=== PATIENT | female | born 1960 | race Caucasian/White ===

== ENCOUNTER 2025-06-03 15:24 | Inpatient (IN) | payer MEDICAID, SELFPAY ==
--- OUTSIDE RECORDS SUMMARY | 2025-05-26 12:45 | XMS_ITS | Encounter Summary ---
[facility] [address] [place] [address] Care Team Providers Care Maintainer Operator Name Role Phone Renato Hwang MD Primary Care Provider [phone] Reason for Visit * Reason Comments Hypertension Edema Encounter Details Date Type Department Care Team (Latest Contact Info) Description 05/26/2025 12:45 PM EDT Office Visit [facility] [address] [place] [address] Gerri Mchugh APRN [address] [place], [place] [id number] Preop cardiovascular exam (Primary Dx); Smoker; History [...] Rfl: fluticasone (FLONASE) 50 MCG/ACT nasal spray, [place] 1 spray every day by intranasal route., [...] or fail to improve. Patient or patient sales representative leather goods verbalized consent for the use of Ambient [...] shoulder documented in this encounter Care Teams Maintainer Operator Relationship Specialty Start Date End Date Renato Hwang MD [address] [place] [address] PCP - General Emergency Medicine 04/10/24 documented as of this encounter
--- OUTSIDE RECORDS SUMMARY | 2025-05-26 12:45 | XMS_ITS | Encounter Summary ---
[facility] [address] [place] [address] Care Team Providers Care Inspector Dials Name Role Phone Renato Hwang MD Primary Care Provider [phone] Reason for Visit * Reason Comments Hypertension Edema Encounter Details Date Type Department Care Team (Latest Contact Info) Description 05/26/2025 12:45 PM EDT Office Visit [facility] [address] [place] [address] Gerri Mchugh APRN [address] [place], [place] [id number] Preop cardiovascular exam (Primary Dx); Smoker; History [...] documented in this encounter Progress Notes * Gerir Mchugh APRN - 05/26/2025 12:45 PM EDT [...] Rfl: fluticasone (FLONASE) 50 MCG/ACT nasal spray, [place] 1 spray every day by intranasal route., [...] or fail to improve. Patient or patient bank representative verbalized consent for the use of [...] shoulder documented in this encounter Care Teams Inspector Dials Relationship Specialty Start Date End Date Renato Hwang MD [address] [place] [address] PCP - General Emergency Medicine 04/10/24 documented as of this encounter
[2025-06-03] VITALS (43 sets, daily range): BP systolic 90–114; BP diastolic 55–68; PULSE 84–121; RESP 14–26; TEMP 36.8–37.2; O2SAT 84–98; BMI 21.9
--- NOTE | 2025-06-03 15:30 | CT_ITS ---
PROCEDURE INFORMATION: Exam: CTA Chest With Contrast Exam date and time: 06/03/2025 4:57 PM Age: 65 years old Clinical indication: Cough and shortness of breath; Smoker's cough; Additional info: SOB, prev pe, cough smoker TECHNIQUE: Imaging protocol: Computed tomographic angiography of the chest with contrast. Exam focused on the arteries. 3D rendering (Not supervised by radiologist): MIP and/or 3D reconstructed images were created by the technologist. Radiation optimization: All CT scans at this facility use at least one of these dose optimization techniques: automated exposure control; mA and/or kV adjustment per patient size (includes targeted exams where dose is matched to clinical indication); or iterative reconstruction. Contrast material: ISO; Contrast volume: 80 ml; Contrast route: INTRAVENOUS (IV); COMPARISON: No relevant prior studies available. FINDINGS: Pulmonary arteries: Mild pulmonary artery enlargement. No PE. Aorta: Moderate atherosclerotic changes are seen within the thoracic aorta without evidence of aneurysm. Lungs: Septal line prominence at the lung apices. No acute airspace consolidation. Minor bibasilar atelectasis. Pleural spaces: Unremarkable. No pneumothorax. No pleural effusion. Heart: Unremarkable. No cardiomegaly. No pericardial effusion. Coronary arteries: Moderate coronary artery calcification. Lymph nodes: Unremarkable. No enlarged lymph nodes. Adrenal glands: 4.3 x 3.0 cm right adrenal adenoma. Bones/joints: Unremarkable. No acute fracture. Soft tissues: Unremarkable. IMPRESSION: 1. No PE. 2. Pulmonary artery hypertension. 3. Atherosclerotic changes. 4. Nonspecific biapical septal line prominence. 5. Right adrenal adenoma.
--- NOTE | 2025-06-03 15:38 | HMH.EDCP ---
Discharge Plan Referrals Follow up/Referrals: Renato Hwang MD [Primary Care Provider, Medical] - See instructions Clinical Impressions Clinical Impression: Hypoxic respiratory failure, Multiple sclerosis, Hypocalcemia, Hypokalemia, Elevated troponin Print Language Print Language: [place] Discharge ED Provider: Philip Joshi General Chief Complaint: Shortness of Breath/Dyspnea Stated Complaint: Low B/P and Low O2 Time Seen by Provider: 06/03/25 15:29 Mode of Arrival: Ambulatory Source of Information: Patient and EMS Description of Symptoms (Recalled from ER Triage Doc. by RN): parisa presents to ED via EMS for shortness of air. PAtient has no known respiratory diseases. Patient was satting in the 's. PAtient received steroids and a duoned en route to ER. History of Present Illness HPI narrative: Patient is 65-year-old female with past medical history of relapsing remitting MS not on Biologics currently pending outpatient continued evaluation, she has had this disease since 2000. Recent left femur fracture status postsurgical intervention in March, previous DVT on Eliquis for multiple years who presents emergency department for evaluation of shortness of breath. Patient smokes approximately 1.5 packs a day. Does not carry a diagnosis of COPD. She does not have chest pain. She was seen last week at PCPs office who prescribed her azithromycin and her symptoms with shortness of breath and cough have gotten worse over the weekend. Upon EMS arrival on scene patient was hypoxic and placed on high oxygen with resolution of saturations in the 90s. DuoNebs x 2, dexamethasone 10 mg. Patient takes Lasix for edema of her lower extremities but does not have heart failure. No other acute complaints at this time. Please note that above description of symptoms, in this electronic medical record under categorization of recalled from ER triage doctor by RN are reflective of an initial nursing assessment, however, is not reflective of my full history and physical exam that was personally taken and clarified. Consequentially, this preceding description of symptoms, which may include the patient's categorized chief complaint in the EMR, do not reflect my personal clinical impression, and the ultimate description of history of present illness and patient stated complaints should be deferred to this section of the note. Unless stated otherwise or congruent with this section of the note, additional signs, symptoms, or incongruence should be interpreted as inaccurate with my clinical impression. Related Data Allergies Allergy/AdvReac Type Severity Reaction Status Date / Time aspirin Allergy Hives Verified 06/03/25 15:48 cefaclor (From Ceclor) Allergy Rash Verified 06/03/25 15:48 floxacillin Allergy Rash Verified 06/03/25 15:48 PFSH [facility] Disclaimer: The information contained in this section may have been updated after the patient was seen, as this information can be updated by other users. Social History Smoking Status: Current every day smoker alcohol intake: never current occupational status: other Travel in the last 8 weeks?: None ROS Obtained: Yes Systems reviewed as appropriate & no additional complaints except as documented Physical Exam General General appearance: alert Head Head exam: atraumatic and normocephalic Eye Eye exam: Present PERRL and EOMI ENT ENT exam: Present mucous membranes moist Neck Neck exam: Present normal inspection Chest Chest inspection: Present normal inspection and symmetric chest wall rise Respiratory Respiratory exam: Present respiratory distress, wheezes and accessory muscle use Cardiovascular Cardiovascular exam: Present normal rhythm and tachycardia Abdominal Exam Abdominal exam: Present soft; Absent tenderness Extremities Exam Extremities exam: Present other (petechial rash mid webb down BLE); Absent normal inspection or edema Neurological Exam Neurological exam: Present alert Psychiatric Psychiatric exam: Present normal affect Skin Skin exam: Present warm and dry HEART Score HEART Score HEART Score assessment performed?: Yes History (anamnesis): Moderately suspicious ECG: Non-specific disturbance Age: 45-65 years Risk factors: 1-2 risk factors Troponin: 1-3x normal limit HEART Score: 5 Critical Care Critical Care Time Critical Care Time: Yes Attestation: On 06/03/25, the high probability of a clinically significant, sudden or life threatening deterioration of the following system(s) required my full and direct attention, intervention and personal management. The time I documented below is in addition to time spent performing reported procedures but includes the following listed in this critical care notation. Total Time Total Critical Care Time: 65 Medical Decision Making Satish Inquiry Pt receiving controlled substance: No Vital Signs Vital Signs: 06/03/25 15:27 06/03/25 15:30 06/03/25 15:31 Temperature 98.2 F Temperature Source Oral Pulse Rate 102 H 104 H Pulse Rate [Right Radial] 105 H Respiratory Rate 22 24 Blood Pressure 96/64 L Blood Pressure [Left Arm] 96/64 L Blood Pressure Mean Blood Pressure Mean [Left Arm] 74 Blood Pressure Source [Left Arm] Automatic Cuff Blood Pressure Position [Left Arm] Sitting 02 Sat by Pulse Oximetry 92 L 88 L 88 L Oxygen Delivery Method Nasal Cannula Oxygen Flow Rate (LPM) 4 Fraction of Inspired Oxygen 06/03/25 15:32 06/03/25 15:34 06/03/25 15:45 Temperature Temperature Source Pulse Rate 105 H 109 H 104 H Pulse Rate [Right Radial] Respiratory Rate 20 22 20 Blood Pressure 90/61 L 93/59 L Blood Pressure [Left Arm] Blood Pressure Mean Blood Pressure Mean [Left Arm] Blood Pressure Source [Left Arm] Blood Pressure Position [Left Arm] 02 Sat by Pulse Oximetry 85 L 97 85 L Oxygen Delivery Method Nasal Cannula Oxygen Flow Rate (LPM) 5 Fraction of Inspired Oxygen 06/03/25 16:00 06/03/25 16:00 06/03/25 16:00 Temperature Temperature Source Pulse Rate 100 H 102 H Pulse Rate [Right Radial] Respiratory Rate 21 Blood Pressure 93/62 L Blood Pressure [Left Arm] Blood Pressure Mean 71 Blood Pressure Mean [Left Arm] Blood Pressure Source [Left Arm] Blood Pressure Position [Left Arm] 02 Sat by Pulse Oximetry 86 L Oxygen Delivery Method Oxygen Flow Rate (LPM) Fraction of Inspired Oxygen 06/03/25 16:15 06/03/25 16:30 06/03/25 16:30 Temperature Temperature Source Pulse Rate 103 H 106 H Pulse Rate [Right Radial] Respiratory Rate 22 19 Blood Pressure 93/59 L Blood Pressure [Left Arm] Blood Pressure Mean 69 Blood Pressure Mean [Left Arm] Blood Pressure Source [Left Arm] Blood Pressure Position [Left Arm] 02 Sat by Pulse Oximetry 98 97 Oxygen Delivery Method Oxygen Flow Rate (LPM) Fraction of Inspired Oxygen 06/03/25 16:45 06/03/25 17:05 06/03/25 17:15 Temperature Temperature Source Pulse Rate 114 H 112 H 114 H Pulse Rate [Right Radial] Respiratory Rate 24 24 20 Blood Pressure Blood Pressure [Left Arm] Blood Pressure Mean Blood Pressure Mean [Left Arm] Blood Pressure Source [Left Arm] Blood Pressure Position [Left Arm] 02 Sat by Pulse Oximetry 97 87 L 93 L Oxygen Delivery Method Oxygen Flow Rate (LPM) Fraction of Inspired Oxygen 06/03/25 17:30 06/03/25 17:45 06/03/25 18:00 Temperature Temperature Source Pulse Rate 118 H 119 H 121 H Pulse Rate [Right Radial] Respiratory Rate 22 19 16 Blood Pressure Blood Pressure [Left Arm] Blood Pressure Mean Blood Pressure Mean [Left Arm] Blood Pressure Source [Left Arm] Blood Pressure Position [Left Arm] 02 Sat by Pulse Oximetry 94 L 91 L 89 L Oxygen Delivery Method Oxygen Flow Rate (LPM) Fraction of Inspired Oxygen 06/03/25 18:15 06/03/25 18:21 06/03/25 18:25 Temperature Temperature Source Pulse Rate 115 H Pulse Rate [Right Radial] Respiratory Rate Blood Pressure Blood Pressure [Left Arm] Blood Pressure Mean Blood Pressure Mean [Left Arm] Blood Pressure Source [Left Arm] Blood Pressure Position [Left Arm] 02 Sat by Pulse Oximetry 92 L 92 L Oxygen Delivery Method Nasal Cannula Vapotherm Oxygen Flow Rate (LPM) 5 25 Fraction of Inspired Oxygen 75 06/03/25 18:30 06/03/25 18:45 06/03/25 19:00 Temperature Temperature Source Pulse Rate 112 H 108 H Pulse Rate [Right Radial] Respiratory Rate 23 19 Blood Pressure 103/61 L 101/55 L Blood Pressure [Left Arm] Blood Pressure Mean 73 Blood Pressure Mean [Left Arm] Blood Pressure Source [Left Arm] Blood Pressure Position [Left Arm] 02 Sat by Pulse Oximetry 97 96 Oxygen Delivery Method Oxygen Flow Rate (LPM) Fraction of Inspired Oxygen 06/03/25 19:13 06/03/25 19:13 06/03/25 19:15 Temperature Temperature Source Pulse Rate 105 H 105 H Pulse Rate [Right Radial] Respiratory Rate 17 21 Blood Pressure 101/55 L Blood Pressure [Left Arm] Blood Pressure Mean Blood Pressure Mean [Left Arm] Blood Pressure Source [Left Arm] Blood Pressure Position [Left Arm] 02 Sat by Pulse Oximetry 93 L 86 L 84 L Oxygen Delivery Method Vapotherm Vapotherm Oxygen Flow Rate (LPM) 40 Fraction of Inspired Oxygen 35 06/03/25 19:30 06/03/25 19:45 06/03/25 19:51 Temperature Temperature Source Pulse Rate 107 H 102 H Pulse Rate [Right Radial] Respiratory Rate 22 20 Blood Pressure 113/65 Blood Pressure [Left Arm] Blood Pressure Mean Blood Pressure Mean [Left Arm] Blood Pressure Source [Left Arm] Blood Pressure Position [Left Arm] 02 Sat by Pulse Oximetry 93 L 92 L 91 L Oxygen Delivery Method Vapotherm Oxygen Flow Rate (LPM) 40 Fraction of Inspired Oxygen 45 06/03/25 20:00 06/03/25 20:15 06/03/25 20:30 Temperature Temperature Source Pulse Rate 97 H 104 H Pulse Rate [Right Radial] Respiratory Rate 17 19 Blood Pressure 105/57 L 108/67 L Blood Pressure [Left Arm] Blood Pressure Mean 70 Blood Pressure Mean [Left Arm] Blood Pressure Source [Left Arm] Blood Pressure Position [Left Arm] 02 Sat by Pulse Oximetry 94 L 93 L Oxygen Delivery Method Oxygen Flow Rate (LPM) Fraction of Inspired Oxygen 06/03/25 20:45 06/03/25 21:00 06/03/25 21:01 Temperature Temperature Source Pulse Rate 97 H 107 H 102 H Pulse Rate [Right Radial] Respiratory Rate 17 14 18 Blood Pressure 113/60 Blood Pressure [Left Arm] Blood Pressure Mean Blood Pressure Mean [Left Arm] Blood Pressure Source [Left Arm] Blood Pressure Position [Left Arm] 02 Sat by Pulse Oximetry 94 L 96 92 L Oxygen Delivery Method Oxygen Flow Rate (LPM) Fraction of Inspired Oxygen 06/03/25 21:25 Temperature Temperature Source Pulse Rate 102 H Pulse Rate [Right Radial] Respiratory Rate 25 H Blood Pressure 113/60 Blood Pressure [Left Arm] Blood Pressure Mean Blood Pressure Mean [Left Arm] Blood Pressure Source [Left Arm] Blood Pressure Position [Left Arm] 02 Sat by Pulse Oximetry 93 L Oxygen Delivery Method Vapotherm Oxygen Flow Rate (LPM) 40 Fraction of Inspired Oxygen Lab Data Labs: Lab Results 06/03/25 15:37: WBC 11.2 H, RBC 5.17, Hgb 14.3, Hct 44.3, MCV 85.7, MCH 27.7, MCHC 32.3, RDW 17.0, Plt Count 291, MPV 9.5, Neut % (Auto) 77.8, Lymph % (Auto) 12.8, Barnes % (Auto) 7.5, Eos % (Auto) 0.1, Baso % (Auto) 1.3, Neut # (Auto) 8.7 H, Lymph # (Auto) 1.4, Barnes # (Auto) 0.8, Eos # (Auto) 0.0, Baso # (Auto) 0.1, VBG pH 7.37, VBG pCO2 49.1, VBG pO2 41.8 H, VBG HCO3 27.9, VBG Total CO2 29.4 H, VBG O2 Saturation 76.6 H, VBG Base Excess 2.7 H, VBG Lactic Acid 1.9, Sodium 138, Potassium 3.2 L, Chloride 99, Carbon Dioxide 34 H, Anion Gap 8.2, BUN 29 H, Creatinine 1.10 H, Estimated Creat Clear 52, Estimated GFR 50 L, Est GFR ( Amer) 61, Glucose 163 H, Calcium 7.9 L, Magnesium 1.7, Total Bilirubin 0.4, AST 53 H, ALT 25, Alkaline Phosphatase 98, Troponin I 0.03, NT-Pro-B Natriuret Pep 7330 H, Total Protein 7.2, Albumin 3.9, Globulin 3.3 H, Albumin/Globulin Ratio 1.2, TSH < 0.02 L, Free T4 2.44 H 06/03/25 18:50: VBG pH 7.34, VBG pCO2 58.0 H, VBG pO2 56.9 H, VBG HCO3 30.7 H, VBG Total CO2 32.4 H, VBG O2 Saturation 88.1 H, VBG Base Excess 4.9 H, VBG Lactic Acid 3.5 H 06/03/25 18:57: Chlamy pneumoniae PCR Not detected, Adenovirus (PCR) Not detected, B. pertussis DNA (PCR) Not detected, Coronavirus OC43 (PCR) Not detected, Coronavirus HKU1 (PCR) Not detected, Coronavirus 229E (PCR) Not detected, SARS-CoV-2 (PCR) Not detected, Coronavirus NL63 (PCR) Not detected, Human Metapneumovir PCR Not detected, Influenza A (H1) PCR Not detected, Influ A (H1N1/09) PCR Not detected, Influenza A (H3) PCR Not detected, Influenza Type A (PCR) Not detected, Influenza Type B (PCR) Not detected, M. pneumoniae (PCR) Not detected, Parainfluenza 1 (PCR) Not detected, Parainfluenza 2 (PCR) Not detected, Parainfluenza 3 (PCR) Not detected, Parainfluenza 4 (PCR) Not detected, RSV (PCR) Not detected, Entero/Rhino (PCR) Detected A 06/03/25 19:10: Troponin I 0.04 H 06/03/25 21:31: VBG pH 7.39, VBG pCO2 50.2, VBG pO2 75.8 H, VBG HCO3 29.4, VBG Total CO2 30.9 H, VBG O2 Saturation 94.7 H, VBG Base Excess 4.3 H, VBG Lactic Acid 3.5 H, Troponin I 0.05 H 06/03/25 15:37 06/03/25 15:37 Response Orders (Tests/Meds): ED MEDICATIONS Generic Name Dose Route Start Last Admin Trade Name Freq PRN Reason Stop Dose Admin Nicotine 21 mg 06/03/25 20:56 06/03/25 21:05 Nicotine 21mg/24hr Patch TD 07/03/25 20:55 21 mg DAILYP PRN Administration Nicotine Cravings Discontinued Medications Generic Name Dose Route Start Last Admin Trade Name Freq PRN Reason Stop Dose Admin Albuterol Sulfate 20 mg 06/03/25 15:34 06/03/25 16:00 Albuterol 0.083% 2.5 Mg/3 Ml Neb IH 06/03/25 15:35 20 mg ONCE ONE Administration Ceftriaxone Sodium 1 gm/ 50 mls @ 100 mls/hr 06/03/25 15:34 06/03/25 17:50 Sodium Chloride IV 06/03/25 16:03 Infused ONCE ONE Infusion Doxycycline Hyclate 100 mg/ 250 mls @ 166.667 mls/hr 06/03/25 15:35 06/03/25 17:52 Sodium Chloride IV 06/03/25 15:36 Infused ONCE ONE Infusion Lactated Ringer's 500 mls @ 250 mls/hr 06/03/25 15:35 06/03/25 20:45 Lactated Ringer's 500ml IV 06/03/25 17:34 Infused .Q2H ONE Infusion Calcium Gluconate/Sodium Chloride 2 gm in 100 mls @ 50 mls/hr 06/03/25 17:46 06/03/25 20:44 Calcium Gluconate 2,000mg/100ml Nacl Premix IV 06/03/25 19:45 Infused ONCE ONE Infusion Methylprednisolone Sodium 250 mls @ 500 mls/hr 06/03/25 18:30 06/03/25 19:47 Succinate 1,000 mg/ Sodium IV 06/03/25 18:59 Infused Chloride ONCE ONE Infusion Iopamidol 80 ml 06/03/25 16:57 06/03/25 16:58 Iopamidol-370 (76%);100ml Bottle IV 06/03/25 16:58 80 ml ONCE ONE Administration Methylprednisolone Sodium Succinate 1,000 mg 06/03/25 18:27 06/03/25 19:05 Methylprednisolone Sod Succ 125mg Vial IV 06/03/25 18:28 Not Given ONCE ONE Potassium Chloride 40 meq 06/03/25 17:46 06/03/25 18:45 Potassium Chloride 20meq Tab PO 06/03/25 17:47 40 meq ONCE ONE Administration Sodium Chloride 50 ml 06/03/25 16:57 06/03/25 16:58 0.9 % Sodium Chloride 50 Ml Vial IV 06/03/25 16:58 50 ml ONCE ONE Administration Sodium Chloride 10 ml 06/03/25 16:57 06/03/25 16:58 Sodium Chloride 0.9% 10ml Syr (Rad Only) IV 06/03/25 16:58 10 ml ONCE ONE Administration ORDERS Category Date Time Status CT angio chest PE protocol Stat Cat Scan 06/03/25 15:30 Completed POCUS Point of Care (ER Only) Stat Exams 06/03/25 16:41 Completed BNP [NT Pro Brain Natriuretic Pep.] Stat Lab 06/03/25 15:37 Completed CBC w/Auto Diff [Complete Blood Count Auto Diff] Stat Lab 06/03/25 15:37 Completed CMP [Comprehensive Metabolic Panel] Stat Lab 06/03/25 15:37 Completed Free T4 (Free Thyroxine) Stat Lab 06/03/25 15:37 Completed Full Resp Panel w/COVID ([facility]) Routine Lab 06/03/25 18:57 Completed Magnesium Stat Lab 06/03/25 15:37 Completed TSH [Thyroid Stimulating Hormone] Stat Lab 06/03/25 15:37 Completed Trop I [Troponin I] Stat Lab 06/03/25 15:37 Completed Troponin I Q3H Lab 06/03/25 19:10 Completed Troponin I Q3H Lab 06/03/25 21:31 Completed VBG [Venous Blood Gas] Stat RT 06/03/25 15:37 Completed VBG [Venous Blood Gas] Stat RT 06/03/25 18:50 Completed VBG [Venous Blood Gas] Stat RT 06/03/25 21:31 Completed ECG Data Tracing #1: ECG Narrative: Independently interpreted by me rate is 104, rhythm is regular, axis is normal, no ST elevation in anatomical contiguous leads, T wave inversions in V2 through V4 without reciprocal changes of unknown significance given that patient is not currently having chest pain. MDM Narrative Medical Decision Narrative: In summary patient is 65-year-old female past medical history described above presents emergency department for evaluation of shortness of breath in setting of MS and chronic smoking. Patient is hemodynamically stable nontoxic-appearing upon arrival, afebrile. Given the acuity of this with productive cough I suspect it is more likely that patient has a COPD exacerbation with pneumonia then primary MS associated problem. Patient has received 2 DuoNebs prior to arrival, dexamethasone. Patient is in continued respiratory distress. She will be titrated to oxygen saturations between 88 and 92%. Her petechial rash in her bilateral lower extremities she is states is chronic and is not new. She does not appear critically ill so I doubt DIC at this time. Full sepsis bolus fluids were considered but limited judicious fluid administration will be conducted given her history that she is on Lasix with 250 cc an hour of lactated Ringer's for 2 hours. Antibiotics will be administered with ceftriaxone and doxycycline. She has had a rash to Ceclor but she has been given steroids and we will monitor this given it is a higher generation cephalosporin. She failed azithromycin so we will broaden with doxycycline. Workup in total be conducted with hematologic labs VBG CT pulmonary embolism protocol, EKG, troponin. Patient is negative and /22. She is protecting her airway will defer intubation at this time although she is slightly tachypneic respiratory rate 30 times per minute will keep a close eye on her. She has a weak cough. Initial workup reviewed by me, hematologic labs are largely nonactionable with exception of hypokalemia and hypocalcemia which will be repleted. Formal read shows evidence of pulmonary artery hypertension, nonspecific biapical septal line prominence, right sided incidental adrenal adenoma 4.3 x 3 cm. Upon repeat evaluation patient appears well-perfused and euvolemic therefore we will stop crystalloid resuscitation given [id number] ultrasound shows decreased ejection fraction and sepsis bolus fluids was considered will be deferred. Procedure: Procedure form was [id number] ultrasound. Procedure performed by Philip Joshi. Using the phased array probe parasternal long and apical four-chamber views were obtained, slightly decreased ejection fraction no large pericardial effusion. Images were saved to permanent archive and were technically adequate. Patient tolerated the procedure well. I discussed the case with Jani Brown with [facility] at approximately 5:40 PM. Unfortunately they are on high-level divert and are unable to accept this patient at this time and recommend that I call [facility]. Stated that if I am unable to transfer patient to call back in the morning and see if they can override divert but will not place the patient on the wait list at this time. I spoke with critical care non destructive evaluation specialist for [facility] on-call at 6:05 PM, they are of the opinion that patient is stable enough for the floor. Given that their VBG looks okay I do agree with this patient will likely need BiPAP but at [facility] they are able to conduct this on the floor therefore the hospitalist will call me back. Upon repeat evaluation patient is requiring 6 L nasal cannula will transition to high flow Vapotherm at this time. At this time we will give 1000 mg of methylprednisolone IV given patient will be here for a possible significant amount of time. VBG will be repeated. CO2 is uptrending and is now 58 but still has compensated acid-base status had significant improvement of tachypnea after putting on Vapotherm 40 L 60% is now breathing approximately 20 times a minute. Lactic acid went from 1-3.5 however given the amount of DuoNebs and the fact the original 1 is normal and patient is well-perfused I suspect this is type B. I discussed case once again with critical care non destructive evaluation specialist [facility] on-call at approximately 8:50 PM. Unfortunately they have no beds at this time and are able to take this patient. I will now contact [facility]. Patient is currently on high flow nasal cannula 40 L 45%. Swabs positive for rhino enterovirus. [facility] was contacted who called back at approximately 9:15 PM, they are at maximum capacity except for trauma and palmer. Will contact [facility] at this time. Repeat VBG at this time shows stable respiratory status. On repeat evaluation patient has respiratory rate in the low 20s which is improved from the low 30s originally. I discussed case with [facility] Dr. Conteh who graciously accepted patient for transfer for continued evaluation at this time.
[2025-06-03 15:45] LABS: Hematocrit 44.3 % (37.0-47.0); Hemoglobin 14.3 g/dL (12.2-16.2); Immature Granulocytes % 0.5 %; Mean Corpuscular HGB Conc 32.3 g/dL (31.8-35.4); Mean Corpuscular Hemoglobin 27.7 pg (27.0-31.2); Mean Corpuscular Volume 85.7 fl (81-99); Nucleated Red Blood Cells % 0 %; Platelet Count 291 K/mm3 (142-424); Red Blood Count 5.17 M/mm3 (4.20-5.40); Red Cell Distribution Width-SD 52.4 fL; White Blood Count 11.2 K/mm3 (4.8-10.8)
[2025-06-03 15:50] LABS: Lactate Venous 1.9 mmol/L (0.4-2.0); VBG HCO3 27.9 mmol/L (23-30); VBG PCO2 49.1 mmol/L (35-51); VBG PH 7.37 mmol/L (7.31-7.41); VBG PO2 41.8 mmol/L (28-40)
[2025-06-03] MEDS: CEFTRIAXONE 1 GM 1 GM in 0.9 % SODIUM CHLORIDE 50 ML IV (15:55)
[2025-06-03] MEDS: DOXYCYCLINE HYCLATE 100 MG in 0.9 % SODIUM CHLORIDE 250 ML 166.67 MG IV (15:58)
[2025-06-03] MEDS: RINGERS SOLUTION,LACTATED 500 ML 250 ML IV (15:59)
[2025-06-03] MEDS: ALBUTEROL 0.083% 2.5 MG/3 ML NEB 20 MG IH (16:00)
--- OUTSIDE RECORDS SUMMARY | 2025-06-03 16:00 | XMS_ITS | Encounter Summary ---
[facility] Organization [facility] Address [address] [place] [address] Care Team Providers Care Acetylene Torch Operator Name Role Phone Renato Hwang MD Primary Care Provider [phone] Encounter Details Date Type Department Care Team (Late st Contact Info) Description 05/26/2025 Patient rounding ([facility] only) [facility] [address] [place] [address] Gerri Mchugh APRN [address] [place], [place] [id number] Social History Tobacco Use Types Packs/Day Years [...] PM EDT documented as of this encounter Progress Notes * Carole Sosa RegSched Rep - 05/26/2025 2:16 PM EDT ..My name is Tawny Marie and I am the Thermal Surfacing Machine Operator for [facility]. I would like to thank you for being a loyal patient. If you do not mind I would like to ask you a few questions about your recent visit with us. Please feel free to reply if you wish to provide us with feedback on your first visit with our practice. First, could you tell me what went well with your recent visit? Secondly, we are always looking for ways to make our patients' experiences even better. Do you haveany recommendations on ways we may improve? Finally, overall were you satisfied with your first visit to us as a [facility]? In the next few days, you will be receiving a Patient Experience Survey. Thank you for taking the time to answer a few questions today. I hope you have a good day. documented in this encounter Plan of Treatment Not on file documented as of this encounter Visit Diagnoses Not on filedocumented in this encounter Care Teams Acetylene Torch Operator Relationship Specialty Start Date End Date Renato Hwang MD [address] [place] [address] PCP - General Emergency Medicine 04/10/24 documented as of this encounter
--- OUTSIDE RECORDS SUMMARY | 2025-06-03 16:00 | XMS_ITS | Encounter Summary ---
[facility] [address] [place] [address] Care Team Providers Care Etl Manager Name Role Phone Renato Hwang MD Primary Care Provider [phone] Encounter Details Date Type Department Care Team (Late st Contact Info) Description 05/13/2025 Telephone [facility] [address] [place] [address] Gerri Mchugh APRN [address] [place], [place] [id number] Social History Tobacco Use Types Packs/Day Years [...] PM EDT documented as of this encounter Miscellaneous Notes * Telephone Encounter - iHmanshu Calvillo RegSched Rep - 05/13/2025 10:03 AM EDT CC FAXED TO [facility] 05/13 @ 10:02 documented in this encounter Plan of Treatment Not on file documented as of this encounter Visit Diagnoses Not on filedocumented in this encounter Care Teams Etl Manager Relationship Specialty Start Date End Date Renato Hwang MD [address] [place] [address] PCP - General Emergency Medicine 04/10/24 documented as of this encounter
--- OUTSIDE RECORDS SUMMARY | 2025-06-03 16:00 | XMS_ITS | Encounter Summary ---
[facility] Address [address] [place] [address] Care Team Providers Care Rn Field Name Role Phone Renato Hwang MD Primary Care Provider [phone] Reason for Visit * Reason Onset Date Comments DR. LAW - CARDIAC CLEARANCE 05/11/2025 Encounter Details Date Type Department Care Team (Late st Contact Info) Description 05/11/2025 Telephone [facility] [address] [place] [address] Britni Law MD [address] [place] [address] DR. LAW - CARDIAC CLEARANCE Social History Tobacco Use Types Packs/Day Years [...] encounter Miscellaneous Notes * Telephone Encounter - Marcela Glasgow MA - 05/11/2025 4:14 PM EDT .Any new symptoms since last OV such as chest pain SOA? No Any worsening of edema or worsening palpitations? No Any major medical issues since last OV we need to know? Fracture femur Is the patient on Eliquis, xarelto, pradaxa? Yes, Eliquis 2.5 mg bid Is the patient on aspirin? No Is the patient on brilinta (ticagrelor), plavix (clopidogrel), prasugrel (effient)? No Is the patient on medications like mounjaro or ozempic? No Last EKG? 01-12-25 Last stress test? No Last echo? No Last heart cath or CCTA? No Last OV? 01-27-25 with Stephanie Do you have a history of MARY? No * Telephone Encounter - Elena Cho RegSched Rep - 05/11/2025 3:55 PM EDT REQUEST FOR CARDIAC CLEARANCE Caller name: Vivi Mueller Phone Number: Telephone Information: Surgeon's name: DR. TAFOYA Type of planned surgery: RIGHT SHOULDER REPLACEMENT Date of planned surgery: WAITING FOR CLEARANCE Type of anesthesia: UNKNOWN Have you been experiencing chest pain or shortness of breath? NO Is your doctor requesting for you to stop any of your medications prior to your surgery? ELIQUIS Where should we fax the clearance to? UNKNOWN - PATIENT HAS RECEIVED CLEARANCE FOR THIS SURGERY BEFORE BUT WAS UNABLE TO COMPLETE SURGERY DUE TO UNRELATED INJURY. PLEASE ADVISE. documented in this encounter Plan of Treatment Not on file documented as of this encounter Visit Diagnoses Not on filedocumented in this encounter Care Teams Rn Field Relationship Specialty Start Date End Date Renato Hwang MD [address] [place] [address] PCP - General Emergency Medicine 04/10/24 documented as of this encounter
--- OUTSIDE RECORDS SUMMARY | 2025-06-03 16:00 | XMS_ITS | Clinical Summary ---
Author Organization [facility] Address [address] [place] [address] Care Team Providers Care Solution Spec Name Role Phone Renato Hwang MD Primary Care Provider [phone] Allergies Active Allergy Reactions Criticality Noted Date Comments Aspirin Anaphylaxis,Hives,Un known (See Comments) High 09/04/2014 Cefaclor Hives,Unknown (See Comments) Medium 014 Ofloxacin Hives,Itching,Unknown (See Comments) Medium 09/04/2014 Medications triamterene-hydroc hlorothiazide (MAXZIDE-25) 37.5-25 MG per tablet Take 0.5 tablets by mouth Daily. Active Cholecalciferol (vitamin D3) 125 MCG (5000 UT) tablet tablet Take 1 tablet by mouth Daily. Active Synthroid 150 MCG tablet Take 1 tablet every day by oral route in the morning for 30 days. Active Ferrous Sulfate ER (Slow Fe) 45 MG tablet controlled-release A ctive Biotin 5000 MCG capsule Active sertraline (ZOLOFT) 100 MG tablet Take 1 tablet by mouth Daily. Active Eliquis 5 MG tablet tablet Take 1 tablet twice a day by oral route as directed. Active gabapentin (NEURONTIN) 300 MG capsule Take 1 capsule by mouth 4 (Four) Times a Day. Active clonazePAM (KlonoPIN) 1 MG tablet Take 1 tablet by mouth 2 (Two) Times a Day. Active simvastatin (ZOCOR) 20 MG tablet Take 1 tablet by mouth Daily. Active promethazine (PHENERGAN) 25 MG tablet take 1 tablet by mouth 4 times a day as needed Active baclofen (LIORESAL) 10 MG tablet Take 1 tablet 4 times a day by oral route. Active amLODIPine (NORVASC) 2.5 MG tablet Take 1 tablet by mouth Daily. Active ondansetron ODT (ZOFRAN-ODT) 8 MG disintegrating tablet DISSOLVE 1 tablet ON THE TONGUE twice a day as needed. Active fluticasone (FLONASE) 50 MCG/ACT nasal spray [place] 1 spray every day by intranasal route. Active docusate sodium (COLACE) 250 MG capsule Active oxyCODONE-acetamin ophen (PERCOCET) 10-325 MG per tablet Take 1 tablet by mouth Every 12 (Twelve) Hours. Active Pyridoxine HCl (Vitamin B6) 100 MG tablet Take 1 tablet by mouth Daily. Active SUMAtriptan (IMITREX) 50 MG tablet Take 1 tablet by mouth Every 12 (Twelve) Hours. Active Active Problems Problem Noted Date Diagnosed Date Acute pain of right shoulder 01/31/2025 Assessment & Plan (01/31/2025 10:46 PM EDT): She plans to have a right shoulder arthroscopy with Dr. Ayala. She reports she understands but that she is in so much pain with her right shoulder/arm that she would crawl across gravel to have the surgery. Her multiple sclerosis makes her very weak and unsteady and now she cannot do her ADL's due to the right shoulder. So she is mostly wheelchair bound until she has her shoulder repaired. Smoker 01/31/2025 Overview (01/31/2025): 1-1.5 PPD since 1994 Assessment & Plan (01/31/2025 10:36 PM EDT): 1-1.5 PPD since 1994 Preop cardiovascular exam 01/12/2025 Assessment & Plan (02/03/2025 3:59 PM EDT): Discussed with patient that we cannot give her a true risk assessment regarding cardiac risk of anesthesia since her insurance denied her echocardiogram and stress test. She plans to have a right shoulder arthroscopy with Dr. Ayala. She reports she understands but that she is in so much pain with her right shoulder/arm that she would crawl across gravel to have the surgery. Her multiple sclerosis makes her very weak and unsteady and now she cannot do her ADL's due to the right shoulder. So she is mostly wheelchair bound until she has her shoulder repaired. She denies any chest pain, SOA, edema, palpitations, dizziness (but does have unstable gait and weakness), or syncope. She does have hypertension and smokes 1-1.5 PPD for the past 45 years. Denies ever having had any issues with anesthesia in the past. And she says she has never been diagnosed with a sleep disorder such as sleep apnea. -Abnormal EKG, Smoker, HX DVT, mobility issues. Messaged Dr. Law regarding Eliquis she takes for history of DVT, if we will be addressing it being held, and if Lovenox bridging will be needed. Will send cardiac clearance after I hear back from Dr. Law. Addendum 02/03/[address] Law we do not manage the Eliquis (and patient is new to us) so it will need to addressed by PCP or prescribing provider. However, if they do decide to bridge with lovenox we can give our recommendations on that. Assessment & Plan (01/12/2025 4:59 PM EDT): Will need echo and nuclear stress test first. Abnormal EKG 01/12/2025 Assessment & Plan (01/31/2025 10:46 PM EDT): insurance did not approve an echo or nuclear stress test for pre-operative cardiac assessment. Patient is asymptomatic. Assessment & Plan (01/12/2025 4:58 PM EDT): Check echo and nuclear stress test History of DVT (deep vein thrombosis) 01/12/2025 Overview (01/12/2025): On Eliquis. DVT in 2013 MS (multiple sclerosis) 07/10/2024 Assessment & Plan (07/10/2024 3:26 PM EDT): MRI B/C Labs Blistering 07/10/2024 Assessment & Plan (07/10/2024 3:26 PM EDT): Possible buerger's disease Refer to Dermatology Migraine Essential hypertension Assessment & Plan (01/12/2025 4:58 PM EDT): Risk factor for CAD Hyperlipidemia HL (hearing loss) Difficulty walking Assessment & Plan (01/12/2025 4:59 PM EDT): MS- will need nuclear Cluster headache Encounters Date Type Department Care Team Description 05/26/2025 12:45 PM EDT Office Visit [facility] [address] [phone] Gerri Mchugh, NURSING UNIT COORDINATOR Preop cardiovascular exam (Primary Dx); Smoker; History of DVT (deep vein thrombosis); Acute pain of right shoulder 05/26/2025 Patient rounding ([facility] only) [facility] [address] [phone] Gerri Mchugh, [place] 05/26/2025 Travel 05/13/2025 Telephone [facility] [address] [phone] Gerri Mchugh, [place] 05/11/2025 Telephone [facility] [address] [phone] WAESPE - CARDIAC CLEARANCE from Last 3 Months Family History Medical History Relation Name Comments Migraines Mother Brittany Mancia Stroke Mother Brittany Mancia Relation Name Status Comments Mother Brittany Mancia Social History Tobacco Use Types Packs/Day Years Used Date Smoking Tobacco: Every Day Cigarettes 1.5 46.3 Started: 02/28/1979 Smokeless Tobacco: Never Tobacco Cessation:Ready to Q uit: No; Counseling Given: No Alcohol Use Standard Drinks/Week Comments Never 0 (1 standard drink = 0.6 oz pur e alcohol) Comments Unknown Sex and Gender Information Value Date Recorded Sex Assigned at Female 05/13/2025 1:37 PM EDT Legal Sex Female 10:19 AM EDT Gender Identity Not on file Sexual Orientation Straight 05/13/2025 1: 37 PM EDT Last Filed Vital Signs Vital Sign Reading Time Taken Comments Blood Pressure 118/68 05/26/2025 1:08 PM EDT Pulse 84 05/26/2025 1:08 PM EDT Temperature - - Respiratory Rate 19 05/26/2025 1:08 PM EDT Oxygen Saturation 96% 05/26/2025 1:08 PM EDT Inhaled Oxygen Concentration - - Weight 62.6 kg (138 lb) 01/12/2025 2:57 PM EDT Height 170.2 cm (5' 7.01 ) 05/26/2025 1:08 PM ED T Body Mass Index 21.61 01/12/2025 2:57 PM EDT Plan of Treatment Health Maintenance Due Date Last Done Comments Annual Gynecologic Pelvic an d Breast Exam 1962 LIPID PANEL 1962 TDAP/TD VACCINES (1 - Tdap) 1981 PAP SMEAR 1983 MAMMOGRAM 2002 COLON CANCER SCREENING 5 YEA R SIGMOID[address]COPY [address] COLONOGRAPHY 2007 FECAL OCCULT BLOOD TEST 2007 FIT Testing (1 year) 2007 LUNG CANCER SCREENING 2012 ZOSTER VACCINE (1 of 2) 2012 ANNUAL PHYSICAL 07/10/2024 COVID-19 Vaccine (5 - 2024-2 6 season) 2025 08/15/2022, 08/22/2021, 02/01/2021, Additional history exists INFLUENZA VACCINE 06/30/2025 07/06/2024, , 08/15/2022, Additional history exists COLOGUARD 04/12/2027 04/12/2024 COLONOSCOPY 05/25/2034 05/25/2024, 03/16/2014 COLORECTAL CANCER SCREENING 05/25/2034 Pneumococcal Vaccine 50+ Completed 07/06/2024, 02/2009 HEPATITIS C SCREENING Completed 07/10/2024 Procedures Procedure Name Priority Date/Time Associated Diagnosis Comments HEPATITIS PANEL, ACUTE Routine 07/10/2024 3:32 PM EDT MS (multiple sclerosis) from Last 3 Months or Most Recently Relevant to Health Maintenance Results * Hepatitis Panel, Acute (07/10/2024 3:32 PM EDT) Hepatitis B Surface Ag Non-Reacti ve Non-Reacti ve 07/11/2024 12:09 AM EDT [facility] Hep A IgM Non-Reacti ve Non-Reacti ve 07/11/2024 12:09 AM EDT [facility] Hep B C IgM Non-Reacti ve Non-Reacti ve 07/11/2024 12:09 AM EDT [facility] Hepatitis C Ab Non-Reacti ve Non-Reacti ve 07/11/2024 12:09 AM EDT [facility] Blood Venipuncture / Unknown 07/10/2024 3:32 PM EDT 07/10/2024 3:32 PM EDT Narrative [facility] - 07/11/2024 12:09 AM EDT Results may be falsely decreased if patient taking Biotin. us Rohan Mcelroy MD LAB BLOOD ORDERABLES Final Re sult [facility]
[address] [place] [address], from Last 3 Months or Most Recently Relevant to Health Maintenance Insurance Care Teams Solution Spec Relationship Specialty Start Date End Date Renato Hwang MD [address] [place], [place] [phone] (Work) PCP - General Emergency Medicine 04/10/24
--- OUTSIDE RECORDS SUMMARY | 2025-06-03 16:00 | XMS_ITS | Encounter Summary ---
[facility] Address [address] [place] [address] Care Team Providers Care Assistant Food Service Manager Name Role Phone Renato Hwang MD Primary Care Provider [phone] Encounter Details Date Type Department Care Team (Latest Contact Info) Description 05/26/2025 Travel Social History Tobacco Use Types Packs/Day Years [...] PM EDT documented as of this encounter Plan of Treatment Not on file documented as of this encounter Visit Diagnoses Not on filedocumented in this encounter Care Teams Assistant Food Service Manager Relationship Specialty Start Date End Date Renato Hwang MD [address] [place] [id number] PCP - General Emergency Medicine 04/10/24 documented as of this encounter
--- OUTSIDE RECORDS SUMMARY | 2025-06-03 16:00 | XMS_ITS | Clinical Summary ---
Author Organization [facility] Address [address] [place] [address] Care Team Providers Care Trackman Name Role Phone Cindy Chow MD Primary Care Provider [phone] Allergies Active Allergy Reactions Criticality Noted Date Comments Aspirin Anaphylaxis,Hives,Un known - Patient states they do not know rxn details High 09/04/2014 Cefaclor Hives,Unknown - Delphine ent states they do not know rxn details Medium 09/04/2014 Ofloxacin Itching,Hives,Unknow n - Patient states they do not know rxn details Medium 09/04/2014 Medications triamterene-hydr ochlorothiazide (Maxzide-25) 37.5-25 MG tablet 02/28/2023 Active simvastatin (Zocor) 20 MG tablet 03/04/2023 Active sertraline (Zoloft) 100 MG tablet 03/04/2023 Active Pyridoxine HCl (Vitamin B6) 100 MG tablet 02/20/2023 Active promethazine (Phenergan) 25 MG tablet 01/02/2023 Active Synthroid 150 MCG tablet 02/28/2023 Active HYDROcodone-acet aminophen (Rimforest) 7.5-325 MG tablet 02/23/2023 Active gabapentin (Neurontin) 300 MG capsule 02/23/2023 Active clonazePAM (KlonoPIN) 1 MG tablet 02/06/2023 Active Natural Vitamin D-3 125 MCG (5000 UT) tablet 02/28/2023 Ac tive baclofen (Lioresal) 10 MG tablet 02/28/2023 Active Eliquis 5 MG tablet 03/04/2023 Active amLODIPine (Norvasc) 2.5 MG tablet 03/04/2023 Active biotin 1000 MCG tablet Take 1,000 mcg by mouth 1 (one) time each day. Active Active Problems No known active problems Encounters Date Type Department Care Team Description 04/02/2025 Telephone [facility] [address] [place] [address] Delfina Sutherland MD 04/01/2025 4:43 PM EDT - 04/01/2025 8:09 PM EDT Emergency [facility] [address] [place] [address] Maryjane Tejada MD MS (multiple sclerosis) ([facility]) (Primary Dx); Numbness of right hand; Hx of multiple sclerosis ([facility]) Discharge Disposition: Home or Self Care 04/01/2025 Travel 03/28/2025 Orders Only External Location [address] [place] [address] Provider, External 03/28/2025 Orders Only External Location [address] [place] [address] Provider, External from Last 3 Months Immunizations Immunization Administration Dates Next Due Influenza, seasonal, injectable, preservative fr ee 09/06/2014 Family History Medical History Relation Name Comments Cardiac disorder Father Cardiac disorder Maternal Grandfather Cardiac disorder Maternal Grandmother Cardiac disorder Mother Cardiac disorder Paternal Grandfather Cardiac disorder Paternal Grandmother Relation Name Status Comments Father Maternal Grandfather Maternal Grandmother Mother Paternal Grandfather Paternal Grandmother Social History Tobacco Use Types Packs/Day Years Used Date Smoking Tobacco: Every Day Smokeless Tobacco: Never Tobacco Cessation:Ready to Q uit: Not Asked; Counseling Given: Not Answered Alcohol Use Standard Drinks/Week Comments No 0 (1 standard drink = 0.6 oz pur e alcohol) Comments Unknown Sex and Gender Information Value Date Recorded Sex Assigned at Not on file Legal Sex Female 7:51 PM EDT Gender Identity Not on file Sexual Orientation Not on file Last Filed Vital Signs Vital Sign Reading Time Taken Comments Blood Pressure 142/57 04/01/2025 7:58 PM EDT Pulse 81 04/01/2025 7:58 PM EDT Temperature 36.6 C (97.9 F) 04/01/2025 7:58 PM EDT Respiratory Rate 22 04/01/2025 7:58 PM EDT Oxygen Saturation 92% 04/01/2025 7:58 PM EDT Inhaled Oxygen Concentration - - Weight 61.7 kg (136 lb) 04/01/2025 4:23 PM EDT Height 170.2 cm (5' 7 ) 04/01/2025 4:23 PM EDT Body Mass Index 21.3 04/01/2025 4:23 PM EDT Plan of Treatment Health Maintenance Due Date Last Done Comments [facility]-Depression Screening 1962 [facility]-Hepatitis C Screening 1962 [facility]-/Child/Adol SDOH Screenings 1962 [facility]- SDOH Screenings 1980 [facility]-Adult SDOH Screenings 1980 [facility]-DTaP,Tdap,and Td Vaccines (1 - Tdap) 1981 [facility]-Pap Smear 1983 [facility]-Cervical Cancer Screening 1992 [facility]-HPV/Cotest 1992 CT Colonography 2007 Colonoscopy 2007 FIT 2007 FOBT 2007 Sigmoidoscopy 2007 [facility]-Breast Cancer Screening 2012 [facility]-Zoster Vaccines (1 of 2) 2012 [facility]-RSV Vaccine: 60+ Years or (1 - Risk 60-74 years 1-dose series) 2022 [id number]-00 Vaccine ( - season) 2025 08/15/2022, 08/22/2021, 02/01/2021, Additional history exists [facility]-Influenza Vaccine (#1) 05/31/202507/06, 08/15/2022, 09/06/2014, Additional history exists FIT-DNA 04/12/2027 04/12/2024 [facility]-Colorectal Cancer Screening 04/12/2027 [facility]-Pneumococcal Vaccine: 50+ Years Completed 07/06/2024, 08/05/2009 [facility]-HIV Screening Completed 04/01/2025 HPV Vaccines Aged Out No longer eligi ble based on patient's age to complete this topic [facility]-HIB Vaccines Aged Out No longer e ligible based on patient's age to complete this topic [facility]-Hepatitis A Vaccines Aged Out No longer eligible based on patient's age to complete this topic [facility]-IPV Vaccines Aged Out No longer e ligible based on patient's age to complete this topic [facility]-Rotavirus Vaccines Aged Out No lo nger eligible based on patient's age to complete this topic Procedures Procedure Name Priority Date/Time Associated Diagnosis Comments TROPONIN T, HIGH SENSITIVITY, 2 HOUR, PLASMA Timed 04/01/2025 7:03 PM EDT XR CHEST 1 VIEW STAT 04/01/2025 5:56 PM EDT ECG ADULT STAT 04/01/2025 5:33 PM EDT ED HIV 1/2 ANTIBODY/ANTIGEN SCREEN WITH REFLEX TO HIV I/II DIFFERENTIATION STAT 04/01/2025 5:00 PM EDT ED PROTOCOL HIV 1/2 ANTIBODY/ANTIGEN SCREEN W/REFLEX TO HIV 1/2 ANTIBODY DIFFERENTIATION STAT 04/01/2025 5:00 PM EDT TROPONIN T, HIGH SENSITIVITY, 0 HOUR, PLASMA, REFLEX TO 2 HOUR STAT 04/01/2025 5:00 PM EDT TEST QUALITATIVE PLASMA STAT 04/01/2025 5:00 PM EDT COMPREHENSIVE METABOLIC PANEL, PLASMA STAT 04/01/2025 5:00 PM EDT APTT STAT 04/01/2025 5:00 PM EDT ANTI XA LEVEL UNFRACTIONATED HEPARIN STAT 04/01/2025 5:00 PM EDT PROTHROMBIN TIME(PT) / INR STAT 04/01/2025 5:00 PM EDT CBC WITH AUTO DIFFERENTIAL STAT 04/01/2025 5:00 PM EDT POCT GLUCOSE METER UNSOLICITED RESULTS Routine 04/01/2025 4:58 PM EDT EXTRA TUBE LIGHT BLUE TOP Routine 04/01/2025 4:58 PM EDT EXTRA TUBES Routine 04/01/2025 4:[address] ANGIO NECK STAT 04/01/2025 4:[address] ANGIO HEAD STAT 04/01/2025 4:[address] HEAD WO IV CONTRAST STAT 4:51 PM EDT OXYGEN THERAPY STAT 04/01/2025 4:47 PM EDT OXYGEN THERAPY STAT 04/01/2025 4:[address] OUTSIDE IMAGES 03/28/2025 1:[address] OUTSIDE IMAGES 03/28/2025 1:2 9 PM EDT from Last 3 Months Results * (ABNORMAL) Troponin T, High Sensitivity, 2 Hour, Plasma (04/01/2025 7:03 PM EDT) [facility] Troponin T, High Sensitivity, 2 Hour 18(H) <14 ng/L 04/01/2025 7:24 PM EDT [facility] Troponin Delta 0 <10 ng/L 04/01/2025 7:24 PM EDT [facility] Troponin Delta Interpretation Not Significant 04/01/2025 7:24 PM EDT [facility] Comment:Not Significant. No acute change in troponin observed between the baseline and 2 hour samples. Blood Venous blood specimen / Unknown Venipuncture / Unknown 04/01/2025 7:03 PM EDT 04/01/2025 7:05 PM EDT [place] [facility] BLOOD ORDERABLES Final Resul t [facility] [address] [place] [address] * XR Chest 1 View (04/01/2025 5:56 PM EDT) Anatomical Region Laterality Modality Chest Digital Radiogra phy Impressions 04/01/2025 6:33 PM EDT Bibasilar opacities are likely atelectasis. No appreciable consolidation. CRITICAL RESULT: No. COMMUNICATION: Per this written report. Preliminary report signed by Lynda Bellamy MD on 04/01/2025 6:09 PM By electronically signing this report, I, the attending physician, attest that I have personally reviewed the images/data for the above examination(s) and agree with the final edited report. Drafted by Lynda Bellamy MD on 04/01/2025 6:08 PM Final report signed by Álvaro Townsend MD on 04/01/2025 6:33 PM Narrative 04/01/2025 6:33 PM EDT CLINICAL INDICATION: SOA, hypoxia TECHNIQUE: XR CHEST 1 VIEW COMPARISON: Chest radiograph 04/14/2015 FINDINGS: Stable cardiac silhouette and mediastinal contours. Bibasilar opacities are likely atelectasis. No pleural effusion or pneumothorax. No acute osseous findings. Procedure Note Álvaro Townsend MD - 04/01/2025 CLINICAL INDICATION: SOA, hypoxia TECHNIQUE: XR CHEST 1 VIEW COMPARISON: Chest radiograph 04/14/2015 FINDINGS: Stable cardiac silhouette and mediastinal contours. Bibasilar opacitiesare likely atelectasis. No pleural effusion or pneumothorax. No acuteosseous findings. IMPRESSION: Bibasilar opacities are likely atelectasis. No appreciableconsolidation. CRITICAL RESULT: No. COMMUNICATION: Per this written report. Preliminary report signed by Lynda Bellamy MD on 04/01/2025 6:09 PM By electronically signing this report, I, the attending physician, attestthat I have personally reviewed the images/data for the aboveexamination(s) and agree with the final edited report. Drafted by Lynda Bellamy MD on 04/01/2025 6:08 PM Final report signed by Álvaro Townsend MD on 04/01/2025 6:33 PM Maryjane Tejada MD IMG XR PROCEDURES Final Result * ECG Adult (04/01/2025 5:33 PM EDT) EKG DIAGNOSIS CLASS Abnormal MUSE ECG Ventricular Rate 68 BPM MUSE ECG Atrial Rate 68 BPM MUSE ECG NM Interval 160 ms MUSE ECG QRSD Interval 68 ms MUSE ECG QT Interval 410 ms MUSE ECG QTC Interval 435 ms MUSE ECG P Kelliher 28 degrees MUSE ECG R Kelliher 74 degrees MUSE ECG T Wave Kelliher 47 degrees MUSE ECG Diagnosis Poor data quality, interpretation may be adversely affected MUSE ECG Diagnosis Normal sinus rhythm MUSE ECG Diagnosis Nonspecific ST and T wave abnormality MUSE ECG Diagnosis Abnormal ECG MUSE ECG Diagnosis MUSE ECG Diagnosis Confirmed by Carlitos Temple ([id number]) on 04/02/2025 12:18:08 PM MUSE ECG 04/01/2025 5:33 PM EDT 04/02/2025 12:18 PM EDT [place] [facility] ORDERABLES Final Result MUSE ECG * ED HIV 1/2 Antibody/Antigen Screen w/Reflex to HIV 1/2 Differentiation (04/01/2025 5:00 PM EDT) Pathologist [facility] HIV 1 & 2 Antibody/Antigen Screen Non Reactive Non Reactive 04/01/2025 5:55 PM EDT [facility] Comment:Screening for HIV 1 & 2 antibodies, and P24 antigen is NONREACTIVE. No confirmatory testing is required. Blood Venous blood specimen / Unknown Venipuncture / Unknown 04/01/2025 5:00 PM EDT 04/01/2025 5:15 PM EDT [place] [facility] BLOOD ORDERABLES Final Resul t [facility] [address] [place] [address] * (ABNORMAL) Troponin now and 120 min (04/01/2025 5:00 PM EDT) Pathologist [facility] Troponin T, High Sensitivity, 0 Hour 18(H) <14 ng/L 04/01/2025 5:29 PM EDT [facility] Blood Venous blood specimen / Unknown Venipuncture / Unknown 04/01/2025 5:00 PM EDT 04/01/2025 5:03 PM EDT [place] [facility] BLOOD ORDERABLES Final Resul t Performing Organization Address [facility] Co de Phone Number [facility] [address] [place] [address] * APTT (PTT) (04/01/2025 5:00 PM EDT) aPTT 27 25 - 35 sec 04/01/2025 5:20 PM EDT [facility] Blood Venous blood specimen / Unknown Venipuncture / Unknown 04/01/2025 5:00 PM EDT 04/01/2025 5:03 PM EDT [place] [facility] BLOOD ORDERABLES Final Resul t Performing Organization Address [facility] Phone Number [facility] [address] [place] [address] * Prothrombin Time (04/01/2025 5:00 PM EDT) Prothrombin Time 13.6 12.0 - 14.3 sec 04/01/2025 5:19 PM EDT [facility] INR 1.1 0.9 - 1.1 04/01/2025 5:19 PM EDT [facility] Blood Venous blood specimen / Unknown Venipuncture / Unknown 04/01/2025 5:00 PM EDT 04/01/2025 5:03 PM EDT Narrative [facility] - 04/01/2025 5:19 PM EDT OPTIMAL INR RANGES FOR PATIENT ON ORAL ANTICOAGULANT THERAPY Prevention of venous thromboembolism INR 2.0 to 3.0 In patients with heart disease: Atrial fibrillation INR 2.0 to 3.0 Valvular heart disease INR 2.0 to 3.0 Tissue heart valves INR 2.0 to 3.0 Mechanical prosthetic valves INR 2.5 to 3.5 Prevention of recurrent NC INR 2.5 to 3.5 [place] [facility] BLOOD ORDERABLES Final Resul t Performing Organization Address [facility] Co de Phone Number [facility] [address] [place] [address] * (ABNORMAL) Anti Xa Level Unfractionated Heparin (04/01/2025 5:00 PM EDT) Anti Xa Level Unfractionated Heparin 1.08(HH) <1.00 IU/mL 04/01/2025 5:35 PM EDT [facility] Blood Venous blood specimen / Unknown Venipuncture / Unknown 04/01/2025 5:00 PM EDT 04/01/2025 5:03 PM EDT Narrative [facility] - 04/01/2025 5:35 PM EDT Therapeutic Range: UFH Full Dose and ACS/NC protocols*: 0.30 - 0.70 IU/mL UFH Low Dose protocol*: 0.25 - 0.50 IU/mL UFH prophylaxis: Not established [place] [facility] BLOOD ORDERABLES Final Resul t Performing Organization Address [facility] Co de Phone Number [facility] [address] [place] [address] * (ABNORMAL) CBC with Diff (04/01/2025 5:00 PM EDT) WBC Count 8.42 3.70 - 10.30 10*3/uL LAB HEMATOLOGY METHOD 04/01/2025 5:07 PM EDT [facility] RBC Count 4.19 3.90 - 5.20 10*6/uL LAB HEMATOLOGY METHOD 04/01/2025 5:07 PM EDT [facility] HGB 12.2 11.2 - 15.7 g/dL LAB HEMATOLOGY METHOD 04/01/2025 5:07 PM EDT [facility] HCT 37.9 34.0 - 45.0 % LAB HEMATOLOGY METHOD 04/01/2025 5:07 PM EDT [facility] Platelet Count 334 155 - 369 10*3/uL LAB HEMATOLOGY METHOD 04/01/2025 5:07 PM EDT [facility] MCV 91 79 - 98 fL LAB HEMATOLOGY METHOD 04/01/2025 5:07 PM EDT [facility] MCH 29.1 26.0 - 32.0 pg LAB HEMATOLOGY METHOD 04/01/2025 5:07 PM EDT [facility] MCHC 32.2 30.7 - 35.5 g/dL LAB HEMATOLOGY METHOD 04/01/2025 5:07 PM EDT [facility] RDW 15.6(H) 11.5 - 14.5 % LAB HEMATOLOGY METHOD 04/01/2025 5:07 PM EDT [facility] MPV 9.0 8.8 - 12.5 fL LAB HEMATOLOGY METHOD 04/01/2025 5:07 PM EDT [facility] nRBC 0.0 <=0.0 per 100 WBCs LAB HEMATOLOGY METHOD 04/01/2025 5:07 PM EDT [facility] Differential Type Automated LAB HEMATOLOGY METHOD 04/01/2025 5:07 PM EDT [facility] Neutrophils % 67 % LAB HEMATOLOGY METHOD 04/01/2025 5:07 PM EDT [facility] Lymphocytes % 22 % LAB HEMATOLOGY METHOD 04/01/2025 5:07 PM EDT [facility] Monocytes % 8 % LAB HEMATOLOGY METHOD 04/01/2025 5:07 PM EDT [facility] Eosinophils % 2 % LAB HEMATOLOGY METHOD 04/01/2025 5:07 PM EDT [facility] Basophils % 1 % LAB HEMATOLOGY METHOD 04/01/2025 5:07 PM EDT [facility] Immature Granulocytes % 0 % LAB HEMATOLOGY METHOD 04/01/2025 5:07 PM EDT [facility] Neutrophils Absolute 5.60 1.60 - 6.10 10*3/uL LAB HEMATOLOGY METHOD 04/01/2025 5:07 PM EDT [facility] Lymphocytes Absolute 1.83 1.20 - 3.90 10*3/uL LAB HEMATOLOGY METHOD 04/01/2025 5:07 PM EDT [facility] Monocytes Absolute 0.64 0.30 - 0.90 10*3/uL LAB HEMATOLOGY METHOD 04/01/2025 5:07 PM EDT [facility] Eosinophils Absolute 0.20 0.00 - 0.50 10*3/uL LAB HEMATOLOGY METHOD 04/01/2025 5:07 PM EDT [facility] Basophils Absolute 0.12(H) 0.00 - 0.10 10*3/uL LAB HEMATOLOGY METHOD 04/01/2025 5:07 PM EDT [facility] Immature Granulocytes Absolute 0.03 0.00 - 0.06 10*3/uL LAB HEMATOLOGY METHOD 04/01/2025 5:07 PM EDT [facility] Blood Venous blood specimen / Unknown Venipuncture / Unknown 04/01/2025 5:00 PM EDT 04/01/2025 5:03 PM EDT Narrative [facility] - 04/01/2025 5:07 PM EDT Therapeutic decision making should be based on absolute values, rather than percentages. [place] [facility] BLOOD ORDERABLES Final Resul t Performing Organization Address [facility]/ZIP Co de Phone Number [facility] [address] [place] [address] * Test Qualitative Plasma (04/01/2025 5:00 PM EDT) Test Negative Negative 04/01/2025 5:29 PM EDT [facility] Blood Venous blood specimen / Unknown Venipuncture / Unknown 04/01/2025 5:00 PM EDT 04/01/2025 5:03 PM EDT Narrative [facility] - 04/01/2025 5:29 PM EDT Reference Range: Males and non- females: Negative. [place] [facility] BLOOD ORDERABLES Final Resul t Performing Organization Address [facility]/ZIP Co de Phone Number [facility] [address] [place] [address] * (ABNORMAL) Comprehensive Metabolic Panel (04/01/2025 5:00 PM EDT) Glucose, Plasma 89 74 - 99 mg/dL 04/01/2025 5:29 PM EDT [facility] BUN, Plasma 20 8 - 23 mg/dL 04/01/2025 5:29 PM EDT [facility] Creatinine, Plasma 0.79 0.60 - 1.10 mg/dL 04/01/2025 5:29 PM EDT [facility] BUN/Creatinine Ratio 25 04/01/2025 5:29 PM EDT [facility] Sodium, Plasma 141 136 - 145 mmol/L 04/01/2025 5:29 PM EDT [facility] Potassium, Plasma 3.6 3.6 - 4.9 mmol/L 04/01/2025 5:29 PM EDT [facility] Chloride, Plasma 103 97 - 107 mmol/L 04/01/2025 5:29 PM EDT [facility] CO2, Plasma 27 22 - 29 mmol/L 04/01/2025 5:29 PM EDT [facility] Anion Gap 11 6 - 16 mmol/L 04/01/2025 5:29 PM EDT [facility] Total Calcium, Plasma 8.5(L) 8.9 - 10.2 mg/dL 04/01/2025 5:29 PM EDT [facility] Total Protein 6.1(L) 6.3 - 7.9 g/dL 04/01/2025 5:29 PM EDT [facility] Albumin, Plasma 3.4(L) 3.5 - 5.2 g/dL 04/01/2025 5:29 PM EDT [facility] AST, Plasma 18 10 - 35 U/L 04/01/2025 5:29 PM EDT [facility] ALT, Plasma 12 10 - 35 U/L 04/01/2025 5:29 PM EDT [facility] Alkaline Phosphatase, Plasma 156(H) 46 - 142 U/L 04/01/2025 5:29 PM EDT [facility] Total Bilirubin, Plasma 0.4 0.2 - 1.1 mg/dL 04/01/2025 5:29 PM EDT [facility] eGFRcr 84.2 mL/min/1.7 3m*2 04/01/2025 5:29 PM EDT [facility] Comment:Reported eGFRcr in m L/min/1.73m2 is based the CKD-EPI 2020 equation that does not use a race coefficient. Blood Venous blood specimen / Unknown Venipuncture / Unknown 04/01/2025 5:00 PM EDT 04/01/2025 5:03 PM EDT [facility] [place] [facility] BLOOD ORDERABLES Final Resul t Performing Organization Address City/[facility]/ZIP Co de Phone Number [facility] [address] [place] [address] * Light Blue Top (04/01/2025 4:58 PM EDT) Pathologist [facility] Extra Hold for add-ons 04/01/2025 8:01 PM EDT [facility] Comment:Auto resulted. Blood Venous blood specimen / Unknown 04/01/2025 4:58 PM EDT 04/01/2025 5:08 PM EDT [facility] [place] [facility] BLOOD ORDERABLES Final Resul t Performing Organization Address [facility] Co de Phone Number [facility] [address] [place] [address] * POCT glucose meter (04/01/2025 4:58 PM EDT) [facility] POCT Glucose 92 74 - 99 mg/dL 04/01/2025 5:36 PM EDT [facility] Comment:Accuracy of a glucos e result obtained from a capillary whole blood specimen relies upon adequate, non-compromised capillary blood flow. If the capillary glucose result is not consistent with the patient's clinical signs and symptoms, glucose testing should be repeated with either an arterial or venous sample on the glucometer or sent to the main labortory for testing. Comment 04/01/2025 5:36 PM EDT [facility] Locker Room Manager ID Dolores Khan 04/01/2025 5:36 PM EDT [facility] Device ID [id number] 04/01/2025 5:36 PM EDT [facility] Specimen Type POC Venous 04/01/2025 5:36 PM EDT [facility] Blood Venous blood specimen / Unknown 04/01/2025 4:58 PM EDT 04/01/2025 5:36 PM EDT us Maryjane Tejada MD LAB POINT OF CARE TE ST DOCKED DEVICE UNSOLICITED RESULTS Final Result Performing Organization Address City/[facility]/ZIP Co de Phone Number [facility] [address] [place] [address] * CT Angio Neck (04/01/2025 4:54 PM EDT) Anatomical Region Laterality Modality Carotid Artery Computed Tomogra phy Impressions 04/01/2025 5:06 PM EDT Neck CTA: No hemodynamically significant stenosis is present within the cervical carotid and vertebral systems. Head CTA: No hemodynamically significant intracranial arterial stenosis or aneurysm is present. CRITICAL RESULT: None. COMMUNICATION: Per this written report. Drafted by Ana Roach MD on 04/01/2025 5:00 PM Final report signed by Ana Roach MD on 04/01/2025 5:06 PM Narrative 04/01/2025 5:06 PM EDT CLINICAL INDICATION: Neuro deficit, acute, stroke suspected TECHNIQUE: Head CTA: Axial images were obtained through the head during contrast bolus injection and multiplanar MIP images were created. Multiphase CTA was performed. This study was analyzed with deep machine learning artificial intelligence for large vessel occlusion detection. Neck CTA: Axial images were obtained through the neck during bolus contrast injection and multiplanar reformatted and MIP images were created. 60 mL of Omnipaque 350 were administered intravenously. Total DLP (Dose-Length Product): 1939.85 mGy.cm Please note: The reported value represents the total of one or more individual components during the CT acquisition on this date and at this time, and as such, the same value may appear in more than one CT report depending on the interpreting/reporting physicians. COMPARISON: Head CT performed at the same time FINDINGS: Neck CTA: Diagnostic Quality: Adequate Aorta and Great Vessel Origins: Conventional branching pattern. Calcification in the aortic arch and origin of the great vessels without significant stenosis. Right Cervical Carotid System: There is mild calcific plaque with 0% stenosis at the bifurcation by NASCET criteria. There is no evidence of dissection or pseudoaneurysm in the right common and internal carotid arteries. Left Cervical Carotid System: There is mild calcific plaque with 0% stenosis at the bifurcation by NASCET criteria. There is no evidence of dissection or pseudoaneurysm in the right common and internal carotid arteries. Vertebral arteries: There is no significant stenosis of the vertebral arteries. No evidence of dissection or pseudoaneurysm. Other Findings: The visualized soft tissue of the neck are within normal limits. Visualized upper lungs are clear. Head CTA: Diagnostic Quality: Adequate Vertebrobasilar System: The intradural vertebral arteries are patent without significant stenosis. The basilar artery and its major branches are within normal limits. There is no aneurysm. Carotid Arteries: There is mild calcific atherosclerosis. No significant stenosis or occlusion. No aneurysm. [place] and Major Peripheral Branches: There is no significant stenosis or occlusion. There is no aneurysm. Procedure Note Ana Roach MD - 04/01/2025 CLINICAL INDICATION: Neuro deficit, acute, stroke suspected TECHNIQUE: Head CTA: Axial images were obtained through the head during contrastbolus injection and multiplanar MIP images were created. Multiphase CTAwas performed. This study was analyzed with deep machine learningartificial intelligence for large vessel occlusion detection. Neck CTA: Axial images were obtained through the neck during boluscontrast injection and multiplanar reformatted and MIP images werecreated. 60 mL of Omnipaque 350 were administered intravenously. Total DLP (Dose-Length Product): 1939.85 mGy.cm Please note: The reportedvalue represents the total of one or more individual components during theCT acquisition on this date and at this time, and as such, the same valuemay appear in more than one CT report depending on theinterpreting/reporting physicians. COMPARISON: Head CT performed at the same time FINDINGS: Neck CTA: Diagnostic Quality: Adequate Aorta and Great Vessel Origins: Conventional branching pattern.Calcification in the aortic arch and origin of the great vessels withoutsignificant stenosis. Right Cervical Carotid System: There is mild calcific plaque with 0%stenosis at the bifurcation by NASCET criteria. There is no evidence ofdissection or pseudoaneurysm in the right common and internal carotidarteries. Left Cervical Carotid System: There is mild calcific plaque with 0%stenosis at the bifurcation by NASCET criteria. There is no evidence ofdissection or pseudoaneurysm in the right common and internal carotidarteries. Vertebral arteries: There is no significant stenosis of the vertebralarteries. No evidence of dissection or pseudoaneurysm. Other Findings: The visualized soft tissue of the neck are within normallimits. Visualized upper lungs are clear. Head CTA: Diagnostic Quality: Adequate Vertebrobasilar System: The intradural vertebral arteries are patentwithout significant stenosis. The basilar artery and its major branchesare within normal limits. There is no aneurysm. Carotid Arteries: There is mild calcific atherosclerosis. No significantstenosis or occlusion. No aneurysm. [place] and Major Peripheral Branches: There is no significantstenosis or occlusion. There is no aneurysm. IMPRESSION: Neck CTA: No hemodynamically significant stenosis is present within the cervicalcarotid and vertebral systems. Head CTA: No hemodynamically significant intracranial arterial stenosis or aneurysmis present. CRITICAL RESULT: None. COMMUNICATION: Per this written report. Drafted by Ana Roach MD on 04/01/2025 5:00 PM Final report signed by Ana Roach MD on 04/01/2025 5:06 PM [facility] [place] PROCEDURES Final Result * CT Angio Head (04/01/2025 4:54 PM EDT) Anatomical Region Laterality Modality [place] Computed Tomogr aphy Impressions 04/01/2025 5:06 PM EDT Neck CTA: No hemodynamically significant stenosis is present within the cervical carotid and vertebral systems. Head CTA: No hemodynamically significant intracranial arterial stenosis or aneurysm is present. CRITICAL RESULT: None. COMMUNICATION: Per this written report. Drafted by Ana Roach MD on 04/01/2025 5:00 PM Final report signed by Ana Roach MD on 04/01/2025 5:06 PM Narrative 04/01/2025 5:06 PM EDT CLINICAL INDICATION: Neuro deficit, acute, stroke suspected TECHNIQUE: Head CTA: Axial images were obtained through the head during contrast bolus injection and multiplanar MIP images were created. Multiphase CTA was performed. This study was analyzed with deep machine learning artificial intelligence for large vessel occlusion detection. Neck CTA: Axial images were obtained through the neck during bolus contrast injection and multiplanar reformatted and MIP images were created. 60 mL of Omnipaque 350 were administered intravenously. Total DLP (Dose-Length Product): 1939.85 mGy.cm Please note: The reported value represents the total of one or more individual components during the CT acquisition on this date and at this time, and as such, the same value may appear in more than one CT report depending on the interpreting/reporting physicians. COMPARISON: Head CT performed at the same time FINDINGS: Neck CTA: Diagnostic Quality: Adequate Aorta and Great Vessel Origins: Conventional branching pattern. Calcification in the aortic arch and origin of the great vessels without significant stenosis. Right Cervical Carotid System: There is mild calcific plaque with 0% stenosis at the bifurcation by NASCET criteria. There is no evidence of dissection or pseudoaneurysm in the right common and internal carotid arteries. Left Cervical Carotid System: There is mild calcific plaque with 0% stenosis at the bifurcation by NASCET criteria. There is no evidence of dissection or pseudoaneurysm in the right common and internal carotid arteries. Vertebral arteries: There is no significant stenosis of the vertebral arteries. No evidence of dissection or pseudoaneurysm. Other Findings: The visualized soft tissue of the neck are within normal limits. Visualized upper lungs are clear. Head CTA: Diagnostic Quality: Adequate Vertebrobasilar System: The intradural vertebral arteries are patent without significant stenosis. The basilar artery and its major branches are within normal limits. There is no aneurysm. Carotid Arteries: There is mild calcific atherosclerosis. No significant stenosis or occlusion. No aneurysm. [place] and Major Peripheral Branches: There is no significant stenosis or occlusion. There is no aneurysm. Procedure Note Ana Roach MD - 04/01/2025 CLINICAL INDICATION: Neuro deficit, acute, stroke suspected TECHNIQUE: Head CTA: Axial images were obtained through the head during contrastbolus injection and multiplanar MIP images were created. Multiphase CTAwas performed. This study was analyzed with deep machine learningartificial intelligence for large vessel occlusion detection. Neck CTA: Axial images were obtained through the neck during boluscontrast injection and multiplanar reformatted and MIP images werecreated. 60 mL of Omnipaque 350 were administered intravenously. Total DLP (Dose-Length Product): 1939.85 mGy.cm Please note: The reportedvalue represents the total of one or more individual components during theCT acquisition on this date and at this time, and as such, the same valuemay appear in more than one CT report depending on theinterpreting/reporting physicians. COMPARISON: Head CT performed at the same time FINDINGS: Neck CTA: Diagnostic Quality: Adequate Aorta and Great Vessel Origins: Conventional branching pattern.Calcification in the aortic arch and origin of the great vessels withoutsignificant stenosis. Right Cervical Carotid System: There is mild calcific plaque with 0%stenosis at the bifurcation by NASCET criteria. There is no evidence ofdissection or pseudoaneurysm in the right common and internal carotidarteries. Left Cervical Carotid System: There is mild calcific plaque with 0%stenosis at the bifurcation by NASCET criteria. There is no evidence ofdissection or pseudoaneurysm in the right common and internal carotidarteries. Vertebral arteries: There is no significant stenosis of the vertebralarteries. No evidence of dissection or pseudoaneurysm. Other Findings: The visualized soft tissue of the neck are within normallimits. Visualized upper lungs are clear. Head CTA: Diagnostic Quality: Adequate Vertebrobasilar System: The intradural vertebral arteries are patentwithout significant stenosis. The basilar artery and its major branchesare within normal limits. There is no aneurysm. Carotid Arteries: There is mild calcific atherosclerosis. No significantstenosis or occlusion. No aneurysm. [place] and Major Peripheral Branches: There is no significantstenosis or occlusion. There is no aneurysm. IMPRESSION: Neck CTA: No hemodynamically significant stenosis is present within the cervicalcarotid and vertebral systems. Head CTA: No hemodynamically significant intracranial arterial stenosis or aneurysmis present. CRITICAL RESULT: None. COMMUNICATION: Per this written report. Drafted by Ana Roach MD on 04/01/2025 5:00 PM Final report signed by Ana Roach MD on 04/01/2025 5:06 PM [facility] PROCEDURES Final Result * CT Head wo IV contrast (04/01/2025 4:51 PM EDT) Anatomical Region Laterality Modality Head Computed Tomogra phy Impressions 04/01/2025 5:00 PM EDT No acute intracranial abnormality. Moderate chronic small vessel disease. CRITICAL RESULT: No. COMMUNICATION: Per this written report. Drafted by Ana Roach MD on 04/01/2025 4:58 PM Final report signed by Ana Roach MD on 04/01/2025 5:00 PM Narrative 04/01/2025 5:00 PM EDT CLINICAL INDICATION: Neuro deficit, acute, stroke suspected TECHNIQUE: Spiral axial CT images of the head were obtained without contrast administration. Total DLP (Dose-Length Product): 1939.85 mGy.cm. Please note: The reported value represents the total of one or more individual components during the CT acquisition on this date and at this time, and as such, the same value may appear in more than one CT report depending on the interpreting/reporting physicians. COMPARISON: Outside Head CT 03/28/2025 from [facility] Outside brain MRI 04/09/2023 from [facility] FINDINGS: Diagnostic Quality: Adequate. The ventricles and sulci are normal in size. Moderate chronic small vessel ischemic disease in the cerebral white matter. Calcification of the choroid plexus near the right temporal horn is incidental and unchanged. There is no acute large cortical infarct, intracranial hemorrhage or large mass on this noncontrast study. Soft Tissues: No significant soft tissue swelling is present. Skull: There are no calvarial destructive lesions or fractures. Sinuses and Mastoids: The visualized portions of the paranasal sinuses are clear. The mastoid air cells are clear. Procedure Note Ana Roach MD - 04/01/2025 CLINICAL INDICATION: Neuro deficit, acute, stroke suspected TECHNIQUE: Spiral axial CT images of the head were obtained without contrastadministration. Total DLP (Dose-Length Product): 1939.85 mGy.cm. Please note: The reportedvalue represents the total of one or more individual components during theCT acquisition on this date and at this time, and as such, the same valuemay appear in more than one CT report depending on theinterpreting/reporting physicians. COMPARISON: Outside Head CT 03/28/2025 from [facility] Outside brain MRI 04/09/2023 from [facility] FINDINGS: Diagnostic Quality: Adequate. The ventricles and sulci are normal in size. Moderate chronic small vesselischemic disease in the cerebral white matter. Calcification of thechoroid plexus near the right temporal horn is incidental and unchanged.There is no acute large cortical infarct, intracranial hemorrhage or largemass on this noncontrast study. Soft Tissues: No significant soft tissue swelling is present. Skull: There are no calvarial destructive lesions or fractures. Sinuses and Mastoids: The visualized portions of the paranasal sinuses areclear. The mastoid air cells are clear. IMPRESSION: No acute intracranial abnormality. Moderate chronic small vessel disease. CRITICAL RESULT: No. COMMUNICATION: Per this written report. Drafted by Ana Roach MD on 04/01/2025 4:58 PM Final report signed by Ana Roach MD on 04/01/2025 5:00 PM [place] [facility] [facility] PROCEDURES Final Result * CT OUTSIDE IMAGES (03/28/2025 1:31 PM EDT) Only the most recent of2 resultswithin the time period is included. Anatomical Region Laterality Modality Computed Tomogra phy 03/28/2025 1:31 PM EDT us External Provider IMG CT PROCEDURES Final Result from Last 3 Months Insurance [employer] Care Teams Trackman Relationship Specialty Start Date End Date Cindy Chow MD [address] [place] [address] [address] [place] [address] PCP - General 02/10/21
--- OUTSIDE RECORDS SUMMARY | 2025-06-03 16:00 | XMS_ITS | Encounter Summary ---
Author Organization [facility] Address [address] [place] [address] Care Team Providers Care Performance Test Engineer Name Role Phone Cindy Chow MD Primary Care Provider [phone] Encounter Details Date Type Department Care Team ([facility] st Contact Info) Description 04/02/2025 Telephone [facility] Emergency Department [address] [place] [address] Delfina Sutherland MD [address] [place] [address] Social History Tobacco Use Types Packs/Day Years Used Date Smoking Tobacco: Every Day Smokeless Tobacco: Never Alcohol Use Standard Drinks/Week Comments No 0 (1 standard drink = 0.6 oz pur e alcohol) Comments Unknown Sex and Gender Information Value Date Recorded Sex Assigned at Not on file Legal Sex Female 7:51 PM EDT Gender Identity Not on file Sexual Orientation Not on file documented as of this encounter Plan of Treatment Not on file documented as of this encounter Visit Diagnoses Not on filedocumented in this encounter Additional Health Concerns Assessment Noted Time A fall risk assessment has been complete d for the patient 03/11/2023 11:28 AM EDT A Body Mass Index follow-up plan has been documented for the patient 05/27/2023 4:58 PM EDT documented as of this encounter Care Teams Performance Test Engineer Relationship Specialty Start Date End Date Cindy Chow MD [address] [place] [address] [address] [place] [address] PCP - General 02/10/21 documented as of this encounter
--- OUTSIDE RECORDS SUMMARY | 2025-06-03 16:00 | XMS_ITS | Encounter Summary ---
Author Organization [facility] Address [address] [place] [address] Care Team Providers Care Towboat Captain Name Role Phone Cindy Chow MD Primary Care Provider [phone] Encounter Details Date Type Department Care Team ([facility] st Contact Info) Description 04/09/2023 Orders Only External Location [address] [place] [address] Provider, External Social History Tobacco Use Types Packs/Day Years [...] on file documented as of this encounter Procedures Procedure Name Priority Date/Time Associated Diagnosis Comments MR HEAD W AND WO IV CONTRAST 04/09/2023 3:03 PM EDT documented in this encounter Results * MR Head w and wo IV Contrast (04/09/2023 3:03 PM EDT) Anatomical Region Laterality Modality Head Magnetic Resonan ce 04/09/2023 3:03 PM EDT us External Provider IMG MRI PROCEDURES Final Resul t documented in this encounter Visit Diagnoses Not on filedocumented in this encounter Additional Health Concerns Assessment Noted Time A fall risk assessment has been complete d for the patient 03/11/2023 11:28 AM EDT A Body Mass Index follow-up plan has been documented for the patient 03/11/2023 12:11 PM EDT documented as of this encounter Care Teams Towboat Captain Relationship Specialty Start Date End Date Cindy Chow MD [address] [place] [address] [address] [place] [address] PCP - General 02/10/21 documented as of this encounter
[2025-06-03 16:22] LABS: Albumin Level 3.9 g/dl (3.5-5.0); Chloride 99 mmol/L (98-107); Potassium 3.2 mmoL/L (3.5-5.1); Sodium 138 mmol/L (136-145)
[2025-06-03 16:25] LABS: Alanine Aminotransferase 25 U/L (12-78); Albumin/Globulin Ratio 1.2 (1.1-1.8); Alkaline Phosphatase 98 U/L (38-126); Anion Gap 8.2 mEq/L (5-15); Aspartate Amino Transferase 53 U/L (14-36); Bilirubin,Total 0.4 mg/dl (0.2-1.3); Blood Urea Nitrogen 29 mg/dl (7-17); Carbon Dioxide 34 mmol/L (22.0-30.0); Creatinine Clearance Estimated 52 mL/min (50-200); Creatinine,Serum 1.10 mg/dl (0.52-1.04); Estimated Glomerular Filt Rate 50 ml/min (>60); GFR (African American) 61 ML/MIN (>60); Globulin 3.3 g/dL (1.3-3.2); Total Protein,Serum 7.2 g/dl (6.3-8.2)
[2025-06-03 16:26] LABS: Calcium 7.9 mg/dl (8.4-10.2); Glucose 163 mg/dl (74-100)
--- NOTE | 2025-06-03 16:38 | PC.NURSE ---
RESPIRATORY CARE NOTE NIF was perfromed on patient. NIF was -22.
[2025-06-03 16:39] LABS: Troponin I 0.03 ng/ml (0.00-0.034)
[2025-06-03] MEDS: SODIUM CHLORIDE 0.9% 10ML SYR (RAD ONLY) 10 ML IV (16:58)
[2025-06-03] MEDS: 0.9 % SODIUM CHLORIDE 50 ML VIAL IV (16:58)
[2025-06-03] MEDS: IOPAMIDOL-370 (76%);100ML BOTTLE 80 ML IV (16:58)
--- NOTE | 2025-06-03 17:33 | PC.NURSE ---
Called [facility] for possible transfer. Images have been power shared.
--- NOTE | 2025-06-03 17:35 | PC.NURSE ---
Dr. Joshi on the phone with now.
--- NOTE | 2025-06-03 17:53 | PC.NURSE ---
[facility] called for possible patient transfer. Images have been power shared.
[2025-06-03 17:58] LABS: Magnesium 1.7 mg/dl (1.6-2.3)
--- NOTE | 2025-06-03 18:07 | PC.NURSE ---
spoke with respiratory regarding vapotherm
[2025-06-03 18:41] LABS: NT Pro Brain Natriuretic Pep. 7330 pg/mL (0-125)
[2025-06-03] MEDS: CALCIUM GLUC IN NACL, ISO-OSM 2 GM/100 ML BAG IV (18:45)
[2025-06-03] MEDS: POTASSIUM CHLORIDE 20MEQ TAB 40 MEQ PO (18:45)
[2025-06-03 18:58] LABS: VBG HCO3 30.7 mmol/L (23-30); VBG PH 7.34 mmol/L (7.31-7.41); VBG PO2 56.9 mmol/L (28-40)
[2025-06-03 18:58] LABS: Adenovirus,PCR Not Detected (NotDetected); Chlamydophila Pneumoniae, PCR Not Detected (NotDetected); Coronavirus 19, PCR Not Detected (NotDetected); Coronovirus HKU1,PCR Not Detected (NotDetected); Influenza A, PCR Not Detected (NotDetected); Influenza AH1, 2009 Not Detected (NotDetected); Influenza AH1, PCR Not Detected (NotDetected); Influenza AH3,PCR Not Detected (NotDetected); Influenza B, PCR Not Detected (NotDetected); Mycoplasma Pneumoniae, PCR Not Detected (NotDetected); Parainfluenza 1, PCR Not Detected (NotDetected); Parainfluenza 2, PCR Not Detected (NotDetected); Parainfluenza 3, PCR Not Detected (NotDetected); Parainfluenza 4, PCR Not Detected (NotDetected)
[2025-06-03 19:01] LABS: Lactate Venous 3.5 mmol/L (0.4-2.0); VBG PCO2 58.0 mmol/L (35-51)
[2025-06-03] MEDS: METHYLPREDN SOD SUCC 1,000 MG in 0.9 % SODIUM CHLORIDE 250 ML 500 MG IV (19:01)
--- NOTE | 2025-06-03 19:02 | PC.NURSE ---
Mixed 1g of Solu-Medrol in a 250mL bag of Normal Saline and placed on a pump at a rate of 500mL/hr and started at 1902 hours.
[2025-06-03 19:22] LABS: Free T4 (Free Thyroxine) 2.44 ng/dl (0.78-2.19)
--- NOTE | 2025-06-03 19:23 | PC.NURSE ---
Resp at bedside
[2025-06-03 20:34] LABS: Thyroid Stimulating Hormone < 0.02 uIU/mL (0.465-4.68)
[2025-06-03 20:38] LABS: Troponin I 0.04 ng/ml (0.00-0.034)
[2025-06-03] MEDS: NICOTINE 21MG/24HR PATCH 21 MG TD (21:05)
--- NOTE | 2025-06-03 21:37 | PC.NURSE ---
Called [facility] for possible pt transfer
[2025-06-03 21:38] LABS: VBG HCO3 29.4 mmol/L (23-30); VBG PH 7.39 mmol/L (7.31-7.41); VBG PO2 75.8 mmol/L (28-40)
[2025-06-03 21:40] LABS: Lactate Venous 3.5 mmol/L (0.4-2.0); VBG PCO2 50.2 mmol/L (35-51)
[2025-06-03 21:58] LABS: Troponin I 0.05 ng/ml (0.00-0.034)
[2025-06-03 22:48] LABS: Reflex Lactic Add Lactic Reflex
--- NOTE | 2025-06-03 22:52 | PC.NURSE ---
Pt given socks upon request, NAD noted at this time. Updated on POC at this time, wishing to speak with ED provider, made aware that I would relay the message
[2025-06-03 23:11] LABS: Lactic Acid Follow Up (RFLX 1) 3.5 mmol/L (0.7-2.1)
--- NOTE | 2025-06-03 23:22 | PC.NURSE ---
Report called to CARLOS Wong in ICU
--- NOTE | 2025-06-03 23:56 | PC.NURSE ---
pt arrived to floor from ed via stretcher at 2340.
[2025-06-04] VITALS (24 sets, daily range): BP systolic 103–142; BP diastolic 57–88; PULSE 54–93; RESP 14–29; TEMP 36.4–37.5; O2SAT 88–97; BMI 21.4
--- NOTE | 2025-06-04 00:23 | P.HP_ITS ---
<Statement entered by Aren Candelaria MD - 06/05/25 17:17> Personally evaluated the patient and agree with plan of care as outlined by the TELLER MANAGER. History of Present Illness *Admission Date: 06/03/25 *Reason for visit:: Shortness of breath *History of present illness: Ms. Mueller is a 65-year-old female who presents to the ER with complaint of shortness of breath. Patient has a past medical history of multiple sclerosis, DVT, and recent femur fracture. Patient states she started to feel more short of breath yesterday. She states she has taken 2 rounds of azithromycin. She reports productive cough as well as nausea. She states the nausea that is probably from her current medications. She reports she is a 1.5 pack a day smoker. She denies alcohol recreational drug use. No home O2 use. Patient denies fever/chills, congestion, runny nose, chest pain, abdominal pain, vomiting, diarrhea, constipation, headache, lightheadedness, dizziness, or syncope. Hospitalist service contacted for admission due to patient being waitlisted at [facility] and for further monitoring of elevated troponin and respiratory failure. [facility] Disclaimer: The information contained in this section may have been updated after the patient was seen, as this information can be updated by other users. Social History (Updated 06/03/25 @ 22:26 by Philip Joshi MD) Smoking Status: Current every day smoker alcohol intake: never current occupational status: other Travel in the last 8 weeks?: None Have you lived/traveled outside US in past 30 days?: No Contact w/someone who lives/traveled outside US past 30 days?: No Exposure to someone with infectious disease in past 14 days?: No Do you have a fever (greater than 100.4 F or 38 C)?: No Have you tested positive for COVID-19?: No Exposed to someone with COVID-19 in past 14 days?: No Do you have a sore throat?: No Do you have a cough?: Yes Do you have any weakness?: Yes Do you have any diarrhea?: No Are you experiencing any unusual bleeding?: No Do you have any muscle aches/pain?: No Do you have any abdominal pain?: No Are you experiencing loss of taste or smell?: No Other Medical History Have you received the Flu Vaccine for this season: Yes Have you received the Pneumonia Vaccine: Yes Review of Systems Constitutional Constitutional: Denies chills, Denies fever(s) and Denies headache(s) ENT Ears, Nose, Mouth, and Throat: Denies headache(s) and Denies vertigo *Cardiovascular Cardiovascular: Denies chest pain, Reports dyspnea, Denies lightheadedness and Denies syncope *Respiratory Respiratory: Reports cough and Reports dyspnea *Gastrointestinal Gastrointestinal: Denies abdominal pain, Denies constipation, Denies diarrhea, Reports nausea and Denies vomiting *Genitourinary Genitourinary: Reports system reviewed and no additional complaints, except as documented *Musculoskeletal Musculoskeletal: Reports system reviewed and no additional complaints, except as documented *Neurologic Neurologic: Denies headache(s), Denies syncope and Denies vertigo Meds Home Medications and Allergies New Prescriptions to Start Prescriptions: Allergies Allergy/AdvReac Type Severity Reaction Status Date / Time aspirin Allergy Hives Verified 06/03/25 15:48 cefaclor (From Ceclor) Allergy Rash Verified 06/03/25 15:48 floxacillin Allergy Rash Verified 06/03/25 15:48 Exam Data for Last 24 hours Vital signs and Labs for Last 24 Hours: Temp Pulse Resp BP Pulse Ox O2 Del Method O2 Flow Rate 99.5 F 89 29 H 106/66 L 91 L Vapotherm 40 06/04/25 00:00 06/04/25 00:01 06/04/25 00:01 06/04/25 00:01 06/04/25 00:01 06/03/25 23:23 06/03/25 23:23 FiO2 45 06/03/25 19:51 Laboratory Results - last 24 hr 06/03/25 15:37: WBC 11.2 H, RBC 5.17, Hgb 14.3, Hct 44.3, MCV 85.7, MCH 27.7, MCHC 32.3, RDW 17.0, Plt Count 291, MPV 9.5, Neut % (Auto) 77.8, Lymph % (Auto) 12.8, [place]vier % (Auto) 7.5, Eos % (Auto) 0.1, Baso % (Auto) 1.3, Neut # (Auto) 8.7 H, Lymph # (Auto) 1.4, [place]vier # (Auto) 0.8, Eos # (Auto) 0.0, Baso # (Auto) 0.1, VBG pH 7.37, VBG pCO2 49.1, VBG pO2 41.8 H, VBG HCO3 27.9, VBG Total CO2 29.4 H, VBG O2 Saturation 76.6 H, VBG Base Excess 2.7 H, VBG Lactic Acid 1.9, Sodium 138, Potassium 3.2 L, Chloride 99, Carbon Dioxide 34 H, Anion Gap 8.2, BUN 29 H, Creatinine 1.10 H, Estimated Creat Clear 52, Estimated GFR 50 L, Est GFR ( Amer) 61, Glucose 163 H, Calcium 7.9 L, Magnesium 1.7, Total Bilirubin 0.4, AST 53 H, ALT 25, Alkaline Phosphatase 98, Troponin I 0.03, NT-Pro-B Natriuret Pep 7330 H, Total Protein 7.2, Albumin 3.9, Globulin 3.3 H, Albumin/Globulin Ratio 1.2, TSH < 0.02 L, Free T4 2.44 H 06/03/25 18:50: VBG pH 7.34, VBG pCO2 58.0 H, VBG pO2 56.9 H, VBG HCO3 30.7 H, VBG Total CO2 32.4 H, VBG O2 Saturation 88.1 H, VBG Base Excess 4.9 H, VBG Lactic Acid 3.5 H 06/03/25 18:57: Chlamy pneumoniae PCR Not detected, Adenovirus (PCR) Not detected, B. pertussis DNA (PCR) Not detected, Coronavirus OC43 (PCR) Not detected, Coronavirus HKU1 (PCR) Not detected, Coronavirus 229E (PCR) Not detected, SARS-CoV-2 (PCR) Not detected, Coronavirus NL63 (PCR) Not detected, Human Metapneumovir PCR Not detected, Influenza A (H1) PCR Not detected, Influ A (H1N1/09) PCR Not detected, Influenza A (H3) PCR Not detected, Influenza Type A (PCR) Not detected, Influenza Type B (PCR) Not detected, M. pneumoniae (PCR) Not detected, Parainfluenza 1 (PCR) Not detected, Parainfluenza 2 (PCR) Not detected, Parainfluenza 3 (PCR) Not detected, Parainfluenza 4 (PCR) Not detected, RSV (PCR) Not detected, Entero/Rhino (PCR) Detected A 06/03/25 19:10: Troponin I 0.04 H 06/03/25 21:31: VBG pH 7.39, VBG pCO2 50.2, VBG pO2 75.8 H, VBG HCO3 29.4, VBG Total CO2 30.9 H, VBG O2 Saturation 94.7 H, VBG Base Excess 4.3 H, VBG Lactic Acid 3.5 H, Troponin I 0.05 H 06/03/25 22:56: Lactate 3.5 H I & O for Last 24 hours: Intake & Output 06/01/25 06/02/25 06/03/25 06/04/25 23:59 23:59 23:59 23:59 Intake Total 1150.000 / 1150.000 Balance 1150.000 / 1150.000 Weight 63.503 kg *Routine HEENT Exam Head: Present normocephalic and atraumatic Eye: Present EOMI and PERRL ENT: Present mucous membranes dry *Routine Neck Exam Neck: Present supple and full ROM *Routine Respiratory Exam Respiratory: Present rhonchi (bilateral bases) and symmetric chest movement; Absent accessory muscle use *Routine Cardiovascular Exam Cardiovascular: Present RRR, Normal S1 and Normal S2 *Routine Abdominal Exam Abdominal: Present soft and normoactive bowel sounds; Absent tenderness *Routine Rectal Exam Rectal:: deferred *Routine Genitalia Exam Genitalia:: deferred *Routine Extremities Exam Extremities: Present full ROM (Upper extremities, decreased range of motion noted to lower extremities), pulses intact and normal capillary refill; Absent edema *Routine Skin Exam Skin: Present intact, dry and warm *Routine Neurological Exam Neurological: Present alert, oriented X3 and CN II-XII intact Assessment and Plan *Assessment and plan (1) Hypoxic respiratory failure: Status: Acute Category: Medical Code(s): J96.91 - Respiratory failure, unspecified with hypoxia Plan: Vapotherm 40 L at 45% Procalcitonin pending Hold off on antibiotics at this time (2) Multiple sclerosis: Status: Acute Category: Medical Code(s): G35 - Multiple sclerosis Plan: Patient received 1000 mg of methylprednisolone in the ER Continue 1000 mg methylprednisolone daily for acute exacerbation of MS Transfer to [facility] when they have a bed available (3) Elevated troponin: Status: Acute Category: Medical Code(s): R79.89 - Other specified abnormal findings of blood chemistry Plan: Troponin on admission 0.05 Trend troponins Patient denies chest pain Cardiac monitoring Elevated troponin could be due to demand ischemia (4) Hypokalemia: Status: Acute Category: Medical Code(s): E87.6 - Hypokalemia Plan: Potassium on admission 3.2 Patient received 40 mEq of potassium chloride in the ER Monitor BMP daily (5) Hypocalcemia: Status: Acute Category: Medical Code(s): E83.51 - Hypocalcemia Plan: Calcium on admission 7.9 Patient received 2 g calcium gluconate in the ER Monitor BMP daily (6) Nicotine dependence: Status: Acute Category: Medical Code(s): F17.200 - Nicotine dependence, unspecified, uncomplicated Plan: Nicotine patch daily Encourage smoking cessation Plan Spoke to Giovany, ER provider, decision to admit based on patient's need for acute respiratory support and treatment of acute exacerbation of MS. Patient will be transferred to [facility] when bed is available.
[2025-06-04 00:57] LABS: Reflex Lactic (2 hrs) Add Lactic Reflex
[2025-06-04] MEDS: NICOTINE 21MG/24HR PATCH 21 MG TD ×2 (00:58→23:38)
[2025-06-04] MEDS: GABAPENTIN 300MG CAPSULE 300 MG PO ×4 (01:51→20:57)
[2025-06-04] MEDS: BACLOFEN 10MG TABLET 10 MG PO ×5 (01:57→20:57)
[2025-06-04 02:14] LABS: Lactic Acid Follow up (RFLX 2) 1.4 mmol/L (0.7-2.1)
[2025-06-04 02:26] LABS: Troponin I 0.09 ng/ml (0.00-0.034)
[2025-06-04 02:59] LABS: Procalcitonin 0.208 ng/mL (0.0-2.0)
--- NOTE | 2025-06-04 03:05 | PC.NURSE ---
Husam in the ED called at approximately 0220 stating [facility] contacted them and wanted pt to be transported to their ED. [facility] ED was contacted and report was given at 0245. I went in to let pt know she was being transferred to [facility] and pt said she did not want to be transferred to [facility] because she was feeling better. Skye chandler came over and discussed with pt the reason for transport to [facility] and pt still refused. office machine repair shop supervisor was notified and per assistant warehouse manager we cannot force pt to be transferred.
--- NOTE | 2025-06-04 03:11 | PC.NURSE ---
Report was called to ubaldo in the ED at [facility] around 024 and then I just spoke with [facility] ed at [phone] to let them know pt refused transport at this time
[2025-06-04 06:23] LABS: Anion Gap 12.6 mEq/L (5-15); Blood Urea Nitrogen 25 mg/dl (7-17); Calcium 9.1 mg/dl (8.4-10.2); Carbon Dioxide 29 mmol/L (22.0-30.0); Chloride 101 mmol/L (98-107); Creatinine Clearance Estimated 57 mL/min (50-200); Creatinine,Serum 1.00 mg/dl (0.52-1.04); Estimated Glomerular Filt Rate 56 ml/min (>60); GFR (African American) 68 ML/MIN (>60); Glucose 158 mg/dl (74-100); Potassium 3.6 mmoL/L (3.5-5.1); Sodium 139 mmol/L (136-145)
[2025-06-04] MEDS: LEVOTHYROXINE 150MCG (0.15MG)TAB 150 MCG PO (06:24)
[2025-06-04 06:30] LABS: Troponin I 0.11 ng/ml (0.00-0.034)
[2025-06-04 06:35] LABS: Hematocrit 41.3 % (37.0-47.0); Hemoglobin 13.5 g/dL (12.2-16.2); Immature Granulocytes % 0.7 %; Mean Corpuscular HGB Conc 32.7 g/dL (31.8-35.4); Mean Corpuscular Hemoglobin 27.6 pg (27.0-31.2); Mean Corpuscular Volume 84.3 fl (81-99); Nucleated Red Blood Cells % 0 %; Platelet Count 268 K/mm3 (142-424); Red Blood Count 4.90 M/mm3 (4.20-5.40); Red Cell Distribution Width-SD 51.9 fL; White Blood Count 14.4 K/mm3 (4.8-10.8)
--- NOTE | 2025-06-04 08:31 | CA_ITS ---
APPROVED REPORT EXAM: Comprehensive 2D, Doppler, and color-flow Echocardiogram Component Inspector: Mayte Tapia, RT(R) Ht: 5 ft 7 in Wt: 137lbs BSA: 1.72 BP: 106/66 mmHg Indications: resp failure, currently on vapotherm, smoker, recent femur fracture, pulmonary hypertension, multiple sclerosis. Patient was supine on back due to shoulder injury. 2D Dimensions Left Atrium 2.83 cm F: 2.7 - 3.8 EF AP4 64.20 % LVOT 2.01 cm (M/F) 1.5-2.5 GL Strain -13.2 % M-Mode Dimensions RVDd 2.71 cm (0.9-2.6) LVDd 4.38 cm (3.5-5.7) Ao Diam 2.39 cm (2.0-3.7) LVDs 3.45 cm (3.5-5.7) IVSd 0.84 cm (0.6-1.1) PWd 0.77 cm (0.6-1.1) EF (Teich) 43.40% FS 21.20% EDV (Teich) 86.80 mL ESV (Teich) 49.10 mL LV Diastology E Decel Time 150 (160-240 msec) E/A Ratio 1.1 MED E' 6.8 (>= 7 cm/sec) E'/MED E' Ratio 11.07 (<= 14) LAT E' 7.1 (>= 10 cm/sec) E/LAT E' Ratio 10.61 (<= 14) Aortic Valve LVOT Max 91.0 (70-110 cm/s) ROXANNA Index 0.85 cm2/m2 LVOT VTI 19.57 cm AoV Peak Jerry. 215.0 (50-130 cm/s) AI PHT 413.00 ms AO Mean GR. 9.20 (<5 mmHg) AO VTI 42.4 (18-25 cm) ROXANNA (VTI) 1.46 (2.5-4.5 cm2) Mitral Valve MV E Max Jerry. 75.0 (40-130 cm/s) MV A Velocity 69.0 (40-130 cm/s) E/A Ratio 1.09 MV Decel. Time 150 (160-240 ms) Tricuspid Valve TR P. Velocity 362.00 cm/s RAP Estimate 10.00 mmHg RVSP 62.60 mmHg Left Ventricle The left ventricle is normal size. Left ventricular systolic function is normal. The left ventricular ejection fraction is within the normal range. There is increased left ventricular wall thickness. Septal flattening is present, suggestive of right-sided pressure/volume overload. Grade 2 diastolic dysfunction is present. LVEF is 55% Right Ventricle The right ventricle is moderately dilated. The right ventricular systolic function is moderately reduced. Atria The left atrium is mildly dilated. The right atrium size is moderately dilated. There is no color Doppler evidence of interatrial shunt. Aortic Valve The aortic valve is mildly thickened. Mild aortic stenosis is present. ROXANNA by continuity equation is 1.7 cm2. Peak velocity 2.8 m/s. Mean AV gradient 10 mmHg. Max AV gradient 18 mmHg. Mild to moderate aortic regurgitation is present. Mitral Valve The mitral valve is normal in structure. No evidence of mitral valve stenosis. Mild mitral regurgitation is present. Tricuspid Valve The tricuspid valve leaflets are thin and pliable. Mild to moderate tricuspid regurgitation. RVSP is 45-50 mmHg. Pulmonic Valve The pulmonary valve is grossly normal in structure. Trace pulmonic valve regurgitation is present. Great Vessels The aortic root is normal in size. IVC is normal in size and collapses >50% with inspiration. Pericardium There is no pericardial effusion. Other Information Study Quality: Technically Difficult Conclusion Technically difficult study. Normal LV systolic function. Septal flattening is present, suggestive of right-sided pressure/volume overload. Moderate RV dilation with moderate reduction in RV function. Biatrial dilation. Mild (ROXANNA by continuity equation is 1.7 cm2. Peak velocity 2.8 m/s. Mean AV gradient 10 mmHg. Max AV gradient 18 mmHg). Mild to moderate AI, mild MR. Mild to moderate TR. Elevated RVSP 45-50 mmHg. Electronically signed by : Donna Dixon MD 06/04/2025 17:39:38
[2025-06-04 08:49] LABS: C-Reactive Protein 41.9 mg/L (0-4)
--- NOTE | 2025-06-04 08:50 | HMH.PHAINT1 ---
Pharmacy Intervention Comments: Home medication list verified using list from outpatient pharmacy
[2025-06-04] MEDS: CHOLECALCIFEROL 1,000 UNITS (25MCG) TABLET 125 MCG PO (09:43)
[2025-06-04] MEDS: FLUTICASONE PROP 50MCG NASAL SPRAY 16GM 1 SPRAY NS (09:44)
[2025-06-04] MEDS: PROPRANOLOL 20MG TAB 10 MG PO ×2 (09:45→13:51)
[2025-06-04] MEDS: SERTRALINE 100MG TABLET 100 MG PO (09:45)
[2025-06-04] MEDS: FUROSEMIDE 20MG TABLET 20 MG PO (09:45)
--- NOTE | 2025-06-04 09:47 | EXP.CARD.CON ---
History of Present Illness History of Present Illness Consult date: 06/04/25 Chief complaint: Shortness of breath History of present illness: 65-year-old white female without known cardiovascular disease admitted to the emergency room for acute hypoxic respiratory failure secondary to viral pneumonia in the setting of a mass. We are consulted for elevated troponin. Ms. Mueller has a history of MS for 20 to 30 years with which is relapsing remitting variant. She has had several hospitalizations in the past but never for respiratory failure. Typically resolves with outpatient steroids. She has a lifelong smoker, 1.5 packs/day. Recently presented to cardiology in [place] for preoperative evaluation for right shoulder surgery. She states she did not have any new testing this year but had stress test in the past which was unremarkable. Denies prior heart cath. States she was cleared for the surgery but in the interim tripped and fell over a charging cable at home and had complicated fracture of her left femur requiring surgical repair so her shoulder surgery has been put on hold. She does also have a history of DVT right lower extremity in 2013 and remains on low-dose Eliquis for this. Patient states for the past several weeks she has had productive cough and shortness of breath. Has been on 2 different rounds of antibiotics but states her symptoms are not improving. Yesterday and today before felt very weak with little energy to care for herself. A neighbor came over and checked her oxygen level which was reportedly 61%. She has never been on inhalers or oxygen previously. She presented to the emergency room and was soon to found to have rhinovirus and hypoxic respiratory failure requiring Vapotherm. Original plan was to transfer to higher level of care given the comorbidity of MS but due to divert situation and logistics she remains here at this time. We are consulted because she had a serial rise in her troponin 0.04, 0.05, 0.09, 0.11. proBNP was 7330, CRP 41, lactate 3.5. CTA was negative for PE but she did have an incidental right adrenal adenoma 4.3 x 3.0. EKG shows sinus rhythm [address] and T wave changes, no ST elevation. Home meds include Eliquis, pravastatin, propranolol. Patient denies any anginal symptoms at this time. [facility] Disclaimer: The information contained in this section may have been updated after the patient was seen, as this information can be updated by other users. Medical History Hypercholesteremia Hypercholesteremia Hypothyroidism Multiple sclerosis Surgical History H/O tubal ligation Hx of tonsillectomy Social History Smoking Status: Current every day smoker alcohol intake: never current occupational status: other Travel in the last 8 weeks?: None Have you lived/traveled outside US in past 30 days?: No Contact w/someone who lives/traveled outside US past 30 days?: No Exposure to someone with infectious disease in past 14 days?: No Do you have a fever (greater than 100.4 F or 38 C)?: No Have you tested positive for COVID-19?: No Exposed to someone with COVID-19 in past 14 days?: No Do you have a sore throat?: No Do you have a cough?: Yes Do you have any weakness?: Yes Do you have any diarrhea?: No Are you experiencing any unusual bleeding?: No Do you have any muscle aches/pain?: No Do you have any abdominal pain?: No Are you experiencing loss of taste or smell?: No Review of Systems Constitutional Constitutional: Reports fatigue, Denies fever(s), Denies headache(s) and Reports lethargy Eyes Eyes: Denies loss of vision ENT Ears, Nose, Mouth, and Throat: Denies headache(s) and Denies vertigo *Cardiovascular Cardiovascular: Reports dyspnea and Denies syncope *Respiratory Respiratory: Reports cough and Reports dyspnea *Gastrointestinal Gastrointestinal: Denies change in stool character, Denies nausea and Denies vomiting *Musculoskeletal Musculoskeletal: Denies muscle weakness Integumentary/Breasts Skin/Breast: Denies changing lesions *Neurologic Neurologic: Denies headache(s), Denies loss of vision, Denies syncope and Denies vertigo Endocrine Endocrine: Reports fatigue Exam Data for Last 24 hours Vital signs and Labs for Last 24 Hours: Temp Pulse Resp BP Pulse Ox O2 Del Method O2 Flow Rate 97.6 F 64 18 119/68 91 L Vapotherm 40 06/04/25 08:00 06/04/25 09:00 06/04/25 09:00 06/04/25 09:00 06/04/25 09:00 06/04/25 09:00 06/04/25 09:00 FiO2 45 06/04/25 09:00 Laboratory Results - last 24 hr 06/03/25 15:37: WBC 11.2 H, RBC 5.17, Hgb 14.3, Hct 44.3, MCV 85.7, MCH 27.7, MCHC 32.3, RDW 17.0, Plt Count 291, MPV 9.5, Neut % (Auto) 77.8, Lymph % (Auto) 12.8, Sheridan % (Auto) 7.5, Eos % (Auto) 0.1, Baso % (Auto) 1.3, Neut # (Auto) 8.7 H, Lymph # (Auto) 1.4, Sheridan # (Auto) 0.8, Eos # (Auto) 0.0, Baso # (Auto) 0.1, VBG pH 7.37, VBG pCO2 49.1, VBG pO2 41.8 H, VBG HCO3 27.9, VBG Total CO2 29.4 H, VBG O2 Saturation 76.6 H, VBG Base Excess 2.7 H, VBG Lactic Acid 1.9, Sodium 138, Potassium 3.2 L, Chloride 99, Carbon Dioxide 34 H, Anion Gap 8.2, BUN 29 H, Creatinine 1.10 H, Estimated Creat Clear 52, Estimated GFR 50 L, Est GFR ( Amer) 61, Glucose 163 H, Calcium 7.9 L, Magnesium 1.7, Total Bilirubin 0.4, AST 53 H, ALT 25, Alkaline Phosphatase 98, Troponin I 0.03, NT-Pro-B Natriuret Pep 7330 H, Total Protein 7.2, Albumin 3.9, Globulin 3.3 H, Albumin/Globulin Ratio 1.2, TSH < 0.02 L, Free T4 2.44 H 06/03/25 18:50: VBG pH 7.34, VBG pCO2 58.0 H, VBG pO2 56.9 H, VBG HCO3 30.7 H, VBG Total CO2 32.4 H, VBG O2 Saturation 88.1 H, VBG Base Excess 4.9 H, VBG Lactic Acid 3.5 H 06/03/25 18:57: Chlamy pneumoniae PCR Not detected, Adenovirus (PCR) Not detected, B. pertussis DNA (PCR) Not detected, Coronavirus OC43 (PCR) Not detected, Coronavirus HKU1 (PCR) Not detected, Coronavirus 229E (PCR) Not detected, SARS-CoV-2 (PCR) Not detected, Coronavirus NL63 (PCR) Not detected, Human Metapneumovir PCR Not detected, Influenza A (H1) PCR Not detected, Influ A (H1N1/09) PCR Not detected, Influenza A (H3) PCR Not detected, Influenza Type A (PCR) Not detected, Influenza Type B (PCR) Not detected, M. pneumoniae (PCR) Not detected, Parainfluenza 1 (PCR) Not detected, Parainfluenza 2 (PCR) Not detected, Parainfluenza 3 (PCR) Not detected, Parainfluenza 4 (PCR) Not detected, RSV (PCR) Not detected, Entero/Rhino (PCR) Detected A 06/03/25 19:10: Troponin I 0.04 H 06/03/25 21:31: VBG pH 7.39, VBG pCO2 50.2, VBG pO2 75.8 H, VBG HCO3 29.4, VBG Total CO2 30.9 H, VBG O2 Saturation 94.7 H, VBG Base Excess 4.3 H, VBG Lactic Acid 3.5 H, Troponin I 0.05 H 06/03/25 22:56: Lactate 3.5 H 06/04/25 00:35: Procalcitonin 0.208 06/04/25 01:42: Lactate 1.4, Troponin I 0.09 H 06/04/25 05:04: C-Reactive Protein 41.9 H 06/04/25 05:06: WBC 14.4 H D, RBC 4.90, Hgb 13.5, Hct 41.3, MCV 84.3, MCH 27.6, MCHC 32.7, RDW 16.7, Plt Count 268, MPV 10.1, Neut % (Auto) 92.3 H, Lymph % (Auto) 5.6 L, Sheridan % (Auto) 1.2 L, Eos % (Auto) 0.0 L, Baso % (Auto) 0.2, Neut # (Auto) 13.3 H, Lymph # (Auto) 0.8, Sheridan # (Auto) 0.2, Eos # (Auto) 0.0, Baso # (Auto) 0.0, Sodium 139, Potassium 3.6, Chloride 101, Carbon Dioxide 29, Anion Gap 12.6, BUN 25 H, Creatinine 1.00, Estimated Creat Clear 57, Estimated GFR 56 L, Est GFR ( Amer) 68, Glucose 158 H, Calcium 9.1, Troponin I 0.11 H I & O for Last 24 hours: Intake & Output 06/01/25 06/02/25 06/03/25 06/04/25 23:59 23:59 23:59 23:59 Intake Total 1150.000 / 1372.000 564 / 564 Balance 1150.000 / 1372.000 564 / 564 Weight 140 lb 137 lb 2.04 oz Constitutional Constitutional: no acute distress and cooperative *Routine HEENT Exam Eye: Present PERRL *Routine Respiratory Exam Respiratory: Present CTA bilaterally; Absent accessory muscle use, wheezes or crackles Comments: On Vapotherm *Routine Cardiovascular Exam Cardiovascular: Present RRR, Normal S1 and Normal S2; Absent murmur, gallop or rubs *Routine Abdominal Exam Abdominal: Present soft; Absent tenderness *Routine Extremities Exam Extremities: Present pulses intact; Absent cyanosis or edema *Routine Skin Exam Skin: Present intact; Absent erythema or wounds *Routine Neurological Exam Neurological: Present alert and oriented X3 Routine Psychiatric Exam Psychiatric: Present cooperative Meds Home Medications and Allergies Home Medications ?Medication ?Instructions ?Recorded ?Confirmed ?Type amlodipine 2.5 mg tablet 2.5 mg PO DAILY 06/04/25 06/04/25 History apixaban 2.5 mg tablet (Eliquis) 2.5 mg PO BID 06/04/25 06/04/25 History azithromycin 250 mg tablet 250 mg PO DAILY x 5 days 06/04/25 06/04/25 History baclofen 10 mg tablet 10 mg PO QID 06/04/25 06/04/25 History cholecalciferol (vitamin D3) 125 125 mcg PO DAILY 06/04/25 06/04/25 History mcg (5,000 unit) tablet clonazepam 1 mg tablet 1 mg PO BID 06/04/25 06/04/25 History fluticasone propionate 50 1 spray intranasal DAILY 06/04/25 06/04/25 History mcg/actuation nasal spray,suspension furosemide 20 mg tablet 20 mg PO DAILY 06/04/25 06/04/25 History gabapentin 300 mg capsule 300 mg PO QID 06/04/25 06/04/25 History levothyroxine 150 mcg tablet 150 mcg PO DAILY 06/04/25 06/04/25 History (Synthroid) naproxen 500 mg tablet 500 mg PO BID 06/04/25 06/04/25 History ondansetron 8 mg disintegrating 8 mg PO BID PRN Nausea 06/04/25 06/04/25 History tablet oxycodone-acetaminophen 10 mg-325 10 - 325 tab PO BID 06/04/25 06/04/25 History mg tablet pyridoxine (vitamin B6) 100 mg 100 mg PO DAILY 06/04/25 06/04/25 History tablet sertraline 100 mg tablet 100 mg PO DAILY 06/04/25 06/04/25 History simvastatin 20 mg tablet 20 mg PO DAILY 06/04/25 06/04/25 History sumatriptan succinate 50 mg tablet 50 mg PO BIDP PRN migraine 06/04/25 06/04/25 History headaches triamterene 37.5 0.5 tab PO DAILY 06/04/25 06/04/25 History mg-hydrochlorothiazide 25 mg tablet New Prescriptions to Start Prescriptions: Allergies Allergy/AdvReac Type Severity Reaction Status Date / Time aspirin Allergy Hives Verified 06/03/25 15:48 cefaclor (From Ceclor) Allergy Rash Verified 06/03/25 15:48 floxacillin Allergy Rash Verified 06/03/25 15:48 Assessment and Plan *Assessment and plan (1) NSTEMI (non-ST elevated myocardial infarction): Status: Acute Category: Medical Code(s): I21.4 - Non-ST elevation (NSTEMI) myocardial infarction (2) Acute hypoxic respiratory failure: Status: Acute Category: Medical Code(s): J96.01 - Acute respiratory failure with hypoxia (3) Multiple sclerosis: Status: Acute Category: Medical Code(s): G35 - Multiple sclerosis (4) Nicotine dependence: Status: Acute Category: Medical Code(s): F17.200 - Nicotine dependence, unspecified, uncomplicated Plan NSTEMI - No known CVD - Rising serial troponin and ischemic changes on EKG in the setting of acute hypoxic respiratory failure - She does have CV risk factors including age, [id number] tobacco use, high cholesterol, high blood pressure - Reports recent normal workup with cardiology in [place]-Will obtain records - Check 2D echo for LV function and wall motion abnormality - Working diagnosis is likely underlying CVD with acute ischemic demand in the setting of hypoxic respiratory failure. Likely conservative medical management, consider predischarge heart cath. 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 Anticipate pre-discharge LHC early next week.
[2025-06-04] MEDS: OXYCODONE 10MG W/APAP 325MG TABLET 1 EACH PO (09:49)
[2025-06-04] MEDS: IPRATROPIUM/ALBUTEROL 3 ML NEB IH ×3 (11:05→23:19)
--- NOTE | 2025-06-04 12:20 | EXP.PULM.CON ---
History of Present Illness History of present illness: Ms. Mueller is a 65-year-old female greater than 76-egmw-amwt smoking history carries a diagnosis of asthma multiple sclerosis presenting to the ER with worsening respiratory distress and pulmonary was called for further evaluation and management. [facility] Disclaimer: The information contained in this section may have been updated after the patient was seen, as this information can be updated by other users. Medical History (Updated 06/04/25 @ 17:10 by Taz Gauthier MD) Viral pneumonia Hypercholesteremia Hypercholesteremia Hypothyroidism Multiple sclerosis Surgical History H/O tubal ligation Hx of tonsillectomy Social History Smoking Status: Current every day smoker alcohol intake: never current occupational status: other Travel in the last 8 weeks?: None Have you lived/traveled outside US in past 30 days?: No Contact w/someone who lives/traveled outside US past 30 days?: No Exposure to someone with infectious disease in past 14 days?: No Do you have a fever (greater than 100.4 F or 38 C)?: No Have you tested positive for COVID-19?: No Exposed to someone with COVID-19 in past 14 days?: No Do you have a sore throat?: No Do you have a cough?: Yes Do you have any weakness?: Yes Do you have any diarrhea?: No Are you experiencing any unusual bleeding?: No Do you have any muscle aches/pain?: No Do you have any abdominal pain?: No Are you experiencing loss of taste or smell?: No Review of Systems Constitutional Constitutional: Reports body ache(s), Reports fatigue, Denies headache(s) and Reports lethargy Eyes Eyes: Denies itchy eyes and Denies loss of vision ENT Ears, Nose, Mouth, and Throat: Denies headache(s), Denies lip swelling, Denies throat swelling and Denies vertigo *Cardiovascular Cardiovascular: Reports dyspnea, Reports dyspnea on exertion and Denies syncope *Respiratory Respiratory: Denies change in phlegm color, Denies chest congestion, Reports cough, Reports dyspnea, Reports dyspnea on exertion, Denies excessive phlegm production, Denies hemoptysis, Denies pain on inspiration, Denies pain with cough and Denies wheezing *Gastrointestinal Gastrointestinal: Denies abdominal pain, Denies belching and Denies cramping *Musculoskeletal Musculoskeletal: Reports back pain, Reports muscle weakness, Reports myalgias and Reports other (No small joint swelling or Pain) *Neurologic Neurologic: Denies headache(s), Denies loss of vision, Denies syncope and Denies vertigo Psychiatric Psychiatric: Denies homicidal ideation and Denies suicidal ideation Endocrine Endocrine: Reports fatigue and Denies heat intolerance Hematologic/Lymphatic Hematologic/Lymphatic: Denies easy bleeding and Denies lymphadenopathy Allergic/Immunologic Allergic/Immunologic: Denies itchy eyes, Denies lip swelling, Denies throat swelling and Denies wheezing Pulmonology Exam Inpatient Vital signs and Labs for Last 24 Hours: Temp Pulse Resp BP Pulse Ox O2 Del Method O2 Flow Rate 97.6 F 68 16 127/65 89 L Vapotherm 40 06/04/25 08:00 06/04/25 12:00 06/04/25 11:01 06/04/25 11:01 06/04/25 11:15 06/04/25 11:15 06/04/25 11:15 FiO2 45 06/04/25 11:15 Laboratory Results - last 24 hr 06/03/25 15:37: WBC 11.2 H, RBC 5.17, Hgb 14.3, Hct 44.3, MCV 85.7, MCH 27.7, MCHC 32.3, RDW 17.0, Plt Count 291, MPV 9.5, Neut % (Auto) 77.8, Lymph % (Auto) 12.8, [place] % (Auto) 7.5, Eos % (Auto) 0.1, Baso % (Auto) 1.3, Neut # (Auto) 8.7 H, Lymph # (Auto) 1.4, [place] # (Auto) 0.8, Eos # (Auto) 0.0, Baso # (Auto) 0.1, VBG pH 7.37, VBG pCO2 49.1, VBG pO2 41.8 H, VBG HCO3 27.9, VBG Total CO2 29.4 H, VBG O2 Saturation 76.6 H, VBG Base Excess 2.7 H, VBG Lactic Acid 1.9, Sodium 138, Potassium 3.2 L, Chloride 99, Carbon Dioxide 34 H, Anion Gap 8.2, BUN 29 H, Creatinine 1.10 H, Estimated Creat Clear 52, Estimated GFR 50 L, Est GFR ( Amer) 61, Glucose 163 H, Calcium 7.9 L, Magnesium 1.7, Total Bilirubin 0.4, AST 53 H, ALT 25, Alkaline Phosphatase 98, Troponin I 0.03, NT-Pro-B Natriuret Pep 7330 H, Total Protein 7.2, Albumin 3.9, Globulin 3.3 H, Albumin/Globulin Ratio 1.2, TSH < 0.02 L, Free T4 2.44 H 06/03/25 18:50: VBG pH 7.34, VBG pCO2 58.0 H, VBG pO2 56.9 H, VBG HCO3 30.7 H, VBG Total CO2 32.4 H, VBG O2 Saturation 88.1 H, VBG Base Excess 4.9 H, VBG Lactic Acid 3.5 H 06/03/25 18:57: Chlamy pneumoniae PCR Not detected, Adenovirus (PCR) Not detected, B. pertussis DNA (PCR) Not detected, Coronavirus OC43 (PCR) Not detected, Coronavirus HKU1 (PCR) Not detected, Coronavirus 229E (PCR) Not detected, SARS-CoV-2 (PCR) Not detected, Coronavirus NL63 (PCR) Not detected, Human Metapneumovir PCR Not detected, Influenza A (H1) PCR Not detected, Influ A (H1N1/09) PCR Not detected, Influenza A (H3) PCR Not detected, Influenza Type A (PCR) Not detected, Influenza Type B (PCR) Not detected, M. pneumoniae (PCR) Not detected, Parainfluenza 1 (PCR) Not detected, Parainfluenza 2 (PCR) Not detected, Parainfluenza 3 (PCR) Not detected, Parainfluenza 4 (PCR) Not detected, RSV (PCR) Not detected, Entero/Rhino (PCR) Detected A 06/03/25 19:10: Troponin I 0.04 H 06/03/25 21:31: VBG pH 7.39, VBG pCO2 50.2, VBG pO2 75.8 H, VBG HCO3 29.4, VBG Total CO2 30.9 H, VBG O2 Saturation 94.7 H, VBG Base Excess 4.3 H, VBG Lactic Acid 3.5 H, Troponin I 0.05 H 06/03/25 22:56: Lactate 3.5 H 06/04/25 00:35: Procalcitonin 0.208 06/04/25 01:42: Lactate 1.4, Troponin I 0.09 H 06/04/25 05:04: C-Reactive Protein 41.9 H 06/04/25 05:06: WBC 14.4 H D, RBC 4.90, Hgb 13.5, Hct 41.3, MCV 84.3, MCH 27.6, MCHC 32.7, RDW 16.7, Plt Count 268, MPV 10.1, Neut % (Auto) 92.3 H, Lymph % (Auto) 5.6 L, [place] % (Auto) 1.2 L, Eos % (Auto) 0.0 L, Baso % (Auto) 0.2, Neut # (Auto) 13.3 H, Lymph # (Auto) 0.8, [place] # (Auto) 0.2, Eos # (Auto) 0.0, Baso # (Auto) 0.0, Sodium 139, Potassium 3.6, Chloride 101, Carbon Dioxide 29, Anion Gap 12.6, BUN 25 H, Creatinine 1.00, Estimated Creat Clear 57, Estimated GFR 56 L, Est GFR ( Amer) 68, Glucose 158 H, Calcium 9.1, Troponin I 0.11 H I & O for Labs for Last 24 Hours: Intake & Output 06/01/25 06/02/25 06/03/25 06/04/25 23:59 23:59 23:59 23:59 Intake Total 1150.000 / 1372.000 564 / 564 Balance 1150.000 / 1372.000 564 / 564 Weight 140 lb 137 lb 2.04 oz Constitutional: Present mild distress Head: Present normocephalic and atraumatic ENT: Present normal exam, normal oropharynx and mucous membranes moist Neck: Present normal inspection and full ROM Respiratory: Present rhonchi and able to speak in complete sentences; Absent prolonged expiratory phase or diminished air movement Cardiac: Present S1/S2, Tachycardia and radial pulses present GI: Present soft and distention; Absent tenderness or guarding Rectal (female): Present deferred (female): Present deferred Skin: Present intact; Absent cyanosis or jaundice Neuro: Present alert, awake and oriented x 3 Extremities: Present normal inspection; Absent clubbing or cyanosis Psychiatric: Present normal affect and cooperative Meds Home Medications and Allergies Home Medications ?Medication ?Instructions ?Recorded ?Confirmed ?Type amlodipine 2.5 mg tablet 2.5 mg PO DAILY 06/04/25 06/04/25 History apixaban 2.5 mg tablet (Eliquis) 2.5 mg PO BID 06/04/25 06/04/25 History azithromycin 250 mg tablet 250 mg PO DAILY x 5 days 06/04/25 06/04/25 History baclofen 10 mg tablet 10 mg PO QID 06/04/25 06/04/25 History cholecalciferol (vitamin D3) 125 125 mcg PO DAILY 06/04/25 06/04/25 History mcg (5,000 unit) tablet clonazepam 1 mg tablet 1 mg PO BID 06/04/25 06/04/25 History fluticasone propionate 50 1 spray intranasal DAILY 06/04/25 06/04/25 History mcg/actuation nasal spray,suspension furosemide 20 mg tablet 20 mg PO DAILY 06/04/25 06/04/25 History gabapentin 300 mg capsule 300 mg PO QID 06/04/25 06/04/25 History levothyroxine 150 mcg tablet 150 mcg PO DAILY 06/04/25 06/04/25 History (Synthroid) naproxen 500 mg tablet 500 mg PO BID 06/04/25 06/04/25 History ondansetron 8 mg disintegrating 8 mg PO BID PRN Nausea 06/04/25 06/04/25 History tablet oxycodone-acetaminophen 10 mg-325 10 - 325 tab PO BID 06/04/25 06/04/25 History mg tablet pyridoxine (vitamin B6) 100 mg 100 mg PO DAILY 06/04/25 06/04/25 History tablet sertraline 100 mg tablet 100 mg PO DAILY 06/04/25 06/04/25 History simvastatin 20 mg tablet 20 mg PO DAILY 06/04/25 06/04/25 History sumatriptan succinate 50 mg tablet 50 mg PO BIDP PRN migraine 06/04/25 06/04/25 History headaches triamterene 37.5 0.5 tab PO DAILY 06/04/25 06/04/25 History mg-hydrochlorothiazide 25 mg tablet New Prescriptions to Start Prescriptions: Allergies Allergy/AdvReac Type Severity Reaction Status Date / Time aspirin Allergy Hives Verified 06/03/25 15:48 cefaclor (From [facility]) Allergy Rash Verified 06/03/25 15:48 floxacillin Allergy Rash Verified 06/03/25 15:48 Results Laboratory Findings 06/04/25 05:06 06/04/25 05:06 Abnormal lab findings: Abnormal Labs 06/03/25 06/03/25 06/03/25 15:37 18:50 18:57 WBC 11.2 H Neut % (Auto) Lymph % (Auto) [place] % (Auto) Eos % (Auto) Neut # (Auto) 8.7 H VBG pCO2 58.0 H VBG pO2 41.8 H 56.9 H VBG HCO3 30.7 H VBG Total CO2 29.4 H 32.4 H VBG O2 Saturation 76.6 H 88.1 H VBG Base Excess 2.7 H 4.9 H VBG Lactic Acid 3.5 H Potassium 3.2 L Carbon Dioxide 34 H BUN 29 H Creatinine 1.10 H Estimated GFR 50 L Glucose 163 H Lactate Calcium 7.9 L AST 53 H Troponin I C-Reactive Protein NT-Pro-B Natriuret Pep 7330 H Globulin 3.3 H TSH < 0.02 L Free T4 2.44 H Entero/Rhino (PCR) Detected A 06/03/25 06/03/25 06/03/25 19:10 21:31 22:56 WBC Neut % (Auto) Lymph % (Auto) [place] % (Auto) Eos % (Auto) Neut # (Auto) VBG pCO2 VBG pO2 75.8 H VBG HCO3 VBG Total CO2 30.9 H VBG O2 Saturation 94.7 H VBG Base Excess 4.3 H VBG Lactic Acid 3.5 H Potassium Carbon Dioxide BUN Creatinine Estimated GFR Glucose Lactate 3.5 H Calcium AST Troponin I 0.04 H 0.05 H C-Reactive Protein NT-Pro-B Natriuret Pep Globulin TSH Free T4 Entero/Rhino (PCR) 06/04/25 06/04/25 06/04/25 01:42 05:04 05:06 WBC 14.4 H D Neut % (Auto) 92.3 H Lymph % (Auto) 5.6 L [place] % (Auto) 1.2 L Eos % (Auto) 0.0 L Neut # (Auto) 13.3 H VBG pCO2 VBG pO2 VBG HCO3 VBG Total CO2 VBG O2 Saturation VBG Base Excess VBG Lactic Acid Potassium Carbon Dioxide BUN 25 H Creatinine Estimated GFR 56 L Glucose 158 H Lactate Calcium AST Troponin I 0.09 H 0.11 H C-Reactive Protein 41.9 H NT-Pro-B Natriuret Pep Globulin TSH Free T4 Entero/Rhino (PCR) Assessment and Plan *Assessment and plan (1) Acute hypoxic respiratory failure: Status: Acute Category: Medical Code(s): J96.01 - Acute respiratory failure with hypoxia (2) Viral pneumonia: Status: Acute Category: Medical Code(s): J12.9 - Viral pneumonia, unspecified Plan Ms. Mueller is a 65-year-old female with reported history of greater than 77-hvvs-dlew smoking history, multiple sclerosis, DVT presented to the ER with worsening respiratory distress and pulmonary was called for further evaluation and management. Afebrile. Hemodynamically stable. Mild neutrophilic predominant leukocytosis. Blood gas upon admission no evidence of hypercarbic respiratory failure. Comprehensive comprehensive respiratory viral PCR panel positive for enterorhinovirus. CTA PE protocol upon admission no obvious evidence of pulmonary embolism. No dense consolidative/airspace changes noted. Bilateral upper lobe septal thickening noted concerning for volume overload. Subpleural interstitial changes likely from dependent atelectasis. No other consolidative/airspace changes. Dilated pulmonary artery noted. Emphysematous changes noted. Patient predominant complaint include generalized weakness with no focal neurological deficit. Overall patient presentation from the respiratory standpoint is not consistent with multiple sclerosis exacerbation. Significant improvement in the noted respiratory distress, weaned to 4 L nasal cannula. However patient received 1 g of steroids in the emergency department. Plan: Continue DuoNebs every 6 hours and Pulmicort Q12 scheduled Continue oxygen supplementation to maintain O2 saturation goal of 90% or above, wean as tolerated Continue doxycycline to complete a total of 5-day course 40 mg Lasix IV once. Otherwise continue home diuretic dose. Follow with cardiology recommendations. No need for steroids from pulmonary standpoint for the concerning MS exacerbation. Incentive spirometry and flutter valve Closely monitor patient respiratory status # For the other noted concerning findings including dilated PE and possible pulmonary hypertension, will follow as an outpatient basis. # Thank you for involving pulmonary in this patient care. Will continue to follow.
--- OUTSIDE RECORDS SUMMARY | 2025-06-04 14:59 | XMS_ITS | Encounter Summary ---
[facility] Organization [facility] Address [address] [place] [address] Care Team Providers Care Steam Power Plant Operator Name Role Phone Renato Hwang MD Primary Care Provider [phone] Encounter Details Date Type Department Care Team [...] on filedocumented in this encounter Care Teams Steam Power Plant Operator Relationship Specialty Start Date End Date Renato Hwang MD [address] [place] [address] PCP - General Emergency Medicine 04/10/24 documented as of this encounter
--- OUTSIDE RECORDS SUMMARY | 2025-06-04 14:59 | XMS_ITS | Encounter Summary ---
Author Organization [facility] Address [address] [place] [address] Care Team Providers Care Family And Divorce Legal Assistant Name Role Phone Cindy Chow MD Primary Care Provider [phone] Encounter Details Date Type Department Care Team ([facility] st Contact Info) Description 04/02/2025 Telephone [facility] Emergency Department [address] [place] [address] Delfina Sutherland MD [address] [place] [address] Social History Tobacco Use Types Packs/Day Years [...] documented as of this encounter Care Teams Family And Divorce Legal Assistant Relationship Specialty Start Date End Date Cindy Chow MD [address] [place] [address] [address] [place] [address] PCP - General 02/10/21 documented as of this encounter
--- OUTSIDE RECORDS SUMMARY | 2025-06-04 14:59 | XMS_ITS | Encounter Summary ---
Author Organization [facility] Address [address] [place] [address] Care Team Providers Care Playground Attendant Name Role Phone Renato Hwang MD Primary Care Provider [phone] Reason for Visit * Reason Onset Date Comments Isidra MCHUGH - CORBY 06/04/2025 Encounter Details Date Type Department Care Team (Late st Contact Info) Description 06/04/2025 Telephone [facility] CARDIOLOGY [address] [place] [address] Gerri Mchugh APRN [address] [place] [address] Isidra MCHUGH - RECORDS Social History Tobacco Use Types Packs/Day Years [...] Telephone Encounter - Marcela Glasgow MA - 06/04/2025 10:00 AM EDT Last OV Note and EKG sent. * Telephone Encounter - Calvin Baker RegSched Rep - 06/04/2025 9:46 AM EDT Hub staff attempted to follow warm transfer process and was unsuccessful Caller: SHABBIR FROM [facility] Relationship to patient: [facility] Best call back number: [phone] Patient is needing: SHABBIR CALLED REQUESTING LAST OFFICE NOTE AND EKG FOR PT. THESE CAN BE FAXED [phone]. documented in this encounter Plan of Treatment Not on file documented as of this encounter Visit Diagnoses Not on filedocumented in this encounter Care Teams Playground Attendant Relationship Specialty Start Date End Date Renato Hwang MD [address] [place] [address] PCP - General Emergency Medicine 04/10/24 documented as of this encounter
--- OUTSIDE RECORDS SUMMARY | 2025-06-04 14:59 | XMS_ITS | Encounter Summary ---
[facility] [address] [place] [address] Care Team Providers Care Interpretative Dancer Name Role Phone Renato Hwang MD Primary Care Provider [phone] Reason for Visit * Reason Onset Date Comments DR. LAW - CARDIAC CLEARANCE 05/11/2025 Encounter Details Date Type Department Care Team (Late st Contact Info) Description 05/11/2025 Telephone [facility] CARDIOLOGY [address] [place] [address] Britni Law MD [address] [place] [address] DR. LAW - CARDIAC CLEARANCE [...] on filedocumented in this encounter Care Teams Interpretative Dancer Relationship Specialty Start Date End Date Renato Hwang MD [address] [place] [address] PCP - General Emergency Medicine 04/10/24 documented as of this encounter
--- OUTSIDE RECORDS SUMMARY | 2025-06-04 14:59 | XMS_ITS | Encounter Summary ---
[facility] [address] [place] [address] Care Team Providers Care Budget Specialist Name Role Phone Renato Hwang MD Primary Care Provider [phone] Encounter Details Date Type Department Care Team (Late st Contact Info) Description 05/26/2025 Patient rounding ([facility] [place] [facility] [address] [place] [address] Gerri Mchugh APRN [address] [place], [place] [id number] Social History Tobacco Use Types Packs/Day Years [...] is Tawny Marie and I am the Claims Analyst for [facility]. I would like to thank you [...] your first visit to us as a [facility]? In the next few days, you will be receiving a Patient Experience Survey. Thank you for taking the time to answer a few questions today. I hope you have a good day. documented in this encounter Plan of Treatment Not on file documented as of this encounter Visit Diagnoses Not on filedocumented in this encounter Care Teams Budget Specialist Relationship Specialty Start Date End Date Renato Hwang MD [address] [place] [address] PCP - General Emergency Medicine 04/10/24 documented as of this encounter
--- OUTSIDE RECORDS SUMMARY | 2025-06-04 14:59 | XMS_ITS | Encounter Summary ---
Author Organization [facility] Address [address] [place] [address] Care Team Providers Care Residential Driver Name Role Phone Cindy Chow MD Primary Care Provider [phone] Encounter Details Date Type Department Care Team ([facility] st Contact Info) Description 04/09/2023 Orders Only External Location [address] [place] [address] Provider, External Social History Tobacco Use Types [...] documented as of this encounter Care Teams Residential Driver Relationship Specialty Start Date End Date Cindy Chow MD [address] [place] [address] [address] [place] [address] PCP - General 02/10/21 documented as of this encounter
--- OUTSIDE RECORDS SUMMARY | 2025-06-04 14:59 | XMS_ITS | Clinical Summary ---
Author Organization [facility] Address [address] [place] [address] Care Team Providers Care Patrol Commander Name Role Phone Cindy Chow MD Primary Care Provider [phone] Allergies Active Allergy Reactions Criticality Noted Date [...] 150 MCG tablet 02/28/2023 Active HYDROcodone-acet aminophen ([place]) 7.5-325 MG tablet 02/23/2023 Active gabapentin (Neurontin) [...] 04/02/2025 Telephone [facility] Emergency Department [address] [place] [address] Delfina Sutherland MD 04/01/2025 4:43 PM EDT - 04/01/2025 8:09 PM EDT Emergency [facility] Emergency Department [address] [place] [address] Maryjane Tejada MD MS (multiple sclerosis) ([facility]) (Primary Dx); Numbness of right hand; Hx of multiple sclerosis ([facility]) Discharge Disposition: Home or Self Care 04/01/2025 Travel 03/28/2025 Orders Only External Location [address] [place] [address] Provider, External 03/28/2025 Orders Only External Location [address] [place] [address] Provider, External from Last 3 Months Immunizations [...] - Risk 60-74 years 1-dose series) 2022 [id number] Vaccine ( - season) 2025 08/15/2022, 08/22/2021, [...] 2 Hour, Plasma (04/01/2025 7:03 PM EDT) [facility] Troponin T, High Sensitivity, 2 Hour 18(H) <14 ng/L 04/01/2025 7:24 PM EDT [facility] Troponin Delta 0 <10 ng/L 04/01/2025 7:24 PM EDT [facility] Troponin Delta Interpretation Not Significant 04/01/2025 7:24 PM EDT [facility] Comment:Not Significant. No acute change in troponin observed between the baseline and 2 hour samples. Blood Venous blood specimen / Unknown Venipuncture / Unknown 04/01/2025 7:03 PM EDT 04/01/2025 7:05 PM EDT [place] [facility] BLOOD ORDERABLES Final Resul t [facility] [address] [place] [address] * XR Chest 1 View (04/01/2025 5:56 [...] ECG Atrial Rate 68 BPM MUSE ECG ME Interval 160 ms MUSE ECG QRSD Interval 68 ms MUSE ECG QT Interval 410 ms MUSE ECG QTC Interval 435 ms MUSE ECG P Sparkill 28 degrees MUSE ECG R Sparkill 74 degrees MUSE ECG T Wave Sparkill 47 degrees MUSE ECG Diagnosis Poor data [...] Differentiation (04/01/2025 5:00 PM EDT) Pathologist [facility] HIV 1 & 2 Antibody/Antigen Screen Non Reactive Non Reactive 04/01/2025 5:55 PM EDT [facility] Comment:Screening for HIV 1 & 2 antibodies, and P24 antigen is NONREACTIVE. No confirmatory testing is required. Blood Venous blood specimen / Unknown Venipuncture / Unknown 04/01/2025 5:00 PM EDT 04/01/2025 5:15 PM EDT [place] [facility] BLOOD ORDERABLES Final Resul t [facility] [address] [place] [address] * (ABNORMAL) Troponin now and 120 min (04/01/2025 5:00 PM EDT) Pathologist [facility] Troponin T, High Sensitivity, 0 Hour 18(H) <14 ng/L 04/01/2025 5:29 PM EDT [facility] Blood Venous blood specimen / Unknown Venipuncture / Unknown 04/01/2025 5:00 PM EDT 04/01/2025 5:03 PM EDT [place] [facility] BLOOD ORDERABLES Final Resul t Performing Organization Address [facility] Co de Phone Number [facility] [address] [place] [address] * APTT (PTT) (04/01/2025 5:00 PM EDT) aPTT 27 25 - 35 sec 04/01/2025 5:20 PM EDT [facility] Blood Venous blood specimen / Unknown Venipuncture / Unknown 04/01/2025 5:00 PM EDT 04/01/2025 5:03 PM EDT [place] [facility] BLOOD ORDERABLES Final Resul t Performing Organization Address [facility] Phone Number [facility] [address] [place] [address] * Prothrombin Time (04/01/2025 5:00 PM EDT) Prothrombin Time 13.6 12.0 - 14.3 sec 04/01/2025 5:19 PM EDT [facility] INR 1.1 0.9 - 1.1 04/01/2025 5:19 PM EDT [facility] Blood Venous blood specimen / Unknown Venipuncture / Unknown 04/01/2025 5:00 PM EDT 04/01/2025 5:03 PM EDT Narrative [facility] - 04/01/2025 5:19 PM EDT OPTIMAL INR RANGES FOR PATIENT ON ORAL ANTICOAGULANT THERAPY Prevention of venous thromboembolism INR 2.0 to 3.0 In patients with heart disease: Atrial fibrillation INR 2.0 to 3.0 Valvular heart disease INR 2.0 to 3.0 Tissue heart valves INR 2.0 to 3.0 Mechanical prosthetic valves INR 2.5 to 3.5 Prevention of recurrent NH INR 2.5 to 3.5 [place] [facility] BLOOD ORDERABLES Final Resul t Performing Organization Address [facility] Co de Phone Number [facility] [address] [place] [address] * (ABNORMAL) Anti Xa Level Unfractionated Heparin (04/01/2025 5:00 PM EDT) Anti Xa Level Unfractionated Heparin 1.08(HH) <1.00 IU/mL 04/01/2025 5:35 PM EDT [facility] Blood Venous blood specimen / Unknown Venipuncture / Unknown 04/01/2025 5:00 PM EDT 04/01/2025 5:03 PM EDT Narrative [facility] - 04/01/2025 5:35 PM EDT Therapeutic Range: UFH Full Dose and ACS/NH protocols*: 0.30 - 0.70 IU/mL UFH Low Dose protocol*: 0.25 - 0.50 IU/mL UFH prophylaxis: Not established [place] [facility] BLOOD ORDERABLES Final Resul t Performing Organization Address [facility] Co de Phone Number [facility] [address] [place] [address] * (ABNORMAL) CBC with Diff (04/01/2025 5:00 PM EDT) WBC Count 8.42 3.70 - 10.30 10*3/uL LAB HEMATOLOGY METHOD 04/01/2025 5:07 PM EDT [facility] RBC Count 4.19 3.90 - 5.20 10*6/uL LAB HEMATOLOGY METHOD 04/01/2025 5:07 PM EDT [facility] HGB 12.2 11.2 - 15.7 g/dL LAB HEMATOLOGY METHOD 04/01/2025 5:07 PM EDT [facility] HCT 37.9 34.0 - 45.0 % LAB HEMATOLOGY METHOD 04/01/2025 5:07 PM EDT [facility] Platelet Count 334 155 - 369 10*3/uL LAB HEMATOLOGY METHOD 04/01/2025 5:07 PM EDT [facility] MCV 91 79 - 98 fL LAB HEMATOLOGY METHOD 04/01/2025 5:07 PM EDT [facility] MCH 29.1 26.0 - 32.0 pg LAB HEMATOLOGY METHOD 04/01/2025 5:07 PM EDT [facility] MCHC 32.2 30.7 - 35.5 g/dL LAB HEMATOLOGY METHOD 04/01/2025 5:07 PM EDT [facility] RDW 15.6(H) 11.5 - 14.5 % LAB HEMATOLOGY METHOD 04/01/2025 5:07 PM EDT [facility] MPV 9.0 8.8 - 12.5 fL LAB HEMATOLOGY METHOD 04/01/2025 5:07 PM EDT [facility] nRBC 0.0 <=0.0 per 100 WBCs LAB HEMATOLOGY METHOD 04/01/2025 5:07 PM EDT [facility] Differential Type Automated LAB HEMATOLOGY METHOD 04/01/2025 5:07 PM EDT [facility] Neutrophils % 67 % LAB HEMATOLOGY METHOD 04/01/2025 5:07 PM EDT [facility] Lymphocytes % 22 % LAB HEMATOLOGY METHOD 04/01/2025 5:07 PM EDT [facility] Monocytes % 8 % LAB HEMATOLOGY METHOD 04/01/2025 5:07 PM EDT [facility] Eosinophils % 2 % LAB HEMATOLOGY METHOD 04/01/2025 5:07 PM EDT [facility] Basophils % 1 % LAB HEMATOLOGY METHOD 04/01/2025 5:07 PM EDT [facility] Immature Granulocytes % 0 % LAB HEMATOLOGY METHOD 04/01/2025 5:07 PM EDT [facility] Neutrophils Absolute 5.60 1.60 - 6.10 10*3/uL LAB HEMATOLOGY METHOD 04/01/2025 5:07 PM EDT [facility] Lymphocytes Absolute 1.83 1.20 - 3.90 10*3/uL LAB HEMATOLOGY METHOD 04/01/2025 5:07 PM EDT [facility] Monocytes Absolute 0.64 0.30 - 0.90 10*3/uL LAB HEMATOLOGY METHOD 04/01/2025 5:07 PM EDT [facility] Eosinophils Absolute 0.20 0.00 - 0.50 10*3/uL LAB HEMATOLOGY METHOD 04/01/2025 5:07 PM EDT [facility] Basophils Absolute 0.12(H) 0.00 - 0.10 10*3/uL LAB HEMATOLOGY METHOD 04/01/2025 5:07 PM EDT [facility] Immature Granulocytes Absolute 0.03 0.00 - 0.06 10*3/uL LAB HEMATOLOGY METHOD 04/01/2025 5:07 PM EDT [facility] Blood Venous blood specimen / Unknown Venipuncture / Unknown 04/01/2025 5:00 PM EDT 04/01/2025 5:03 PM EDT Narrative [facility] - 04/01/2025 5:07 PM EDT Therapeutic decision making should be based on absolute values, rather than percentages. [place] [facility] BLOOD ORDERABLES Final Resul t Performing Organization Address City/[facility]/ZIP Co de Phone Number [facility] [address] [place] [address] * Test Qualitative Plasma (04/01/2025 5:00 PM EDT) Test Negative Negative 04/01/2025 5:29 PM EDT [facility] Blood Venous blood specimen / Unknown Venipuncture / Unknown 04/01/2025 5:00 PM EDT 04/01/2025 5:03 PM EDT Narrative [facility] - 04/01/2025 5:29 PM EDT Reference Range: Males and non- females: Negative. [place] [facility] BLOOD ORDERABLES Final Resul t Performing Organization Address City/[facility]/ZIP Co de Phone Number [facility] [address] [place] [address] * (ABNORMAL) Comprehensive Metabolic Panel (04/01/2025 5:00 PM EDT) Glucose, Plasma 89 74 - 99 mg/dL 04/01/2025 5:29 PM EDT [facility] BUN, Plasma 20 8 - 23 mg/dL 04/01/2025 5:29 PM EDT [facility] Creatinine, Plasma 0.79 0.60 - 1.10 mg/dL 04/01/2025 5:29 PM EDT [facility] BUN/Creatinine Ratio 25 04/01/2025 5:29 PM EDT [facility] Sodium, Plasma 141 136 - 145 mmol/L 04/01/2025 5:29 PM EDT [facility] Potassium, Plasma 3.6 3.6 - 4.9 mmol/L 04/01/2025 5:29 PM EDT [facility] Chloride, Plasma 103 97 - 107 mmol/L 04/01/2025 5:29 PM EDT [facility] CO2, Plasma 27 22 - 29 mmol/L 04/01/2025 5:29 PM EDT [facility] Anion Gap 11 6 - 16 mmol/L 04/01/2025 5:29 PM EDT [facility] Total Calcium, Plasma 8.5(L) 8.9 - 10.2 mg/dL 04/01/2025 5:29 PM EDT [facility] Total Protein 6.1(L) 6.3 - 7.9 g/dL 04/01/2025 5:29 PM EDT [facility] Albumin, Plasma 3.4(L) 3.5 - 5.2 g/dL 04/01/2025 5:29 PM EDT [facility] AST, Plasma 18 10 - 35 U/L 04/01/2025 5:29 PM EDT [facility] ALT, Plasma 12 10 - 35 U/L 04/01/2025 5:29 PM EDT [facility] Alkaline Phosphatase, Plasma 156(H) 46 - 142 U/L 04/01/2025 5:29 PM EDT [facility] Total Bilirubin, Plasma 0.4 0.2 - 1.1 mg/dL 04/01/2025 5:29 PM EDT [facility] eGFRcr 84.2 mL/min/1.7 3m*2 04/01/2025 5:29 PM EDT [facility] Comment:Reported eGFRcr in m L/min/1.73m2 is based the CKD-EPI 2020 equation that does not use a race coefficient. Blood Venous blood specimen / Unknown Venipuncture / Unknown 04/01/2025 5:00 PM EDT 04/01/2025 5:03 PM EDT us [place] [facility] BLOOD ORDERABLES Final Resul t Performing Organization Address City/[facility]/ZIP Co de Phone Number [facility] [address] [place] [address] * Light Blue Top (04/01/2025 4:58 PM EDT) Pathologist [facility] Extra Hold for add-ons 04/01/2025 8:01 PM EDT [facility] Comment:Auto resulted. Blood Venous blood specimen / Unknown 04/01/2025 4:58 PM EDT 04/01/2025 5:08 PM EDT us [place] [facility] BLOOD ORDERABLES Final Resul t Performing Organization Address [facility] Co de Phone Number [facility] [address] [place] [address] * POCT glucose meter (04/01/2025 4:58 PM EDT) [facility] POCT Glucose 92 74 - 99 mg/dL [...] 04/01/2025 5:36 PM EDT [facility] Addiction Therapist ID Dolores Khan 04/01/2025 5:36 PM EDT HEALTHCARE LAB Device ID [id number] 04/01/2025 5:36 PM EDT [facility] Specimen Type POC Venous 04/01/2025 5:36 PM EDT [facility] Blood Venous blood specimen / Unknown 04/01/2025 4:58 PM EDT 04/01/2025 5:36 PM EDT us Maryjane Tejada MD LAB POINT OF CARE TE ST DOCKED DEVICE UNSOLICITED RESULTS Final Result Performing Organization Address City/[facility]/ZIP Co de Phone Number [facility] [address] [place] [address] * CT Angio Neck (04/01/2025 4:54 PM [...] No significant stenosis or occlusion. No aneurysm. [facility] and Major Peripheral Branches: There [...] atherosclerosis. No significantstenosis or occlusion. No aneurysm. [facility] and Major Peripheral Branches: There [...] MD on 04/01/2025 5:06 PM [place] [facility] CT PROCEDURES Final Result * CT Angio Head (04/01/2025 4:54 PM EDT) Anatomical Region Laterality Modality [facility] Computed Tomogr aphy Impressions 04/01/2025 [...] No significant stenosis or occlusion. No aneurysm. [facility] and Major Peripheral Branches: There [...] atherosclerosis. No significantstenosis or occlusion. No aneurysm. [facility] and Major Peripheral Branches: There [...] MD on 04/01/2025 5:06 PM [place] [facility] CT PROCEDURES Final Result * CT Head [...] physicians. COMPARISON: Outside Head CT 03/28/2025 from [facility] Outside brain MRI 04/09/2023 from [facility] FINDINGS: Diagnostic Quality: Adequate. The ventricles and [...] physicians. COMPARISON: Outside Head CT 03/28/2025 from [facility] Outside brain MRI 04/09/2023 from [facility] FINDINGS: Diagnostic Quality: Adequate. The ventricles and [...] 3 Months Insurance [employer] Care Teams Patrol Commander Relationship Specialty Start Date End Date Cindy Chow MD [address] [place] [address] [address] [place] [address] PCP - General 02/10/21
--- OUTSIDE RECORDS SUMMARY | 2025-06-04 14:59 | XMS_ITS | Clinical Summary ---
Author Organization [facility] Address [address] [place] [address] Care Team Providers Care Preparer Samples And Repairs Name Role Phone Renato Hwang MD Primary Care Provider [phone] Allergies Active Allergy Reactions Criticality Noted Date [...] Active fluticasone (FLONASE) 50 MCG/ACT nasal spray [place] 1 spray every day by intranasal route. [...] Encounters Date Type Department Care Team Description 06/04/2025 Telephone [facility] [address] [phone] Gerri Mchugh APRN A. [facility]NE[facility]ER - RECORDS 05/26/2025 12:45 PM EDT Office Visit [facility] [address] [phone] Gerri Mchugh, [place] Preop cardiovascular exam (Primary Dx); Smoker; History of DVT (deep vein thrombosis); Acute pain of right shoulder 05/26/2025 Patient rounding ([facility] only) [facility] [address] [phone] Gerri Mchugh, [place] 05/26/2025 Travel 05/13/2025 Telephone [facility] [address] [phone] Gerri Mchugh, [place] 05/11/2025 Telephone [facility] [address] [phone] [facility]ES[facility] - CARDIAC [...] ve Non-Reacti ve 07/11/2024 12:09 AM EDT [facility] Hep A IgM Non-Reacti ve Non-Reacti ve 07/11/2024 12:09 AM EDT [facility] Hep B C IgM Non-Reacti ve Non-Reacti ve 07/11/2024 12:09 AM EDT [facility] Hepatitis C Ab Non-Reacti ve Non-Reacti ve 07/11/2024 12:09 AM EDT [facility] Blood Venipuncture / Unknown 07/10/2024 3:32 PM EDT 07/10/2024 3:32 PM EDT Narrative [facility] - 07/11/2024 12:09 AM EDT Results may be falsely decreased if patient taking Biotin. us Rohan Mcelroy MD LAB BLOOD ORDERABLES Final Re sult [facility]
[address] [place] [address], from Last 3 Months or Most Recently Relevant to Health Maintenance Insurance [facility] MEDICAID Care Teams Preparer Samples And Repairs Relationship Specialty Start Date End Date Renato Hwang MD [address] [place] [address] PCP - General Emergency Medicine 04/10/24
--- OUTSIDE RECORDS SUMMARY | 2025-06-04 14:59 | XMS_ITS | Encounter Summary ---
Author Organization [facility] Address [address] [place] [address] Care Team Providers Care Tow Driver Name Role Phone Renato Hwang MD Primary Care Provider [phone] Encounter Details Date Type Department Care Team (Late st Contact Info) Description 05/13/2025 Telephone [facility] [address] [place] [address] Gerri Mchugh APRN [address] [place], [place] [id number] Social History Tobacco Use Types Packs/Day Years [...] encounter Miscellaneous Notes * Telephone Encounter - Himanshu Calvillo RegSched Rep - 05/13/2025 10:03 AM EDT CC FAXED TO [facility] 05/13 @ 10:02 documented in this encounter Plan of Treatment Not on file documented as of this encounter Visit Diagnoses Not on filedocumented in this encounter Care Teams Tow Driver Relationship Specialty Start Date End Date Renato Hwang MD [address] [place] [address] PCP - General Emergency Medicine 04/10/24 documented as of this encounter
--- NOTE | 2025-06-04 16:04 | PC.NURSE ---
Patient weaned from vapotherm to 3LNC. VS stable and patient able to sit up in chair for lunch and dinner. Lung sounds diminished.
--- NOTE | 2025-06-04 17:55 | EXP.PN ---
Subjective *Date: 06/04/25 *Time: 17:55 Interval history: Patient feels better today, weaned to 4 L. No focal symptoms suggesting MS flare at this time. Will monitor closely overnight. Continue Lasix. Exam Data for Last 24 hours Vital signs and Labs for Last 24 Hours: Temp Pulse Resp BP Pulse Ox O2 Del Method O2 Flow Rate 97.6 F 63 16 108/60 L 93 L Room Air 3 06/04/25 08:00 06/04/25 16:00 06/04/25 16:00 06/04/25 16:00 06/04/25 16:00 06/04/25 16:57 06/04/25 16:00 FiO2 45 06/04/25 12:00 Laboratory Results - last 24 hr 06/03/25 15:37: Magnesium 1.7, NT-Pro-B Natriuret Pep 7330 H, TSH < 0.02 L, Free T4 2.44 H 06/03/25 18:50: VBG pH 7.34, VBG pCO2 58.0 H, VBG pO2 56.9 H, VBG HCO3 30.7 H, VBG Total CO2 32.4 H, VBG O2 Saturation 88.1 H, VBG Base Excess 4.9 H, VBG Lactic Acid 3.5 H 06/03/25 18:57: Chlamy pneumoniae PCR Not detected, Adenovirus (PCR) Not detected, B. pertussis DNA (PCR) Not detected, Coronavirus OC43 (PCR) Not detected, Coronavirus HKU1 (PCR) Not detected, Coronavirus 229E (PCR) Not detected, SARS-CoV-2 (PCR) Not detected, Coronavirus NL63 (PCR) Not detected, Human Metapneumovir PCR Not detected, Influenza A (H1) PCR Not detected, Influ A (H1N1/09) PCR Not detected, Influenza A (H3) PCR Not detected, Influenza Type A (PCR) Not detected, Influenza Type B (PCR) Not detected, M. pneumoniae (PCR) Not detected, Parainfluenza 1 (PCR) Not detected, Parainfluenza 2 (PCR) Not detected, Parainfluenza 3 (PCR) Not detected, Parainfluenza 4 (PCR) Not detected, RSV (PCR) Not detected, Entero/Rhino (PCR) Detected A 06/03/25 19:10: Troponin I 0.04 H 06/03/25 21:31: VBG pH 7.39, VBG pCO2 50.2, VBG pO2 75.8 H, VBG HCO3 29.4, VBG Total CO2 30.9 H, VBG O2 Saturation 94.7 H, VBG Base Excess 4.3 H, VBG Lactic Acid 3.5 H, Troponin I 0.05 H 06/03/25 22:56: Lactate 3.5 H 06/04/25 00:35: Procalcitonin 0.208 06/04/25 01:42: Lactate 1.4, Troponin I 0.09 H 06/04/25 05:04: C-Reactive Protein 41.9 H 06/04/25 05:06: WBC 14.4 H D, RBC 4.90, Hgb 13.5, Hct 41.3, MCV 84.3, MCH 27.6, MCHC 32.7, RDW 16.7, Plt Count 268, MPV 10.1, Neut % (Auto) 92.3 H, Lymph % (Auto) 5.6 L, [place] % (Auto) 1.2 L, Eos % (Auto) 0.0 L, Baso % (Auto) 0.2, Neut # (Auto) 13.3 H, Lymph # (Auto) 0.8, [place] # (Auto) 0.2, Eos # (Auto) 0.0, Baso # (Auto) 0.0, Sodium 139, Potassium 3.6, Chloride 101, Carbon Dioxide 29, Anion Gap 12.6, BUN 25 H, Creatinine 1.00, Estimated Creat Clear 57, Estimated GFR 56 L, Est GFR ( Amer) 68, Glucose 158 H, Calcium 9.1, Troponin I 0.11 H I & O for Last 24 hours: Intake & Output 06/01/25 06/02/25 06/03/25 06/04/25 23:59 23:59 23:59 23:59 Intake Total 1150.000 / 1372.000 984 / 984 Output Total 400 / 400 Balance 1150.000 / 1372.000 584 / 584 Weight 63.503 kg 62.2 kg Constitutional Constitutional: no acute distress *Routine HEENT Exam Head: Present normocephalic Eye: Present EOMI and PERRL ENT: Present mucous membranes moist *Routine Neck Exam Neck: Present supple; Absent lymphadenopathy *Routine Respiratory Exam Respiratory: Present CTA bilaterally *Routine Cardiovascular Exam Cardiovascular: Present RRR *Routine Abdominal Exam Abdominal: Present soft and normoactive bowel sounds; Absent tenderness *Routine Extremities Exam Extremities: Absent cyanosis, clubbing or edema *Routine Skin Exam Skin: Present warm; Absent rash *Routine Neurological Exam Neurological: Present alert and oriented X3 Assessment and Plan *Assessment and plan (1) Acute hypoxic respiratory failure: Status: Acute Category: Medical Code(s): J96.01 - Acute respiratory failure with hypoxia (2) NSTEMI (non-ST elevated myocardial infarction): Status: Acute Category: Medical Code(s): I21.4 - Non-ST elevation (NSTEMI) myocardial infarction (3) Multiple sclerosis: Status: Acute Category: Medical Code(s): G35 - Multiple sclerosis (4) Pulmonary hypertension: Status: Acute Category: Medical Code(s): I27.20 - Pulmonary hypertension, unspecified (5) RVF (right ventricular failure): Status: Acute Category: Medical Code(s): I50.810 - Right heart failure, unspecified Plan Vivi Mueller is a 65-year-old female with a medical history significant for multiple sclerosis presented with shortness of breath and was admitted for acute hypoxic respiratory failure. #Acute hypoxic respiratory failure #HFpEF exacerbation #RV failure #Pulmonary hypertension #Rhinovirus ? Presented with shortness of breath, BNP 7330, with evidence of volume overload and pulmonary hypertension on CTA chest. ? Initially required Vapotherm, weaned to 3 L nasal cannula saturating appropriately. ? Initially there was concern for multiple sclerosis flare, given IV Solu-Medrol 1 g. However, patient denies any focal weakness or specific symptoms for MS. Will hold off on further Solu-Medrol, monitor for symptoms overnight. ? ECHO 06/04/2025 shows moderately reduced RV function with septal flattening suggestive of RV failure/RV volume overload. ? Started IV Lasix 40 mg daily, spironolactone 25 mg. Follow-up urine output, monitor renal function, electrolytes. ? Wean oxygen as tolerated, baseline room air. ? Follow-up morning CMP. ? Patient will need close follow-up for sleep study on an outpatient basis given RV failure/pulmonary hypertension. #Acute on chronic hypercarbic respiratory failure #30 pack smoking history ? VBG initially showed hypercapnia pCO2 58, but compensated pH. ? Improved with Solu-Medrol, breathing treatments. Will hold off on further Solu-Medrol now, lung exam normal. ? Discussed with pulmonology, started doxycycline 100 mg twice daily day 10/04. ? Continue DuoNebs every 6 hours. ? Nicotine patch as needed. ? Patient states she has been tested negative for COPD with PFTs. #NSTEMI ? Presented with shortness of breath, troponins peaked at 0.11, EKG without acute ischemic changes. ? Cardiology consulted, tentatively recommending [facility] before discharge. Will reevaluate tomorrow. ? Started Plavix 75 mg, therapeutic Lovenox. ? Follow-up A1c, lipid panel. TSH low. #Multiple sclerosis ? Chronic issue, no focal signs of exacerbation. Follow-up with neurology. #Hyperthyroidism, iatrogenic #History of hypothyroidism/Lucinda disease ? TSH undetectable, free T4 elevated. Patient states she has been taking her Synthroid 150 mcg as prescribed, not anymore. ? Will hold off on further Synthroid during admission. Will decrease dose on discharge. ? Initially started on propranolol, but no evidence of thyroid storm so discontinued. #Hypertension ? Hold home amlodipine as BP soft. Plan to discontinue triamterene/hydrochlorothiazide given concomitant Lasix/spironolactone. #History of DVT ? Continue home Eliquis. #Anxiety/depression ? Continue home sertraline. Full code DVT prophylaxis: Home Eliquis
[2025-06-04] MEDS: FUROSEMIDE 40MG/4ML VIAL 40 MG IV (18:34)
[2025-06-04] MEDS: SPIRONOLACTONE 25MG TABLET 25 MG PO (18:34)
[2025-06-04] MEDS: PRAVASTATIN 40MG TAB 40 MG PO (20:57)
[2025-06-05] VITALS (16 sets, daily range): BP systolic 102–127; BP diastolic 60–80; PULSE 52–79; RESP 12–22; TEMP 36.4–36.8; O2SAT 85–96; BMI 20.3
[2025-06-05 06:26] LABS: Hematocrit 42.8 % (37.0-47.0); Hemoglobin 13.6 g/dL (12.2-16.2); Immature Granulocytes % 0.6 %; Mean Corpuscular HGB Conc 31.8 g/dL (31.8-35.4); Mean Corpuscular Hemoglobin 27.5 pg (27.0-31.2); Mean Corpuscular Volume 86.5 fl (81-99); Nucleated Red Blood Cells % 0 %; Platelet Count 281 K/mm3 (142-424); Red Blood Count 4.95 M/mm3 (4.20-5.40); Red Cell Distribution Width-SD 54.2 fL; White Blood Count 21.6 K/mm3 (4.8-10.8)
[2025-06-05 06:36] LABS: Alanine Aminotransferase 24 U/L (12-78); Albumin Level 3.7 g/dl (3.5-5.0); Albumin/Globulin Ratio 1.1 (1.1-1.8); Alkaline Phosphatase 92 U/L (38-126); Anion Gap 9.3 mEq/L (5-15); Aspartate Amino Transferase 43 U/L (14-36); Bilirubin,Total 0.3 mg/dl (0.2-1.3); Blood Urea Nitrogen 33 mg/dl (7-17); Calcium 8.9 mg/dl (8.4-10.2); Carbon Dioxide 32 mmol/L (22.0-30.0); Chloride 101 mmol/L (98-107); Creatinine Clearance Estimated 53 mL/min (50-200); Creatinine,Serum 1.00 mg/dl (0.52-1.04); Estimated Glomerular Filt Rate 56 ml/min (>60); GFR (African American) 68 ML/MIN (>60); Globulin 3.4 g/dL (1.3-3.2); Glucose 82 mg/dl (74-100); Magnesium 1.8 mg/dl (1.6-2.3); Potassium 3.3 mmoL/L (3.5-5.1); Sodium 139 mmol/L (136-145); Total Protein,Serum 7.1 g/dl (6.3-8.2)
[2025-06-05] MEDS: IPRATROPIUM/ALBUTEROL 3 ML NEB IH ×4 (06:36→23:07)
[2025-06-05 06:47] LABS: Cholesterol 147 mg/dl (140-200); HDL Cholesterol 52 mg/dl (40-60); Triglycerides 121 mg/dl (30-150)
[2025-06-05] MEDS: BACLOFEN 10MG TABLET 10 MG PO ×4 (08:36→20:09)
[2025-06-05] MEDS: CHOLECALCIFEROL 1,000 UNITS (25MCG) TABLET 125 MCG PO (08:36)
[2025-06-05] MEDS: FLUTICASONE PROP 50MCG NASAL SPRAY 16GM 1 SPRAY NS (08:38)
[2025-06-05] MEDS: SERTRALINE 100MG TABLET 100 MG PO (08:39)
[2025-06-05] MEDS: GABAPENTIN 300MG CAPSULE 300 MG PO ×4 (08:49→21:57)
[2025-06-05] MEDS: CLOPIDOGREL 75MG TAB 75 MG PO (08:49)
[2025-06-05] MEDS: FUROSEMIDE 40MG/4ML VIAL 40 MG IV (08:49)
[2025-06-05 09:28] LABS: Hemoglobin A1C 6.2 % (4.0-6.0)
[2025-06-05] MEDS: SPIRONOLACTONE 25MG TABLET 25 MG PO (10:41)
--- NOTE | 2025-06-05 10:57 | PC.NURSE ---
1030 Dr Candelaria at bedside for patient rounds.
--- NOTE | 2025-06-05 10:57 | PC.NURSE ---
1030 Dr Candelaria present on unit for patient rounds.
--- NOTE | 2025-06-05 13:37 | PC.NURSE ---
1107 per md request pulse oximeter was changed to a different hand. pt o2 sats were noted to be 95-96 on 5lpm. o2 was decreased to 4lpm at 1130. pt o2 was then noted to be 87-88. pt o2 was again increased to 5lpm. pt encouraged to use incentive spirometer, and to take breaths in through her nose and out through her mouth as she was noted to be breathing primarily through her mouth.
[2025-06-05] MEDS: DOXYCYCLINE HYCL 100 MG TABLET PO ×2 (14:02→20:09)
--- NOTE | 2025-06-05 15:14 | P.PN_ITS ---
Subjective *Date: 06/05/25 *Time: 15:14 Interval history: Patient feeling better today, but requiring 5 L nasal cannula today. Attempted to wean with desaturation to the low 80s today. Discussed with pulmonology, recommend encouraging incentive spirometer and flutter valve. Exam Data for Last 24 hours Vital signs and Labs for Last 24 Hours: Temp Pulse Resp BP Pulse Ox O2 Del Method O2 Flow Rate 98.1 F 77 14 122/68 85 L Nasal Cannula 5 06/05/25 12:06/05/25 12:06/05/25 12:06/05/25 12:01 06/05/25 12:01 06/05/25 13:00 06/05/25 13:00 FiO2 45 06/04/25 12:00 Laboratory Results - last 24 hr 06/05/25 05:55: WBC 21.6 H* D, RBC 4.95, Hgb 13.6, Hct 42.8, MCV 86.5, MCH 27.5, MCHC 31.8, RDW 17.2, Plt Count 281, MPV 9.8, Neut % (Auto) 84.8 H, Lymph % (Auto) 10.0, [place] % (Auto) 4.4, Eos % (Auto) 0.0 L, Baso % (Auto) 0.2, Neut # (Auto) 18.3 H, Lymph # (Auto) 2.2, [place] # (Auto) 1.0, Eos # (Auto) 0.0, Baso # (Auto) 0.1, Sodium 139, Potassium 3.3 L, Chloride 101, Carbon Dioxide 32 H, Anion Gap 9.3, BUN 33 H D, Creatinine 1.00, Estimated Creat Clear 53, Estimated GFR 56 L, Est GFR ( Amer) 68, Glucose 82, Hemoglobin A1c 6.2 H, Calcium 8.9, Magnesium 1.8, Total Bilirubin 0.3, AST 43 H, ALT 24, Alkaline Phosphatase 92, Total Protein 7.1, Albumin 3.7, Globulin 3.4 H, Albumin/Globulin Ratio 1.1, Triglycerides 121, Cholesterol 147, LDL Cholesterol Direct 66.04 L, VLDL Cholesterol 24, HDL Cholesterol 52, Cholesterol/HDL Ratio 2.8 I & O for Last 24 hours: Intake & Output 06/02/25 06/03/25 06/04/25 06/05/25 23:59 23:59 23:59 23:59 Intake Total 1150.000 / 0877.570 4187 / 1339 570 / 570 Output Total 1550 / 1550 950 / 950 Balance 1150.000 / 1372.000 -331 / -211 -380 / -380 Weight 63.503 kg 62.2 kg 58.8 kg Microbiology Reports for the Last 24 Hours: Microbiology 06/05/25 10:46 Sputum - Expectorated Sputum Gram Stain - Final Constitutional Constitutional: no acute distress *Routine HEENT Exam Head: Present normocephalic Eye: Present EOMI and PERRL ENT: Present mucous membranes moist *Routine Neck Exam Neck: Present supple; Absent lymphadenopathy *Routine Respiratory Exam Respiratory: Present CTA bilaterally *Routine Cardiovascular Exam Cardiovascular: Present RRR *Routine Abdominal Exam Abdominal: Present soft and normoactive bowel sounds; Absent tenderness *Routine Extremities Exam Extremities: Absent cyanosis, clubbing or edema *Routine Skin Exam Skin: Present warm; Absent rash *Routine Neurological Exam Neurological: Present alert and oriented X3 Assessment and Plan *Assessment and plan (1) Acute hypoxic respiratory failure: Status: Acute Category: Medical Code(s): J96.01 - Acute respiratory failure with hypoxia (2) NSTEMI (non-ST elevated myocardial infarction): Status: Acute Category: Medical Code(s): I21.4 - Non-ST elevation (NSTEMI) myocardial infarction (3) Multiple sclerosis: Status: Acute Category: Medical Code(s): G35 - Multiple sclerosis (4) Pulmonary hypertension: Status: Acute Category: Medical Code(s): I27.20 - Pulmonary hypertension, unspecified (5) RVF (right ventricular failure): Status: Acute Category: Medical Code(s): I50.810 - Right heart failure, unspecified Plan Vivi Mueller is a 65-year-old female with a medical history significant for multiple sclerosis presented with shortness of breath and was admitted for acute hypoxic respiratory failure. #Acute hypoxic respiratory failure #HFpEF exacerbation #RV failure #Pulmonary hypertension #Rhinovirus ? Presented with shortness of breath, BNP 7330, with evidence of volume overload and pulmonary hypertension on CTA chest. ? Initially required Vapotherm, weaned to nasal cannula. ? Initially there was concern for multiple sclerosis flare, given IV Solu-Medrol 1 g. However, patient denies any focal neurological symptoms for MS. Will hold off on further Solu-Medrol. ? ECHO 06/04/2025 shows moderately reduced RV function with septal flattening suggestive of RV failure/RV volume overload. ? Continue IV Lasix 40 mg daily, spironolactone 25 mg. Patient diuresing well, unable to obtain accurate I/O's due to PureWick leaking in bed. ? Patient requiring increased O2 requirements, 5 L today, though patient states she feels better today. Lungs clear to auscultation bilaterally. Patient does have underlying pulmonary hypertension on CTA, likely contributing. ? Discussed with pulmonology today, recommend encouraging incentive spirometer and flutter valve. ? Wean oxygen as tolerated, baseline room air. ? Follow-up morning CMP. ? Patient will need close follow-up for sleep study on an outpatient basis given RV failure/pulmonary hypertension. ? Kidney function stable, creatinine 1.0, GFR 56. #Acute on chronic hypercarbic respiratory failure #30 pack smoking history ? VBG initially showed hypercapnia pCO2 58, but compensated pH. ? Improved with Solu-Medrol, breathing treatments. Will hold off on further Solu-Medrol now, lung exam normal. ? Pulmonology following, continue doxycycline 100 mg twice daily day 11/04. ? Continue DuoNebs every 6 hours. ? Nicotine patch as needed. ? Patient states she has tested negative for COPD on PFTs. #NSTEMI #Prediabetes ? Presented with shortness of breath, troponins peaked at 0.11, EKG without acute ischemic changes. ? Cardiology consulted, tentatively recommending [facility] before discharge. Will reevaluate tomorrow. ? Continue Plavix 75 mg (allergic to aspirin), therapeutic Lovenox. ? A1c 6.2%, LDL 66, low TSH, high free T4. #Hyperthyroidism, iatrogenic #History of hypothyroidism/Lucinda disease ? TSH undetectable, free T4 elevated. Patient states she has been taking her Synthroid 150 mcg as prescribed, not anymore. ? Will hold off on further Synthroid during admission. Will decrease dose on discharge. ? Follow-up free T4 tomorrow. ? Initially started on propranolol, but no evidence of thyroid storm so discontinued. #Multiple sclerosis ? Chronic issue, no focal signs of exacerbation. Follow-up with neurology. #Hypertension ? Hold home amlodipine as BP soft. Plan to discontinue triamterene/hydrochlorothiazide given concomitant Lasix/spironolactone. #History of DVT ? Continue home Eliquis. #Anxiety/depression ? Continue home sertraline. Full code DVT prophylaxis: Home Eliquis
--- NOTE | 2025-06-05 16:15 | PC.NURSE ---
Patient left unit at this time with SRNA 1618
--- NOTE | 2025-06-05 17:58 | PC.NURSE ---
AOX4, PATIENTS STATES SHE FEELS BETTER TODAY. 5LNC SINCE ARRIVAL TO FLOOR. NO COMPLAINTS.
[2025-06-05] MEDS: PRAVASTATIN 40MG TAB 40 MG PO (20:09)
[2025-06-05] MEDS: OXYCODONE 10MG W/APAP 325MG TABLET 1 EACH PO (22:53)
[2025-06-05] MEDS: NICOTINE 21MG/24HR PATCH 21 MG TD (23:38)
[2025-06-06] VITALS (9 sets, daily range): BP systolic 95–114; BP diastolic 53–64; PULSE 60–83; RESP 15–20; TEMP 36.3–36.7; O2SAT 90–99; BMI 20.9
--- NOTE | 2025-06-06 05:27 | PC.NURSE ---
Pt remains alert and oriented x4 and currently tolerating 5L well @ 92%. Pt did c/o pain in her wrist and shoulder this shift and was treated per NOV. Pt O2 sat does decrease when sleeping, this nurse did reapply nasal cannula multiple times this shift. Pt is at bedside.
[2025-06-06 06:07] LABS: Hematocrit 42.9 % (37.0-47.0); Hemoglobin 14.0 g/dL (12.2-16.2); Immature Granulocytes % 0.4 %; Mean Corpuscular HGB Conc 32.6 g/dL (31.8-35.4); Mean Corpuscular Hemoglobin 27.9 pg (27.0-31.2); Mean Corpuscular Volume 85.5 fl (81-99); Nucleated Red Blood Cells % 0 %; Platelet Count 284 K/mm3 (142-424); Red Blood Count 5.02 M/mm3 (4.20-5.40); Red Cell Distribution Width-SD 52.0 fL; White Blood Count 9.8 K/mm3 (4.8-10.8)
[2025-06-06 06:24] LABS: Alanine Aminotransferase 24 U/L (12-78); Albumin Level 3.6 g/dl (3.5-5.0); Albumin/Globulin Ratio 1.1 (1.1-1.8); Alkaline Phosphatase 90 U/L (38-126); Anion Gap 8.4 mEq/L (5-15); Aspartate Amino Transferase 38 U/L (14-36); Bilirubin,Total 0.3 mg/dl (0.2-1.3); Blood Urea Nitrogen 29 mg/dl (7-17); Calcium 8.7 mg/dl (8.4-10.2); Carbon Dioxide 33 mmol/L (22.0-30.0); Chloride 99 mmol/L (98-107); Creatinine Clearance Estimated 53 mL/min (50-200); Creatinine,Serum 1.00 mg/dl (0.52-1.04); Estimated Glomerular Filt Rate 56 ml/min (>60); GFR (African American) 68 ML/MIN (>60); Globulin 3.2 g/dL (1.3-3.2); Glucose 75 mg/dl (74-100); Magnesium 1.8 mg/dl (1.6-2.3); Potassium 3.4 mmoL/L (3.5-5.1); Sodium 137 mmol/L (136-145); Total Protein,Serum 6.8 g/dl (6.3-8.2)
[2025-06-06] MEDS: IPRATROPIUM/ALBUTEROL 3 ML NEB IH ×2 (06:24→11:39)
[2025-06-06] MEDS: BACLOFEN 10MG TABLET 10 MG PO ×4 (08:08→21:34)
[2025-06-06] MEDS: SPIRONOLACTONE 25MG TABLET 25 MG PO (08:08)
[2025-06-06] MEDS: SERTRALINE 100MG TABLET 100 MG PO (08:08)
[2025-06-06] MEDS: DOXYCYCLINE HYCL 100 MG TABLET PO ×2 (08:08→21:34)
[2025-06-06] MEDS: CLOPIDOGREL 75MG TAB 75 MG PO (08:08)
[2025-06-06] MEDS: FUROSEMIDE 40MG/4ML VIAL 40 MG IV ×2 (08:09→19:28)
[2025-06-06] MEDS: CHOLECALCIFEROL 1,000 UNITS (25MCG) TABLET 125 MCG PO (08:09)
[2025-06-06] MEDS: FLUTICASONE PROP 50MCG NASAL SPRAY 16GM 1 SPRAY NS (08:10)
[2025-06-06] MEDS: GABAPENTIN 300MG CAPSULE 300 MG PO ×3 (08:12→21:34)
--- NOTE | 2025-06-06 08:32 | XR_ITS ---
PROCEDURE INFORMATION: Exam: XR Chest Exam date and time: 06/06/2025 8:37 AM Age: 65 years old Clinical indication: Shortness of breath; Additional info: Hypoxia TECHNIQUE: Imaging protocol: Radiologic exam of the chest. Views: 1 view. COMPARISON: CT ANGIO CHEST PE PROTOCOL 06/03/2025 4:57 PM FINDINGS: Lungs: Hazy infiltrates at the lung bases. Consider developing pneumonia. Pleural spaces: Unremarkable. No pleural effusion. No pneumothorax. Heart/Mediastinum: Unremarkable. No cardiomegaly. Bones/joints: Unremarkable. IMPRESSION: Hazy bibasilar pulmonary infiltrates. Consider pneumonia.
--- NOTE | 2025-06-06 17:43 | PC.NURSE ---
aox4, still requires 5lnc for o2 support. humidification added this morning for pt comfort and to help relieve nasal congestion.
--- NOTE | 2025-06-06 18:03 | EXP.PN ---
Subjective *Date: 06/06/25 *Time: 18:03 Interval history: Patient is resting in bed comfortably without acute distress. Lung exam normal. Continues to require 5 L nasal cannula, desaturating otherwise. Has not been using her incentive spirometer, flutter valve per pulmonology recommendations. She states she has been quite sleepy and has been unable to do so. Discussed with RT, will educate patient on how to use it and obtain peak flows. Exam Data for Last 24 hours Vital signs and Labs for Last 24 Hours: Temp Pulse Resp BP Pulse Ox O2 Del Method O2 Flow Rate 97.9 F 77 16 104/60 L 90 L Nasal Cannula 5 06/06/25 16:00 06/06/25 16:00 06/06/25 16:00 06/06/25 16:00 06/06/25 16:00 06/06/25 17:00 06/06/25 17:00 FiO2 45 06/04/25 12:00 Laboratory Results - last 24 hr 06/06/25 05:50: WBC 9.8 D, RBC 5.02, Hgb 14.0, Hct 42.9, MCV 85.5, MCH 27.9, MCHC 32.6, RDW 16.8, Plt Count 284, MPV 9.2, Neut % (Auto) 65.1, Lymph % (Auto) 26.7, [place] % (Auto) 6.6, Eos % (Auto) 0.8, Baso % (Auto) 0.4, Neut # (Auto) 6.4, Lymph # (Auto) 2.6, [place] # (Auto) 0.6, Eos # (Auto) 0.1, Baso # (Auto) 0.0, Sodium 137, Potassium 3.4 L, Chloride 99, Carbon Dioxide 33 H, Anion Gap 8.4, BUN 29 H, Creatinine 1.00, Estimated Creat Clear 53, Estimated GFR 56 L, Est GFR ( Amer) 68, Glucose 75, Calcium 8.7, Magnesium 1.8, Total Bilirubin 0.3, AST 38 H, ALT 24, Alkaline Phosphatase 90, Total Protein 6.8, Albumin 3.6, Globulin 3.2, Albumin/Globulin Ratio 1.1 I & O for Last 24 hours: Intake & Output 06/03/25 06/04/25 06/05/25 06/06/25 23:59 23:59 23:59 23:59 Intake Total 1150.000 / 5001.499 0386 / 1339 570 / 930 1080 / 1080 Output Total 1550 / 1550 145 / 5 2069 Balance 1150.000 / 1372.000 -331 / -211 -880 / -1095 -990 / -990 Weight 63.503 kg 62.2 kg 58.8 kg 60.583 kg Microbiology Reports for the Last 24 Hours: Microbiology 06/05/25 10:46 Sputum - Expectorated Sputum Gram Stain - Final Constitutional Constitutional: no acute distress *Routine HEENT Exam Head: Present normocephalic Eye: Present EOMI and PERRL ENT: Present mucous membranes moist *Routine Neck Exam Neck: Present supple; Absent lymphadenopathy *Routine Respiratory Exam Respiratory: Present CTA bilaterally *Routine Cardiovascular Exam Cardiovascular: Present RRR *Routine Abdominal Exam Abdominal: Present soft and normoactive bowel sounds; Absent tenderness *Routine Extremities Exam Extremities: Absent cyanosis, clubbing or edema *Routine Skin Exam Skin: Present warm; Absent rash *Routine Neurological Exam Neurological: Present alert and oriented X3 Assessment and Plan *Assessment and plan (1) Acute hypoxic respiratory failure: Status: Acute Category: Medical Code(s): J96.01 - Acute respiratory failure with hypoxia (2) NSTEMI (non-ST elevated myocardial infarction): Status: Acute Category: Medical Code(s): I21.4 - Non-ST elevation (NSTEMI) myocardial infarction (3) Multiple sclerosis: Status: Acute Category: Medical Code(s): G35 - Multiple sclerosis (4) Pulmonary hypertension: Status: Acute Category: Medical Code(s): I27.20 - Pulmonary hypertension, unspecified (5) RVF (right ventricular failure): Status: Acute Category: Medical Code(s): I50.810 - Right heart failure, unspecified Plan Vivi Mueller is a 65-year-old female with a medical history significant for multiple sclerosis presented with shortness of breath and was admitted for acute hypoxic respiratory failure. #Acute hypoxic respiratory failure #HFpEF exacerbation #RV failure #Pulmonary hypertension #Rhinovirus ? Presented with shortness of breath, BNP 7330, with evidence of volume overload and pulmonary hypertension on CTA chest. No pulmonary embolism. ? Initially required Vapotherm, weaned to nasal cannula. ? Initially there was concern for multiple sclerosis flare, given IV Solu-Medrol 1 g x1. However, patient denies any focal neurological symptoms for MS. Will hold off on further Solu-Medrol. ? ECHO 06/04/2025 shows moderately reduced RV function with septal flattening suggestive of RV failure/RV volume overload. ? Continue IV Lasix 40 mg daily, spironolactone 25 mg. Patient diuresing well, unable to obtain accurate I/O's due to PureWick intermittently leaking in bed. ? Patient continues to require 5 L today, though patient states she feels better today. Lungs clear to auscultation bilaterally. Patient does have underlying pulmonary hypertension on CTA, likely contributing. ? Repeat CXR today showed bibasilar opacities, more consistent with atelectasis rather than infection/edema as WBC is stable and diuresing well. ? Discussed with pulmonology today, recommend encouraging incentive spirometer and flutter valve. Patient has not been using this as prescribed, discussed with RT to reeducate patient on how to use it and obtain peak flows. ? Pulmonology following, continue doxycycline 100 mg twice daily day 3/5. Follow-up sputum culture. ? Will give an additional IV Lasix 40 mg this afternoon given persistent hypoxia, follow-up response. ? Wean oxygen as tolerated, baseline room air. ? Follow-up morning CMP. ? Patient will need close follow-up for sleep study on an outpatient basis given RV failure/pulmonary hypertension. ? Kidney function stable, creatinine 1.0, GFR 53. #NSTEMI #Prediabetes ? Presented with shortness of breath, troponins peaked at 0.11, EKG without acute ischemic changes. ? Cardiology consulted, tentatively recommending [facility] before discharge. ? Continue Plavix 75 mg (allergic to aspirin), therapeutic Lovenox. ? A1c 6.2%, LDL 66, low TSH, high free T4. #Hyperthyroidism, iatrogenic #History of hypothyroidism/Lucinda disease ? TSH undetectable, free T4 elevated. Patient states she has been taking her Synthroid 150 mcg as prescribed, not more than prescribed. ? Will hold off on further Synthroid during admission. Will decrease dose on discharge. ? Follow-up free T4 tomorrow. ? Initially started on propranolol, but no evidence of thyroid storm so discontinued. #Acute on chronic hypercarbic respiratory failure #30 pack smoking history ? VBG initially showed hypercapnia pCO2 58, but compensated pH. ? Improved with Solu-Medrol, breathing treatments. Will hold off on further Solu-Medrol now, lung exam normal. ? Pulmonology following, continue doxycycline 100 mg twice daily day /5. ? Continue DuoNebs every 6 hours. ? Nicotine patch as needed. ? Patient states she has tested negative for COPD on PFTs previously. #Multiple sclerosis ? Chronic issue, no focal signs of exacerbation. Follow-up with neurology. #Hypertension ? Hold home amlodipine as BP soft. Plan to discontinue home triamterene/hydrochlorothiazide given concomitant Lasix/spironolactone. #History of DVT ? Therapeutic Lovenox as above. #Anxiety/depression ? Continue home sertraline. Full code DVT prophylaxis: Therapeutic Lovenox as above
[2025-06-06] MEDS: PRAVASTATIN 40MG TAB 40 MG PO (21:34)
[2025-06-07] VITALS (27 sets, daily range): BP systolic 95–138; BP diastolic 53–91; PULSE 58–90; RESP 12–22; TEMP 36.4–36.8; O2SAT 90–99; BMI 20.9
[2025-06-07] MEDS: NICOTINE 21MG/24HR PATCH 21 MG TD ×2 (00:08→23:40)
[2025-06-07] MEDS: OXYCODONE 10MG W/APAP 325MG TABLET 1 EACH PO ×2 (00:08→23:45)
[2025-06-07] MEDS: ALUMINUM/MAGNESIUM/SIMETHICONE 30ML UDC 30 ML PO (06:09)
[2025-06-07] MEDS: IPRATROPIUM/ALBUTEROL 3 ML NEB IH ×2 (06:16→23:19)
[2025-06-07 06:32] LABS: Hematocrit 46.9 % (37.0-47.0); Hemoglobin 14.7 g/dL (12.2-16.2); Immature Granulocytes % 0.4 %; Mean Corpuscular HGB Conc 31.3 g/dL (31.8-35.4); Mean Corpuscular Hemoglobin 26.8 pg (27.0-31.2); Mean Corpuscular Volume 85.4 fl (81-99); Nucleated Red Blood Cells % 0 %; Platelet Count 299 K/mm3 (142-424); Red Blood Count 5.49 M/mm3 (4.20-5.40); Red Cell Distribution Width-SD 51.7 fL; White Blood Count 8.9 K/mm3 (4.8-10.8)
[2025-06-07 06:51] LABS: Alanine Aminotransferase 24 U/L (12-78); Albumin Level 3.6 g/dl (3.5-5.0); Albumin/Globulin Ratio 1.1 (1.1-1.8); Alkaline Phosphatase 94 U/L (38-126); Anion Gap 8.5 mEq/L (5-15); Aspartate Amino Transferase 33 U/L (14-36); Bilirubin,Total 0.3 mg/dl (0.2-1.3); Blood Urea Nitrogen 32 mg/dl (7-17); Calcium 8.5 mg/dl (8.4-10.2); Carbon Dioxide 33 mmol/L (22.0-30.0); Chloride 100 mmol/L (98-107); Creatinine Clearance Estimated 55 mL/min (50-200); Creatinine,Serum 1.00 mg/dl (0.52-1.04); Estimated Glomerular Filt Rate 56 ml/min (>60); GFR (African American) 68 ML/MIN (>60); Globulin 3.2 g/dL (1.3-3.2); Glucose 84 mg/dl (74-100); Magnesium 1.8 mg/dl (1.6-2.3); Potassium 3.5 mmoL/L (3.5-5.1); Sodium 138 mmol/L (136-145); Total Protein,Serum 6.8 g/dl (6.3-8.2)
[2025-06-07 07:13] LABS: Free T4 (Free Thyroxine) 1.05 ng/dl (0.78-2.19)
[2025-06-07] MEDS: FLUTICASONE PROP 50MCG NASAL SPRAY 16GM 1 SPRAY NS (09:00)
--- NOTE | 2025-06-07 09:32 | P.PN_ITS ---
Subjective *Date: 06/07/25 *Time: 16:03 Interval history: No acute respiratory vents over the weekend. Pulmonology Exam Inpatient Vital signs and Labs for Last 24 Hours: Temp Pulse Resp BP Pulse Ox O2 Del Method O2 Flow Rate 97.5 F L 81 22 95/57 L 90 L Nasal Cannula 5 06/07/25 04:00 06/07/25 07:31 06/07/25 07:31 06/07/25 07:31 06/07/25 07:31 06/07/25 07:31 06/07/25 07:31 FiO2 45 06/04/25 12:00 Laboratory Results - last 24 hr 06/07/25 06:13: WBC 8.9, RBC 5.49 H, Hgb 14.7, Hct 46.9, MCV 85.4, MCH 26.8 L, MCHC 31.3 L, RDW 16.5, Plt Count 299, MPV 9.5, Neut % (Auto) 54.8, Lymph % (Auto) 34.7, Benzie % (Auto) 7.4, Eos % (Auto) 1.8, Baso % (Auto) 0.9, Neut # (Auto) 4.9, Lymph # (Auto) 3.1, Benzie # (Auto) 0.7, Eos # (Auto) 0.2, Baso # (Auto) 0.1, Sodium 138, Potassium 3.5, Chloride 100, Carbon Dioxide 33 H, Anion Gap 8.5, BUN 32 H, Creatinine 1.00, Estimated Creat Clear 55, Estimated GFR 56 L , Est GFR ( Amer) 68, Glucose 84, Calcium 8.5, Magnesium 1.8, Total Bilirubin 0.3, AST 33, ALT 24, Alkaline Phosphatase 94, Total Protein 6.8, Albumin 3.6, Globulin 3.2, Albumin/Globulin Ratio 1.1, Free T4 1.05 Temp Pulse Resp BP Pulse Ox O2 Del Method O2 Flow Rate 97.6 F 68 16 127/65 89 L Vapotherm 40 06/04/25 08:00 06/04/25 12:00 06/04/25 11:01 06/04/25 11:01 06/04/25 11:15 06/04/25 11:15 06/04/25 11:15 FiO2 45 06/04/25 11:15 Laboratory Results - last 24 hr 06/03/25 15:37: WBC 11.2 H, RBC 5.17, Hgb 14.3, Hct 44.3, MCV 85.7, MCH 27.7, MCHC 32.3, RDW 17.0, Plt Count 291, MPV 9.5, Neut % (Auto) 77.8, Lymph % (Auto) 12.8, Benzie % (Auto) 7.5, Eos % (Auto) 0.1, Baso % (Auto) 1.3, Neut # (Auto) 8.7 H, Lymph # (Auto) 1.4, Benzie # (Auto) 0.8, Eos # (Auto) 0.0, Baso # (Auto) 0.1, VBG pH 7.37, VBG pCO2 49.1, VBG pO2 41.8 H, VBG HCO3 27.9, VBG Total CO2 29.4 H, VBG O2 Saturation 76.6 H, VBG Base Excess 2.7 H, VBG Lactic Acid 1.9, Sodium 138, Potassium 3.2 L, Chloride 99, Carbon Dioxide 34 H, Anion Gap 8.2, BUN 29 H, Creatinine 1.10 H, Estimated Creat Clear 52, Estimated GFR 50 L, Est GFR ( Amer) 61, Glucose 163 H, Calcium 7.9 L, Magnesium 1.7, Total Bilirubin 0.4, AST 53 H, ALT 25, Alkaline Phosphatase 98, Troponin I 0.03, NT-Pro-B Natriuret Pep 7330 H, Total Protein 7.2, Albumin 3.9, Globulin 3.3 H, Albumin/Globulin Ratio 1.2, TSH < 0.02 L, Free T4 2.44 H 06/03/25 18:50: VBG pH 7.34, VBG pCO2 58.0 H, VBG pO2 56.9 H, VBG HCO3 30.7 H, VBG Total CO2 32.4 H, VBG O2 Saturation 88.1 H, VBG Base Excess 4.9 H, VBG Lactic Acid 3.5 H 06/03/25 18:57: Chlamy pneumoniae PCR Not detected, Adenovirus (PCR) Not detected, B. pertussis DNA (PCR) Not detected, Coronavirus OC43 (PCR) Not detected, Coronavirus HKU1 (PCR) Not detected, Coronavirus 229E (PCR) Not detected, SARS-CoV-2 (PCR) Not detected, Coronavirus NL63 (PCR) Not detected, Human Metapneumovir PCR Not detected, Influenza A (H1) PCR Not detected, Influ A (H1N1/09) PCR Not detected, Influenza A (H3) PCR Not detected, Influenza Type A (PCR) Not detected, Influenza Type B (PCR) Not detected, M. pneumoniae (PCR) Not detected, Parainfluenza 1 (PCR) Not detected, Parainfluenza 2 (PCR) Not detected, Parainfluenza 3 (PCR) Not detected, Parainfluenza 4 (PCR) Not detected, RSV (PCR) Not detected, Entero/Rhino (PCR) Detected A 06/03/25 19:10: Troponin I 0.04 H 06/03/25 21:31: VBG pH 7.39, VBG pCO2 50.2, VBG pO2 75.8 H, VBG HCO3 29.4, VBG Total CO2 30.9 H, VBG O2 Saturation 94.7 H, VBG Base Excess 4.3 H, VBG Lactic Acid 3.5 H, Troponin I 0.05 H 06/03/25 22:56: Lactate 3.5 H 06/04/25 00:35: Procalcitonin 0.208 06/04/25 01:42: Lactate 1.4, Troponin I 0.09 H 06/04/25 05:04: C-Reactive Protein 41.9 H 06/04/25 05:06: WBC 14.4 H D, RBC 4.90, Hgb 13.5, Hct 41.3, MCV 84.3, MCH 27.6, MCHC 32.7, RDW 16.7, Plt Count 268, MPV 10.1, Neut % (Auto) 92.3 H, Lymph % (Auto) 5.6 L, Benzie % (Auto) 1.2 L, Eos % (Auto) 0.0 L, Baso % (Auto) 0.2, Neut # (Auto) 13.3 H, Lymph # (Auto) 0.8, Benzie # (Auto) 0.2, Eos # (Auto) 0.0, Baso # (Auto) 0.0, Sodium 139, Potassium 3.6, Chloride 101, Carbon Dioxide 29, Anion Gap 12.6, BUN 25 H, Creatinine 1.00, Estimated Creat Clear 57, Estimated GFR 56 L, Est GFR ( Amer) 68, Glucose 158 H, Calcium 9.1, Troponin I 0.11 H I & O for Labs for Last 24 Hours: Intake & Output 06/04/25 06/05/25 06/06/25 06/07/25 23:59 23:59 23:59 23:59 Intake Total 1219 / 1339 570 / 930 1620 / 1860 780 / 780 Output Total 1550 / 1550 1450 / 2025 3370 / 3370 350 / 350 Balance -331 / -211 -880 / -1095 -1750 / -1510 430 / 430 Weight 137 lb 2.04 oz 129 lb 10.109 oz 133 lb 9 oz 133 lb 8.896 oz Intake & Output 06/01/25 06/02/25 06/03/25 06/04/25 23:59 23:59 23:59 23:59 Intake Total 1150.000 / 1372.000 564 / 564 Balance 1150.000 / 1372.000 564 / 564 Weight 140 lb 137 lb 2.04 oz Microbiology Reports for the Last 24 Hours: Microbiology 06/05/25 10:46 Sputum - Expectorated Sputum Gram Stain - Final 06/05/25 10:46 Sputum - Expectorated Sputum Sputum Culture - Final Constitutional: Present mild distress Head: Present normocephalic and atraumatic ENT: Present normal exam, normal oropharynx and mucous membranes moist Neck: Present normal inspection and full ROM Respiratory: Present rhonchi and able to speak in complete sentences; Absent prolonged expiratory phase or diminished air movement Cardiac: Present S1/S2, Tachycardia and radial pulses present GI: Present soft and distention; Absent tenderness or guarding Rectal (female): Present deferred (female): Present deferred Skin: Present intact; Absent cyanosis or jaundice Neuro: Present alert, awake and oriented x 3 Extremities: Present normal inspection; Absent clubbing or cyanosis Psychiatric: Present normal affect and cooperative Assessment and Plan *Assessment and plan (1) Acute hypoxic respiratory failure: Status: Acute Category: Medical Code(s): J96.01 - Acute respiratory failure with hypoxia (2) Viral pneumonia: Status: Acute Category: Medical Code(s): J12.9 - Viral pneumonia, unspecified Plan Ms. Mueller is a 65-year-old female with reported history of greater than [id number] smoking history, multiple sclerosis, DVT presented to the ER with worsening respiratory distress and pulmonary was called for further evaluation and management. Afebrile. Hemodynamically stable. Mild neutrophilic predominant leukocytosis. Blood gas upon admission no evidence of hypercarbic respiratory failure. Comprehensive comprehensive respiratory viral PCR panel positive for enterorhinovirus. CTA PE protocol upon admission no obvious evidence of pulmonary embolism. No dense consolidative/airspace changes noted. Bilateral upper lobe septal thickening noted concerning for volume overload. Subpleural interstitial changes likely from dependent atelectasis. No other consolidative/airspace changes. Dilated pulmonary artery noted. Emphysematous changes noted. Patient predominant complaint include generalized weakness with no focal neurological deficit. Overall patient presentation from the respiratory standpoint is not consistent with multiple sclerosis exacerbation. Significant improvement in the noted respiratory distress, weaned to 4 L nasal cannula. However patient received 1 g of steroids in the emergency department. Interval Update: No acute respiratory events over the weekend. However patient continued to be needing oxygen supplementation at 4 to 5 L. . Patient denies any worsening cough and productive phlegm. Continue to complaining of sinus issues. Patient received adequate diuresis with no significant improvement in her oxygen requirement Chest x-ray from yesterday concerning for worsening pulmonary infiltrates. Chest x-ray from this afternoon no significant worsening of the previously noted concerning interstitial infiltrate/airspace disease ABG from today hypoxic respiratory failure with a pH of 7.4 and pCO2 51.1 and pCO2 of 60.9. On 4 L nasal cannula. It is concerning the patient continued needing oxygen supplementation while she admits not needing oxygen supplementation prior to this hospital admission. Plan: -Change antibiotics to levofloxacin 750mg daily. Continue DuoNebs every 6 hours and Pulmicort Q12 scheduled Continue oxygen supplementation to maintain O2 saturation goal of 90% or above, wean as tolerated No need for steroids from pulmonary standpoint for the concerning MS exacerbation. Incentive spirometry and flutter valve Closely monitor patient respiratory status # For the other noted concerning findings including dilated PE and possible pulmonary hypertension, will follow as an outpatient basis. # Thank you for involving pulmonary in this patient care. Will continue to follow.
[2025-06-07] MEDS: BACLOFEN 10MG TABLET 10 MG PO ×3 (10:14→22:08)
[2025-06-07] MEDS: CHOLECALCIFEROL 1,000 UNITS (25MCG) TABLET 125 MCG PO (10:14)
[2025-06-07] MEDS: FUROSEMIDE 40MG/4ML VIAL 40 MG IV ×2 (10:15→17:18)
[2025-06-07] MEDS: SERTRALINE 100MG TABLET 100 MG PO (10:15)
[2025-06-07] MEDS: CLOPIDOGREL 75MG TAB 75 MG PO (10:15)
[2025-06-07] MEDS: DOXYCYCLINE HYCL 100 MG TABLET PO (10:15)
[2025-06-07] MEDS: SPIRONOLACTONE 25MG TABLET 25 MG PO (10:15)
[2025-06-07] MEDS: GABAPENTIN 300MG CAPSULE 300 MG PO ×3 (10:15→22:08)
--- NOTE | 2025-06-07 10:32 | IR_ITS ---
APPROVED REPORT Patient Location: Inpatient PROCEDURES Right heart catheterization Left heart catheterization Left ventriculogram Selective coronary angiogram Drug-eluting stent deployment to the proximal and mid LAD in a contiguous manner Intravascular ultrasound to the proximal and mid LAD INDICATION Acute non-ST elevation myocardial infarction, Coronary artery disease, Pulmonary hypertension, Bi-ventricular congestive heart failure, Complex intervention requiring IVUS guidance, Informed consent was obtained prior to the procedure. COMPLICATIONS NONE Estimated Blood Loss: LESS THAN 10 ML TECHNIQUE One percent lidocaine was used to anesthetize the right anterior aspect of the right wrist. The right radial artery was accessed via the Seldinger technique and a 6 [place]inean hydrophilic sheath was placed in the right radial artery. Following this one percent lidocaine was used to anesthetize the right anterior aspect of the right neck. The right internal jugular vein was accessed via the Seldinger technique and a 7 [place]inean sheath was placed in the right internal jugular vein. Following this an arterial cocktail was administered using 3000U heparin, 2.5 mg verapamil, 1mg Lidocaine and 800mcg nitroglycerin into the right radial sheath. A JL3 catheter was used to perform left heart catheterization left ventriculogram and selective coronary angiography while a [place]-Renée catheter was used to perform right heart catheterization. Saturations were obtained in the pulmonary artery and right atrium. At the end the diagnostic angiogram therapeutic heparin was administered giving a therapeutic ACT and the guide catheter was placed in left main artery followed by Choice PT extra-support wire placed distally in the LAD. A 4 mm x 18 mm [place] frontier stent was deployed at 16 rainer reducing the stenosis. There was some angiographic ambiguity therefore intravascular ultrasound probe was advanced which demonstrated there was an area of heavy calcification which was not fully expanded. Because of this a 4 mm x 12 mm noncompliant balloon was deployed at 20 rainer in the proximal and midportion of the stent. Repeat angiography demonstrated there was a persistent lesion proximal to the stent therefore a 4 mm x 18 mm drug-eluting stent was placed proximal to the for stent yet still overlapping and deployed at 20 rainer. Intravascular ultrasound probe was advanced which demonstrated much improved and better expansion and apposition of the stent through the calcified atherosclerotic plaque areas. There was excellent proximal distal transitioning. After achieving excellent intragraft results the apparatus was removed the sheath was removed and hemostasis was achieved using TR banding patient was transferred to the postop boarding in stable condition. SUSANNA II flow was present at the beginning of the procedure with SUSANNA-3 flow at the end of the procedure involving the LAD ANGIOGRAPHIC RESULTS The left main artery Normal The left anterior descending artery Has a proximal calcified concentric 70% stenosis. The LAD is large and wraps the apex The circumflex artery Large and dominant with 20% smooth stenosis in the first obtuse marginal artery. The second obtuse marginal artery has proximal 60 and mid vessel 50 and 70% stenoses. Third obtuse marginal artery is patent however accompanied by SUSANNA II flow distally The right coronary artery Small nondominant and has proximal concentric 50% followed by an 80% stenosis with additional mid vessel 80% stenoses. The vessel is small and does not reach the left ventricle The HUGGINS ventriculogram reveals Preserved at 50% with mild anterior wall hypokinesis The left ventricular end-diastolic pressure 10 mmHg Right atrial pressure 5 mmHg Pulmonary artery pressure 42/22 mmHg Pulmonary artery occlusion pressure 14 mmHg Right atrial saturation 72% Pulmonary artery saturation 71% Aortic saturation 98% Hemoglobin 14.7 Cardiac output 4 L/min IMPRESSION Severe proximal LAD disease as described above Successful stent to the proximal LAD severe disease reduced to 0% with 2 contiguous drug-eluting stents Moderate to severe stenoses in the second obtuse marginal artery which is best managed medically Severe disease in the proximal and mid vestigial nondominant right coronary artery which is best managed medically Preserved ejection fraction at 50% with mild regional wall motion abnormality Mild to moderate pulmonary hypertension Normal left-sided filling pressures No evidence of intra cardial pulmonary shunt PLAN 1. Dual antiplatelet therapy 2. Cardiac rehabilitation 3. Avoidance of tobacco products 4. Factor modification 5. LDL less than 55 to be achieved with high intensity statin 6. Currently patient appears to be euvolemic based on filling pressures. Clinical correlation is advised Electronically signed by : Maurilio Mitchell MD 06/07/2025 14:59:00
--- NOTE | 2025-06-07 10:48 | EXP.CARD.PN ---
Subjective Subjective Date: 06/07/25 Time: 09:30 Principal diagnosis: nonstemi, SOB Interval history: This is a 65-year-old white female who was admitted for acute hypoxic respiratory failure secondary to viral pneumonia in the setting of a mass. Patient had an elevated troponin consistent with a nonstemi. She has a history of MS for 20 to 30 years which is a relapsing, remitting variant. Typically resolves with outpatient steroids. She has a lifelong smoker, 1.5 packs/day. Recently presented to cardiology in [place] for preoperative evaluation for right shoulder surgery. She does also have a history of DVT right lower extremity in 2013 and remains on low-dose Eliquis for this. Patient states for the past several weeks she has had productive cough and shortness of breath. Has been on 2 different rounds of antibiotics but states her symptoms are not improving. She has been very short of breath over the last few days prior to admission. She states that this was severe. She states that she got very weak and fatigued and was unable to care for herself. A neighbor came over and checked her oxygen level which was reportedly 61% and called EMS. She was found to have rhinovirus and hypoxic respiratory failure requiring Vapotherm. Cardiology was consulted because she had a serial rise in her troponin 0.04, 0.05, 0.09, 0.11. proBNP was 7330, CRP 41, lactate 3.5. She states that her shortness of breath has improved over the weekend, but still present and she is still currently requiring 5 L of oxygen via nasal cannula. She denies any chest pain or pressure. She denies any lower extremity edema. She denies any fever, chills, nausea, vomiting or diarrhea. Exam Data for Last 24 hours Vital signs and Labs for Last 24 Hours: Temp Pulse Resp BP Pulse Ox O2 Del Method O2 Flow Rate 97.5 F L 81 22 95/57 L 90 L Nasal Cannula 5 06/07/25 04:00 06/07/25 07:31 06/07/25 07:31 06/07/25 07:31 06/07/25 07:31 06/07/25 07:31 06/07/25 07:31 FiO2 45 06/04/25 12:00 Laboratory Results - last 24 hr 06/07/25 06:13: WBC 8.9, RBC 5.49 H, Hgb 14.7, Hct 46.9, MCV 85.4, MCH 26.8 L, MCHC 31.3 L, RDW 16.5, Plt Count 299, MPV 9.5, Neut % (Auto) 54.8, Lymph % (Auto) 34.7, Tucker % (Auto) 7.4, Eos % (Auto) 1.8, Baso % (Auto) 0.9, Neut # (Auto) 4.9, Lymph # (Auto) 3.1, Tucker # (Auto) 0.7, Eos # (Auto) 0.2, Baso # (Auto) 0.1, Sodium 138, Potassium 3.5, Chloride 100, Carbon Dioxide 33 H, Anion Gap 8.5, BUN 32 H, Creatinine 1.00, Estimated Creat Clear 55, Estimated GFR 56 L, Est GFR ( Amer) 68, Glucose 84, Calcium 8.5, Magnesium 1.8, Total Bilirubin 0.3, AST 33, ALT 24, Alkaline Phosphatase 94, Total Protein 6.8, Albumin 3.6, Globulin 3.2, Albumin/Globulin Ratio 1.1, Free T4 1.05 I & O for Last 24 hours: Intake & Output 06/04/25 06/05/25 06/06/25 06/07/25 23:59 23:59 23:59 23:59 Intake Total 1219 / 1339 570 / 930 1620 / 1860 780 / 780 Output Total 1550 / 1550 1450 / 2025 3370 / 3370 350 / 350 Balance -331 / -211 -880 / -1095 -1750 / -1510 430 / 430 Weight 137 lb 2.04 oz 129 lb 10.109 oz 133 lb 9 oz 133 lb 8.896 oz Microbiology Reports for the Last 24 Hours: Microbiology 06/05/25 10:46 Sputum - Expectorated Sputum Gram Stain - Final 06/05/25 10:46 Sputum - Expectorated Sputum Sputum Culture - Final Constitutional Constitutional: no acute distress and cooperative *Routine HEENT Exam Eye: Present PERRL *Routine Respiratory Exam Respiratory: Present CTA bilaterally and normal respiratory effort; Absent accessory muscle use, wheezes or crackles *Routine Cardiovascular Exam Cardiovascular: Present RRR, Normal S1 and Normal S2; Absent murmur, gallop or rubs *Routine Abdominal Exam Abdominal: Present soft; Absent tenderness *Routine Extremities Exam Extremities: Present pulses intact; Absent cyanosis or edema *Routine Skin Exam Skin: Present intact; Absent erythema or wounds *Routine Neurological Exam Neurological: Present alert and oriented X3 Routine Psychiatric Exam Psychiatric: Present cooperative Progress Note: A&P Assessment and plan (1) NSTEMI (non-ST elevated myocardial infarction): Status: Acute (2) CAD in [place] artery: Status: Acute (3) Atypical angina: Status: Acute (4) Acute hypoxic respiratory failure: Status: Acute (5) Viral pneumonia: Status: Acute (6) Multiple sclerosis: Status: Acute (7) Pulmonary hypertension: Status: Acute (8) RVF (right ventricular failure): Status: Acute (9) Dyspnea: Status: Acute Assessment and Plan Assessment and Plan for All Diagnoses:: Plan: 1. The patient was admitted to the hospital with viral pneumonia and rhinovirus. Will defer management of this to the hospitalist. 2. The patient did have an elevated troponin consistent with a non-STEMI. Will plan to proceed with left cardiac catheterization today to evaluate her coronary artery disease due to her non-STEMI known CAD on CTA chest and atypical angina. 3. Will also proceed with right cardiac catheterization at the time of her left cardiac catheterization to evaluate her pulmonary artery hypertension. Echo showed right-sided volume overload and moderate RV dilatation and an elevated RVSP of 45 to 50 mmHg. She was diuresed over the weekend but is still requiring a significant amount of oxygen. We would like to proceed with right cardiac catheterization to evaluate her intracardiac pressures to see how much more diuresis she will require. 3. The patient will be n.p.o. in preparation for left and right cardiac catheterization. 4. The patient has been educated the risk and benefits of proceeding with left and right cardiac catheterization. Patient verbalized understanding and is agreeable to proceed with the procedures. 5. Continue Plavix 75 mg daily. 6. Increase Lasix to 40 mg IV twice daily for diuresis due to pulmonary hypertension and volume overload. 7. Her blood pressure is acceptable. 8. Her LDL goal is less than 55. LDL is 66. Continue simvastatin. 9. The patient is on Eliquis for history of DVT. 10. Continue spironolactone for diuresis. 11. Further recommendations will be made pending the patient's response to treatment and the results of her left and right cardiac catheterization today. Thank you for the opportunity to help participate in the care of this patient. All recommendations and orders are per Dr. Dixon.
[2025-06-07] MEDS: SENNOSIDES 8.6MG/DOCUSATE 50MG TABLET 1 TAB PO ×2 (12:12→22:08)
--- NOTE | 2025-06-07 12:12 | XR_ITS ---
FINAL REPORT CLINICAL HISTORY: SOB COMPARISON: 06/06/2025 FINDINGS: A single PA view of the chest was obtained. The cardiac and mediastinal silhouettes are within normal limits. There are bilateral interstitial opacities that are slightly worse from the prior exam and could represent interstitial edema or pneumonia. There is no effusion or pneumothorax. IMPRESSION: Slightly worse bilateral interstitial opacities could represent interstitial edema or pneumonia. Reviewed, Interpreted and Dictated by Luisa Rodriguez MD Transcribed by Aracelis Amor Authenticated and [facility]
--- NOTE | 2025-06-07 12:12 | CA_ITS ---
FINAL REPORT CLINICAL HISTORY: smoker, SOB, resp failure, low dose eliquis daily. History of DVT in 2014 RLE. Multiple sclerosis FINDINGS: DUPLEX VENOUS SONOGRAPHY OF THE BILATERAL LOWER EXTREMITIES Multiple transverse and longitudinal scans were performed of the femoropopliteal deep venous systems, with augmentation and compression maneuvers. FINDINGS: Normal phasic flow was noted in the visualized deep venous systems. No intraluminal increased echogenicity is noted to suggest thrombus. There is normal compression and augmentation of the venous structures. No abnormal venous collaterals are seen. IMPRESSION: No evidence of deep venous thrombosis of the bilateral lower extremities. Reviewed, Interpreted and Dictated by Luisa Rodriguez MD Transcribed by Candy Yun Authenticated and [facility]
--- NOTE | 2025-06-07 13:25 | P.PN_ITS ---
Subjective *Date: 06/07/25 *Time: 13:25 Interval history: Patient states she is feeling better this morning. Still requiring 4 to 5 L oxygen during rounds. Denies chest pain. Planning for left heart cath today. No nausea or vomiting. Using incentive spirometry. Afebrile. Continues to have rhonchorous cough. Wanting to get home to her 20-year-old cat. Medical Exam Vital signs and Labs for Last 24 Hours: Vital Signs Temp Pulse Pulse Resp BP Pulse Ox O2 Del Method 06/07/25 11:55 98.2 F 81 19 97/68 L 90 L Nasal Cannula 06/07/25 11:00 Nasal Cannula 06/07/25 09:00 Nasal Cannula 06/07/25 08:00 90 06/07/25 08:00 Nasal Cannula 06/07/25 07:31 81 22 95/57 L 90 L Nasal Cannula 06/07/25 06:37 Nasal Cannula 06/07/25 06:16 65 06/07/25 06:16 65 06/07/25 06:16 90 L Nasal Cannula 06/07/25 05:00 Nasal Cannula 06/07/25 04:00 97.5 F L 63 16 101/58 L 99 Nasal Cannula 06/07/25 04:00 60 06/07/25 03:00 Nasal Cannula 06/07/25 01:00 Nasal Cannula 06/07/25 00:00 91 L Nasal Cannula 06/07/25 00:00 80 06/06/25 23:00 Nasal Cannula 06/06/25 21:00 Nasal Cannula 06/06/25 20:00 80 06/06/25 20:00 98.0 F 76 16 114/53 L 96 Nasal Cannula 06/06/25 20:00 91 L Nasal Cannula 06/06/25 19:30 Nasal Cannula 06/06/25 19:00 Nasal Cannula 06/06/25 17:00 Nasal Cannula 06/06/25 16:00 70 06/06/25 16:00 97.9 F 77 16 104/60 L 90 L Nasal Cannula 06/06/25 15:00 Nasal Cannula O2 Flow Rate 06/07/25 11:55 5 06/07/25 11:00 5 06/07/25 09:00 5 06/07/25 08:00 06/07/25 08:00 5 06/07/25 07:31 5 06/07/25 06:37 5 06/07/25 06:16 06/07/25 06:16 06/07/25 06:16 5 06/07/25 05:00 5 06/07/25 04:00 5 06/07/25 04:00 06/07/25 03:00 5 06/07/25 01:00 5 06/07/25 00:00 5 06/07/25 00:00 06/06/25 23:00 5 06/06/25 21:00 5 06/06/25 20:00 06/06/25 20:00 5 06/06/25 20:00 5 06/06/25 19:30 5 06/06/25 19:00 5 06/06/25 17:00 5 06/06/25 16:00 06/06/25 16:00 5 06/06/25 15:00 5 Intake and Output 06/06/25 06/07/25 06/07/25 23:59 07:59 15:59 Intake Total 540 / 1860 780 / 780 Output Total 2120 / 3370 350 / 900 550 / 900 Balance -1580 / -1510 430 / -120 -550 / -120 Intake: Intake, Oral Amount 540 / 1860 780 / 780 Output: Output, Urine Amount 2120 / 3370 350 / 900 550 / 900 Other: Number of Voids 0 Number of Unmeasured Voids 0 0 Weight 60.58 kg Patient Weight 06/07/25 23:59 Weight 60.58 kg Laboratory Results - last 24 hr 06/07/25 06:13: WBC 8.9, RBC 5.49 H, Hgb 14.7, Hct 46.9, MCV 85.4, MCH 26.8 L, MCHC 31.3 L, RDW 16.5, Plt Count 299, MPV 9.5, Neut % (Auto) 54.8, Lymph % (Auto) 34.7, [place] % (Auto) 7.4, Eos % (Auto) 1.8, Baso % (Auto) 0.9, Neut # (Auto) 4.9, Lymph # (Auto) 3.1, [place] # (Auto) 0.7, Eos # (Auto) 0.2, Baso # (Aut o) 0.1, Sodium 138, Potassium 3.5, Chloride 100, Carbon Dioxide 33 H, Anion Gap 8.5, BUN 32 H, Creatinine 1.00, Estimated Creat Clear 55, Estimated GFR 56 L, Est GFR ( Amer) 68, Glucose 84, Calcium 8.5, Magnesium 1.8, Total Bilirubin 0.3, AST 33, ALT 24, Alkaline Phosphatase 94, Total Protein 6.8, Albumin 3.6, Globulin 3.2, Albumin/Globulin Ratio 1.1, Free T4 1.05 I & O for Labs for Last 24 Hours: Intake & Output 06/04/25 06/05/25 06/06/25 06/07/25 23:59 23:59 23:59 23:59 Intake Total 1219 / 1339 570 / 930 1620 / 1860 780 / 780 Output Total 1550 / 1550 1450 / 2025 3370 / 3370 900 / 900 Balance -331 / -211 -880 / -1095 -1750 / -1510 -120 / -120 Weight 62.2 kg 58.8 kg 60.583 kg 60.58 kg Microbiology Reports for the Last 24 Hours: Microbiology 06/05/25 10:46 Sputum - Expectorated Sputum Gram Stain - Final 06/05/25 10:46 Sputum - Expectorated Sputum Sputum Culture - Final Constitutional: Present no acute distress, average body habitus and chronically ill appearing Head: Present atraumatic and normocephalic ENT: Present normal exam Respiratory: Present prolonged expiratory phase and rhonchi; Absent wheezes or crackles Cardiac: Present Reg Rate and Rhythm GI: Present soft and normal bowel sounds; Absent distention or tenderness Extremities: Present normal inspection and full ROM; Absent edema Comment:: Left wrist in splint Skin: Present intact; Absent erythema Neuro: Present Grossly Intact, alert, awake, oriented x 3 and moves all extremities Comment:: No focal neurologic deficit. Assessment and Plan *Assessment and plan (1) Acute hypoxic respiratory failure: Status: Acute Category: Medical Code(s): J96.01 - Acute respiratory failure with hypoxia (2) NSTEMI (non-ST elevated myocardial infarction): Status: Acute Category: Medical Code(s): I21.4 - Non-ST elevation (NSTEMI) myocardial infarction (3) Multiple sclerosis: Status: Acute Category: Medical Code(s): G35 - Multiple sclerosis (4) Pulmonary hypertension: Status: Acute Category: Medical Code(s): I27.20 - Pulmonary hypertension, unspecified (5) RVF (right ventricular failure): Status: Acute Category: Medical Code(s): I50.810 - Right heart failure, unspecified Plan Vivi Mueller is a 65-year-old female with a medical history significant for multiple sclerosis presented with shortness of breath and was admitted for acute hypoxic respiratory failure. #Acute hypoxic respiratory failure #HFpEF exacerbation #RV failure #Pulmonary hypertension #Rhinovirus, present on admission ? Presented with shortness of breath, BNP 7330, with evidence of volume overload and pulmonary hypertension on CTA chest. No pulmonary embolism. ? Initially required Vapotherm, weaned to nasal cannula. Goal sats greater than 90%. Currently on 4 to 5 L. Goal 3 L or less for stability to discharge home ? Initially there was concern for multiple sclerosis flare, given IV Solu-Medrol 1 g x1. However, patient denies any focal neurological symptoms for MS. Will hold off on further Solu-Medrol. ? ECHO 06/04/2025 shows moderately reduced RV function with septal flattening suggestive of RV failure/RV volume overload. ? Continue IV Lasix 40 mg daily, spironolactone 25 mg. Patient diuresing well, unable to obtain accurate I/O's due to PureWick intermittently leaking in bed. ? Suspect COPD given long-term smoking and CT chest findings consistent with emphysema per my review ? White count remains normal at 8.9. Discussed case with pulmonology, recommend transitioning to Levaquin to complete antibiotic course for respiratory infection -Contact precautions for rhino/enterovirus -Continue Trelegy 100 inhaler daily at pulmonology's recommendations. -Will obtain ABG during heart cath -Hemoglobin 14.7, kidney function stable with BUN 32, creatinine 1.0. Potassium 3.5, magnesium 1.8. Electrolyte replacement per protocol. -Repeat CBC, CMP, magnesium ordered for the morning ? Patient will need close follow-up for sleep study on an outpatient basis given RV failure/pulmonary hypertension. #NSTEMI #Prediabetes ? Presented with shortness of breath, troponins peaked at 0.11, EKG without acu te ischemic changes. -Discussed case with cardiology today, planning on left heart cath. Continue Plavix 75 mg daily. Patient is allergic to aspirin. Continue therapeutic Lovenox. ? A1c 6.2%, LDL 66, low TSH, high free T4. #Hyperthyroidism, iatrogenic #History of hypothyroidism/Lucinda disease ? TSH undetectable, free T4 elevated. Patient states she has been taking her Synthroid 150 mcg as prescribed, not more than prescribed. ? Will hold off on further Synthroid during admission. Will decrease dose on discharge. ? Follow-up free T4 tomorrow. ? Initially started on propranolol, but no evidence of thyroid storm so discontinued. #Acute on chronic hypercarbic respiratory failure #30 pack smoking history ? VBG initially showed hypercapnia pCO2 58, but compensated pH. ? Improved with Solu-Medrol, breathing treatments. Will hold off on further Solu-Medrol now, lung exam normal. ? Pulmonology following, continue doxycycline 100 mg twice daily day 3/5. ? Continue DuoNebs every 6 hours. ? Nicotine patch as needed. ? Patient states she has tested negative for COPD on PFTs previously, unsure when that was performed or the accuracy given her current presentation and risk factors and image findings as stated above. #Multiple sclerosis: Chronic issue, no focal signs of exacerbation. Follow-up with neurology. Complicates all aspects of her care #Hypertension: Hold home amlodipine as BP soft. Plan to discontinue home triamterene/hydrochlorothiazide given concomitant Lasix/spironolactone. #History of DVT: Therapeutic Lovenox as above. #Anxiety/depression: Continue home sertraline. Full code DVT prophylaxis: Therapeutic Lovenox as above Cardiac diet
[2025-06-07] MEDS: HEPARIN 1,000 UNITS/500ML NS (CATH LAB) 3000 UNIT IV (13:42)
[2025-06-07] MEDS: VERAPAMIL 2.5MG/ML 2ML VIAL 2.5 MG IV (13:43)
[2025-06-07] MEDS: HEPARIN 1,000 UNITS/ML 10ML VIAL (CATH LAB) 5000 UNIT IV (13:43)
[2025-06-07] MEDS: LIDOCAINE 1% 10ML MDV 10 ML IJ (13:43)
[2025-06-07] MEDS: MIDAZOLAM HCL 1MG/ML 5ML VIAL 1 MG IV (13:44)
[2025-06-07] MEDS: NITROGLYCERIN 800MCG/8ML SYR (CATH LAB) 800 MCG IA (13:44)
[2025-06-07] MEDS: FENTANYL 100MCG/2ML VIAL 50 MCG IV (13:44)
[2025-06-07] MEDS: 0.9 % SODIUM CHLORIDE 500 ML 25 ML IV (13:44)
[2025-06-07 14:01] LABS: ABG HCO3 32.3 mmhg (22.0-26.0); ABG PH 7.42 mmol/L (7.35-7.45); ABG PO2 60.9 mmhg (80-100); ABG TCO2 33.8 mmhg (23-27); Lactate Arterial 1.4 mmol/L (0.4-2.0)
[2025-06-07 14:05] LABS: ABG PCO2 51.1 mmhg (35.0-45.0)
[2025-06-07] MEDS: IOPAMIDOL-370 (76%);100ML BOTTLE 100 ML IV (15:10)
[2025-06-07 15:12] LABS: CATHL Activated Clotting Time 315 SEC (74-125); CATHL Arterial O2 SAT 71.4 % (90-100); CATHL Venous O2 SAT 72.4 % (75-80)
[2025-06-07] MEDS: LEVOFLOXACIN/D5W 750 MG/150 ML 750 MG/150 ML PIGGYBACK 100 MG IV (15:25)
[2025-06-07] MEDS: POLYETHYLENE GLYCOL 3350 17 GM PACKET PO (18:02)
--- NOTE | 2025-06-07 18:20 | PC.NURSE ---
patient is a/o x4, currently on 4LNC with O2 sats above 90%. patient had right and left heart cath this shift with 2 stents to the LAD. VSS. PW in place. no c/o chest pain. bowel regimen ordered per MD. IV lasix given. tolerating diet. PT evaluated patient. call light within reach, no further requests at this time.
--- NOTE | 2025-06-07 19:04 | PC.NURSE ---
radial band removed at 1900, telfa and tegaderm applied, dressing C/D/I
[2025-06-07] MEDS: PRAVASTATIN 40MG TAB 40 MG PO (22:09)
[2025-06-08] VITALS (12 sets, daily range): BP systolic 81–106; BP diastolic 56–72; PULSE 69–100; RESP 16–19; TEMP 36.4–36.6; O2SAT 81–92; BMI 20.9
--- NOTE | 2025-06-08 00:02 | PC.NURSE ---
Addendum entered by Haylee Matthew RN 06/08/25 01:51: Late Entry (for 01:11): patient's oxygen saturations increased to 90% to 91% (periodically) on Venturi mask application. Addendum entered by Haylee Matthew RN 06/08/25 00:57: Patient's oxygen saturations are maintaining 88% to 89% on 6 L of oxygen via nasal cannula. Venturi mask (50% of oxygen, 15 L oxygen flow) applied at this time per MD. Respirations 14 breaths per minute. Addendum entered by Haylee Matthew RN 06/08/25 00:16: Patient is attempting to rest in bed; observed to have eyes closed and no apparent distress. Original Note: During vital sign assessment (due at midnight, taken at around 23:40), the patient's oxygen saturations were found to be 86% to 87% maintained on 5 L of humidified oxygen via nasal cannula (checked with both the automatic datascope and the patient's continuous pulse ox, the readings were the same). Patient received a breathing treatment prior at 23:19 per NOV from Umberto LOWRY. She has not had any complaints of shortness of breath or any difficulties with her breathing (respirations are even and unlabored) but does report having an occasional cough and congestion in her nose (Flonase ordered daily per NOV). Amos Hua MD was paged at 23:57 to inform him about the patient's decreased oxygen saturations. He stated to try titrating the patient's oxygen flow to 6 L first for any improvement in her oxygen saturations and check for an accurate pleth; if the patient's oxygen saturations have not improved after titration of oxygen flow, he stated to apply 50% of oxygen via Venturi mask as necessary. Currently, the patient's oxygen flow via nasal cannula was increased to 6 L, oxygen saturations are reading 89%.
--- NOTE | 2025-06-08 04:00 | PC.NURSE ---
Patient is alert and oriented x4. She was observed to be resting in bed with eyes closed, respirations even and unlabored, and no apparent distress throughout the majority of the night. Visitor remained at the bedside since 23:00. Patient complained of having chronic right shoulder pain this shift, of which has been treated per MAR. Right radial cath site and right intrajugular cath site remain dressed; no drainage or bleeding noted. Radial pulse +2. Brace/splint noted to left wrist. Patient requires vast assistance during transfers (history of multiple sclerosis). Clear lungs heard upon auscultation; loose, intermittent cough reported. On telemetry + continuous pulse ox. Incentive spirometer usage at the bedside. Patient remains on a Venturi mask (15 L) due to decreased oxygen saturations during resting periods; she required 4 L to 5 L of oxygen via nasal cannula while awake. Continues to deny shortness of breath or difficulty breathing. Repositioning/turning in bed as appropriately. A female purewick remains in place for voiding needs. Scheduled medications were administered per NOV. Breathing treatments every six hours, administered by RTs. Soft blood pressures noted. At this time, the patient is resting in bed without any further complaints. No new needs thus far. Call light within reach. Droplet precautions ongoing for Entero/Rhinovirus.
[2025-06-08 05:48] LABS: Alanine Aminotransferase 22 U/L (12-78); Albumin Level 3.7 g/dl (3.5-5.0); Albumin/Globulin Ratio 1.2 (1.1-1.8); Alkaline Phosphatase 84 U/L (38-126); Anion Gap 10.0 mEq/L (5-15); Aspartate Amino Transferase 32 U/L (14-36); Bilirubin,Total 0.3 mg/dl (0.2-1.3); Blood Urea Nitrogen 31 mg/dl (7-17); Calcium 8.9 mg/dl (8.4-10.2); Carbon Dioxide 35 mmol/L (22.0-30.0); Chloride 95 mmol/L (98-107); Creatinine Clearance Estimated 50 mL/min (50-200); Creatinine,Serum 1.10 mg/dl (0.52-1.04); Estimated Glomerular Filt Rate 50 ml/min (>60); GFR (African American) 61 ML/MIN (>60); Globulin 3.2 g/dL (1.3-3.2); Glucose 75 mg/dl (74-100); Magnesium 1.9 mg/dl (1.6-2.3); Potassium 4.0 mmoL/L (3.5-5.1); Sodium 136 mmol/L (136-145); Total Protein,Serum 6.9 g/dl (6.3-8.2)
[2025-06-08 05:53] LABS: Hematocrit 47.6 % (37.0-47.0); Hemoglobin 14.9 g/dL (12.2-16.2); Immature Granulocytes % 0.7 %; Mean Corpuscular HGB Conc 31.3 g/dL (31.8-35.4); Mean Corpuscular Hemoglobin 26.8 pg (27.0-31.2); Mean Corpuscular Volume 85.6 fl (81-99); Nucleated Red Blood Cells % 0 %; Platelet Count 303 K/mm3 (142-424); Red Blood Count 5.56 M/mm3 (4.20-5.40); Red Cell Distribution Width-SD 51.5 fL; White Blood Count 10.2 K/mm3 (4.8-10.8)
[2025-06-08] MEDS: IPRATROPIUM/ALBUTEROL 3 ML NEB IH ×2 (06:07→10:59)
[2025-06-08] MEDS: GABAPENTIN 300MG CAPSULE 300 MG PO (08:09)
[2025-06-08] MEDS: CLOPIDOGREL 75MG TAB 75 MG PO (08:09)
[2025-06-08] MEDS: FUROSEMIDE 40MG/4ML VIAL 40 MG IV (08:10)
[2025-06-08] MEDS: CHOLECALCIFEROL 1,000 UNITS (25MCG) TABLET 125 MCG PO (08:10)
[2025-06-08] MEDS: BACLOFEN 10MG TABLET 10 MG PO ×2 (08:10→12:42)
[2025-06-08] MEDS: SERTRALINE 100MG TABLET 100 MG PO (08:11)
[2025-06-08] MEDS: SPIRONOLACTONE 25MG TABLET 25 MG PO (08:11)
[2025-06-08] MEDS: SENNOSIDES 8.6MG/DOCUSATE 50MG TABLET 1 TAB PO (08:12)
[2025-06-08] MEDS: FLUTICASONE PROP 50MCG NASAL SPRAY 16GM 1 SPRAY NS (08:12)
--- NOTE | 2025-06-08 09:55 | HMH.PTEV ---
Physical Therapy Evaluation Rehab PT IP Evaluation Start: 06/07/25 11:06 Freq: ONCE Status: Active Protocol: Document 06/08/25 09:47 KIESHA (Rec: 06/08/25 09:54 KIESHA [id number]) Subjective/History History History Per H&P: Ms. Mueller is a 65-year-old female who presents to the ER with complaint of shortness of breath. Patient has a past medical history of multiple sclerosis, DVT, and recent femur fracture. Patient states she started to feel more short of breath yesterday. She states she has taken 2 rounds of azithromycin. She reports productive cough as well as nausea. She states the nausea that is probably from her current medications. She reports she is a 1.5 pack a day smoker. She denies alcohol recreational drug use. No home O2 use. Patient denies fever/chills, congestion, runny nose, chest pain, abdominal pain, vomiting, diarrhea, constipation, headache, lightheadedness, dizziness, or syncope. Hospitalist service contacted for admission due to patient being waitlisted at [facility] and for further monitoring of elevated troponin and respiratory failure. Subjective Subjective PLOF: IND with functional mobility intermittently using rollator and platform RW. Home: Pt lives in a handicap assessible apartment. Pt can have her boyfriend stay with her 22/04 if needed. Pt believes she is at her baseline with mobility. [facility] How much help from another person do you currently need... Turning from your None back to your side while in a flat bed without using bedrails? Moving from lying on None back to sitting on the side of a flat bed without using bedrails? Moving to and from a None bed to a chair ( including a wheelchair)? Standing up from a None chair using your arms? (e.g., wheelchair, bedside chair) Walking in hospital A little room? Climbing 3-5 steps A little with a railing? Mobility Score 22 Mobility Level [facility] Mobility 7 Walk 25 feet or more Mobility Calculator Rehab PT IP Eval Objective Appearance Patient Behavior Appropriate,Cooperative Patient Orientation Person,Situation Difficulty following none instructions Speech Pattern Clear Ambulation Patient Able to Yes Ambulate Ambulation Observation IP General Gait Wide Based Gait Pattern Observation Ambulation Distance 10 (feet) Ambulation Assistive None Device Ambulation Ability Supervision/Stand by Balance Ability to Arise Able, uses arms to help Sitting Balance Steady, safe Standing Balance Steady, wide stance Dynamic Sitting Good Balance Ability Dynamic Standing Fair Balance Ability Transfers Bed Transfer Ability Independent Sit to Stand Bed Independent Transfer Ability Rehab PT IP prob,goals,plan Problems Date of Evaluation: 06/08/25 Rehab Potential Rehab Potential Innapropriate for Skilled Therapy Discharge Plan PT Discharge Plan Pt most appropriate to d/c home when deemed medically necessary d/t current level of mobility, home set-up, and family support. Pt not appropriate for skilled acute care PT at this time d/t pt?s mobility being at baseline. Eval Complexity Eval Charge Codes 69498 - Moderate Complexity PHYSICIAN CERTIFICATION: I certify the specified therapy services for Vivi Mueller are required, authorized, and reviewed every 30 days.
--- NOTE | 2025-06-08 10:08 | SW/DCPLANNER ---
Per PT no needs at this time.
--- NOTE | 2025-06-08 10:42 | P.PN_ITS ---
Subjective Subjective Date: 06/08/25 Time: 08:30 Principal diagnosis: nonstemi, SOB Interval history: This is a 64-year-old white female who was admitted for acute hypoxic respiratory failure and being treated for bilateral pneumonia. She also had an elevated troponin consistent with a non-STEMI. She underwent left cardiac catheterization yesterday and had 2 stents to the LAD. She has persistent severe disease to the obtuse marginal artery and right coronary artery which are both best managed medically. She will remain on Plavix at this time. No aspirin due to an allergy. The patient remains on 5 L nasal cannula. This morning she denies any chest pain or pressure. She states her shortness of breath continues to improve. She still has a cough but this is also improving. She denies any fever, chills, nausea, vomiting or diarrhea. Exam Data for Last 24 hours Vital signs and Labs for Last 24 Hours: Temp Pulse Resp BP Pulse Ox O2 Del Method O2 Flow Rate 97.6 F 80 19 100/62 L 92 L Room Air 6 06/08/25 07:53 06/08/25 08:00 06/08/25 07:53 06/08/25 07:53 06/08/25 07:53 06/08/25 09:00 06/08/25 08:00 FiO2 50 06/08/25 06:28 Laboratory Results - last 24 hr 06/07/25 14:00: ABG pH 7.42, ABG pCO2 51.1 H, ABG pO2 60.9 L, ABG HCO3 32.3 H, ABG Total CO2 33.8 H, ABG O2 Saturation 91, ABG Base Excess 7.7 H, ABG Lactate 1.4 06/07/25 14:27: Activated Clotting Time 315 H*, ABG O2 Sat (Measured) 71.4 L, POC VBG O2 Sat ([place]) 72.4 L 06/08/25 05:20: WBC 10.2, RBC 5.56 H, Hgb 14.9, Hct 47.6 H, MCV 85.6, MCH 26.8 L , MCHC 31.3 L, RDW 16.8, Plt Count 303, MPV 9.5, Neut % (Auto) 58.8, Lymph % (Auto) 30.6, [place] % (Auto) 7.4, Eos % (Auto) 1.8, Baso % (Auto) 0.7, Neut # (Auto) 6.0, Lymph # (Auto) 3.1, [place] # (Auto) 0.8, Eos # (Auto) 0.2, Baso # (Auto) 0.1, Sodium 136, Potassium 4.0, Chloride 95 L, Carbon Dioxide 35 H, Anion Gap 10.0, BUN 31 H, Creatinine 1.10 H, Estimated Creat Clear 50, Estimated GFR 50 L, Est GFR ( Amer) 61, Glucose 75, Calcium 8.9, Magnesium 1.9, Total Bilirubin 0.3, AST 32, ALT 22, Alkaline Phosphatase 84, Total Protein 6.9, Albumin 3.7, Globulin 3.2, Albumin/Globulin Ratio 1.2 I & O for Last 24 hours: Intake & Output 06/05/25 06/06/25 06/07/25 06/08/25 23:59 23:59 23:59 23:59 Intake Total 570 / 930 1620 / 1860 930 / 1180 370 / 370 Output Total 1450 / 2025 3370 / 3370 2150 / 2150 900 / 900 Balance -880 / -1095 -1750 / -1510 -1220 / -970 -530 / -530 Weight 129 lb 10.109 oz 133 lb 9 oz 133 lb 8.896 oz 133 lb 6.4 oz Microbiology Reports for the Last 24 Hours: Microbiology 06/05/25 10:46 Sputum - Expectorated Sputum Gram Stain - Final 06/05/25 10:46 Sputum - Expectorated Sputum Sputum Culture - Final Constitutional Constitutional: no acute distress and cooperative *Routine HEENT Exam Eye: Present PERRL *Routine Respiratory Exam Respiratory: Present CTA bilaterally and normal respiratory effort; Absent accessory muscle use, wheezes or crackles *Routine Cardiovascular Exam Cardiovascular: Present RRR, Normal S1 and Normal S2; Absent murmur, gallop or rubs *Routine Abdominal Exam Abdominal: Present soft; Absent tenderness *Routine Extremities Exam Extremities: Present pulses intact; Absent cyanosis or edema *Routine Skin Exam Skin: Present intact; Absent erythema or wounds *Routine Neurological Exam Neurological: Present alert and oriented X3 Routine Psychiatric Exam Psychiatric: Present cooperative Progress Note: A&P Assessment and plan (1) Viral pneumonia: Status: Acute (2) NSTEMI (non-ST elevated myocardial infarction): Status: Acute (3) CAD in [place] artery: Status: Acute (4) RVF (right ventricular failure): Status: Acute (5) Pulmonary hypertension: Status: Acute (6) Nicotine dependence: Status: Acute (7) Acute hypoxic respiratory failure: Status: Acute Assessment and Plan Assessment and Plan for All Diagnoses:: Plan: 1. The patient was admitted to the hospital with viral pneumonia and rhinovirus. Will defer management of this to the hospitalist. 2. The patient did have an elevated troponin consistent with a non-STEMI. She underwent left cardiac catheterization yesterday with 2 stents placed to the LAD. She has persistent severe disease to the obtuse marginal and right coronary artery which is best medical clean managed. Continue Plavix. No aspirin due to an allergy. 3. Right cardiac catheterization showed that the patient is euvolemic. Will stop IV Lasix and start her on Lasix 40 mg p.o. daily. 4. Start Jardiance 10 mg daily for HFpEF as well. 5. The patient has known COPD and acute hypoxic respiratory failure. Will defer management of this to pulmonology. 6. Her blood pressure is acceptable, but on the low side. Too low to start a beta-mary or Entresto at this time. 7. Her LDL goal is less than 55. LDL is 66. Stop simvastatin and start Lipitor 40 mg p.o. nightly. 8. The patient is on Eliquis for history of DVT. 9. Continue spironolactone for diuresis. 10. No further recommendations at this time from a cardiac standpoint. When she is stable from a medical standpoint she can be discharged home. She will need to follow-up in cardiology clinic in 1 week on an outpatient basis. The patient will need to be discharged on the following cardiac medications: Plavix 70 mg daily Lasix 40 mg p.o. daily Aldactone 25 mg p.o. daily Jardiance 10 mg daily Lipitor 40 mg p.o. nightly Eliquis 2.5 mg p.o. twice daily Thank you for the opportunity to help participate in the care of this patient. All recommendations and orders are per Dr. Dixon.
[2025-06-08] MEDS: POLYETHYLENE GLYCOL 3350 17 GM PACKET PO (10:49)
[2025-06-08] MEDS: EMPAGLIFLOZIN 10MG TABLET 10 MG PO (10:49)
--- NOTE | 2025-06-08 10:58 | PC.NURSE ---
Walk test done with pt on 3L NC per MD. Pt O2 saturations walking around room on 3L NC were 85-88%. MD notified. Pt saturations back up to 91% on 3L NC at rest.
--- NOTE | 2025-06-08 10:59 | P.DS_ITS ---
General Admission date:: 06/03/25 HPI HPI HPI: Ms. Mueller is a 65-year-old female who presents to the ER with complaint of shortness of breath. Patient has a past medical history of multiple sclerosis, DVT, and recent femur fracture. Patient states she started to feel more short of breath yesterday. She states she has taken 2 rounds of azithromycin. She reports productive cough as well as nausea. She states the nausea that is probably from her current medications. She reports she is a 1.5 pack a day smoker. She denies alcohol recreational drug use. No home O2 use. Patient denies fever/chills, congestion, runny nose, chest pain, abdominal pain, vomiting, diarrhea, constipation, headache, lightheadedness, dizziness, or syncope. Hospitalist service contacted for admission due to patient being waitlisted at [facility] and for further monitoring of elevated troponin and respiratory failure. Hospital Course Hospital Course Hospital Course: Vivi Mueller is a 65-year-old female with a medical history significant for multiple sclerosis presented with shortness of breath and was admitted for acute hypoxic respiratory failure. #Acute hypoxic respiratory failure #HFpEF exacerbation #RV failure #Pulmonary hypertension #Rhinovirus, present on admission #Community-acquired pneumonia ? Presented with shortness of breath, BNP 7330, with evidence of volume overload and pulmonary hypertension on CTA chest. No pulmonary embolism. ? Initially required Vapotherm, gradually weaned to 3L nasal cannula. ? Initially there was concern for multiple sclerosis flare, given IV Solu-Medrol 1 g x1. However, patient did not have focal neurological symptoms for MS. Will hold off on further Solu-Medrol. ? ECHO 06/04/2025 shows moderately reduced RV function with septal flattening suggestive of RV failure/RV volume overload. ? Repeat CXR on 06/06/2025 showed bibasilar opacities suspicious for pneumonia and/or atelectasis. Started on levofloxacin. ? Overall, patient gradually improved with IV Lasix and spironolactone diuresis, levofloxacin, incentive spirometer/flutter valve. Patient feels much better. WBC stable, weaned to 3 L nasal cannula with appropriate saturation greater than 90%. No significant symptoms on walk test. ? Requiring 3 L nasal cannula, desaturated to 81% on room air at rest. ? Pulmonology consulted, appreciate recommendations. Started Trelegy 100. ? Discharged with Trelegy 100, levofloxacin 750 mg for 5 more days, Lasix 40 mg, spironolactone 25 mg, Jardiance 10 mg. ? Patient will need close follow-up for sleep study on an outpatient basis given RV failure/pulmonary hypertension. ? Will follow-up with pulmonology within 2 weeks. #NSTEMI #Prediabetes ? Presented with shortness of breath, troponins peaked at 0.11, EKG without acute ischemic changes. - Cardiology consulted, s/p PCI on 06/07/2025 with JOANNE x [address] Mitchell recommended other occlusive disease to be best managed medically. ? Cardiology recommended Plavix 75 mg, continue Eliquis 2.5 mg twice daily, atorvastatin 40 mg. Patient is allergic to aspirin. ? A1c 6.2%, LDL 66, low TSH, high free T4. #Hyperthyroidism, iatrogenic #History of hypothyroidism/Lucinda disease ? TSH undetectable, free T4 elevated. Patient states she has been taking her Synthroid 150 mcg as prescribed, not more than prescribed. ? Levothyroxine held during admission. Initially started on propranolol, but no evidence of thyroid storm so discontinued. ? Decreased home Synthroid from 150 mcg to 100 mcg. Will need repeat TFTs in 6 weeks. #Acute on chronic hypercarbic respiratory failure #30 pack smoking history ? VBG initially showed hypercapnia pCO2 58, but compensated pH. ? Improved with Solu-Medrol, breathing treatments. Will hold off on further Solu-Medrol now, lung exam normal. ? Pulmonology started Trelegy 100 as well. ? Patient states she has tested negative for COPD on PFTs previously, unsure when that was performed or the accuracy given her current presentation and risk factors and image findings as stated above. ? Will follow-up with pulmonology within 2 weeks. #Multiple sclerosis: Chronic issue, no focal signs of exacerbation. Follow-up with neurology. Complicates all aspects of her care #Hypertension: Hold home amlodipine as BP soft. Discontinued home triamterene/hydrochlorothiazide given concomitant Lasix/spironolactone. #History of DVT: Continue home Eliquis. #Anxiety/depression: Continue home sertraline. Total time spent on discharge: 33 minutes on chart review, counseling, documentation, and direct care with patient. Exam Data for Last 24 hours Vital signs and Labs for Last 24 Hours: Temp Pulse Resp BP Pulse Ox O2 Del Method O2 Flow Rate 97.6 F 80 19 100/62 L 81 L Room Air 6 06/08/25 07:53 06/08/25 08:00 06/08/25 07:53 06/08/25 07:53 06/08/25 10:56 06/08/25 10:56 06/08/25 08:00 FiO2 50 06/08/25 06:28 Laboratory Results - last 24 hr 06/07/25 14:00: ABG pH 7.42, ABG pCO2 51.1 H, ABG pO2 60.9 L, ABG HCO3 32.3 H, ABG Total CO2 33.8 H, ABG O2 Saturation 91, ABG Base Excess 7.7 H, ABG Lactate 1.4 06/07/25 14:27: Activated Clotting Time 315 H*, ABG O2 Sat (Measured) 71.4 L, POC VBG O2 Sat (Stanley) 72.4 L 06/08/25 05:20: WBC 10.2, RBC 5.56 H, Hgb 14.9, Hct 47.6 H, MCV 85.6, MCH 26.8 L , MCHC 31.3 L, RDW 16.8, Plt Count 303, MPV 9.5, Neut % (Auto) 58.8, Lymph % (Auto) 30.6, [place] % (Auto) 7.4, Eos % (Auto) 1.8, Baso % (Auto) 0.7, Neut # (Auto) 6.0, Lymph # (Auto) 3.1, [place] # (Auto) 0.8, Eos # (Auto) 0.2, Baso # (Auto) 0.1, Sodium 136, Potassium 4.0, Chloride 95 L, Carbon Dioxide 35 H, Anion Gap 10.0, BUN 31 H, Creatinine 1.10 H, Estimated Creat Clear 50, Estimated GFR 50 L, Est GFR ( Amer) 61, Glucose 75, Calcium 8.9, Magnesium 1.9, Total Bilirubin 0.3, AST 32, ALT 22, Alkaline Phosphatase 84, Total Protein 6.9, Albumin 3.7, Globulin 3.2, Albumin/Globulin Ratio 1.2 I & O for Last 24 hours: Intake & Output 06/05/25 06/06/25 06/07/2525 23:59 23:59 23:59 23:59 Intake Total 570 / 930 1620 / 1860 930 / 1180 370 / 370 Output Total 1450 / 2025 3370 / 3370 2150 / 2150 900 / 900 Balance -880 / -1095 -1750 / -1510 -1220 / -970 -530 / -530 Weight 58.8 kg 60.583 kg 60.58 kg 60.509 kg Microbiology Reports for the Last 24 Hours: Microbiology 06/05/25 10:46 Sputum - Expectorated Sputum Gram Stain - Final 06/05/25 10:46 Sputum - Expectorated Sputum Sputum Culture - Final Constitutional Constitutional: no acute distress *Routine HEENT Exam Head: Present normocephalic Eye: Present EOMI and PERRL ENT: Present mucous membranes moist *Routine Neck Exam Neck: Present supple; Absent lymphadenopathy *Routine Respiratory Exam Respiratory: Present CTA bilaterally *Routine Cardiovascular Exam Cardiovascular: Present RRR *Routine Abdominal Exam Abdominal: Present soft and normoactive bowel sounds; Absent tenderness *Routine Extremities Exam Extremities: Absent cyanosis, clubbing or edema *Routine Skin Exam Skin: Present warm; Absent rash *Routine Neurological Exam Neurological: Present alert and oriented X3 Results Data Completed and Pending Labs on day of discharge: Labs from last 24 hours 06/08/25 06/07/25 06/07/25 05:20 14:27 14:00 WBC 10.2 RBC 5.56 H Hgb 14.9 Hct 47.6 H MCV 85.6 MCH 26.8 L MCHC 31.3 L RDW 16.8 Plt Count 303 MPV 9.5 Neut % (Auto) 58.8 Lymph % (Auto) 30.6 Newberry % (Auto) 7.4 Eos % (Auto) 1.8 Baso % (Auto) 0.7 Neut # (Auto) 6.0 Lymph # (Auto) 3.1 Newberry # (Auto) 0.8 Eos # (Auto) 0.2 Baso # (Auto) 0.1 Activated Clotting Time 315 H* ABG pH 7.42 ABG pCO2 51.1 H ABG pO2 60.9 L ABG HCO3 32.3 H ABG Total CO2 33.8 H ABG O2 Sat (Measured) 71.4 L ABG O2 Saturation 91 ABG Base Excess 7.7 H ABG Lactate 1.4 POC VBG O2 Sat (Stanley) 72.4 L Sodium 136 Potassium 4.0 Chloride 95 L Carbon Dioxide 35 H Anion Gap 10.0 BUN 31 H Creatinine 1.10 H Estimated Creat Clear 50 Estimated GFR 50 L Est GFR ( Amer) 61 Glucose 75 Calcium 8.9 Magnesium 1.9 Total Bilirubin 0.3 AST 32 ALT 22 Alkaline Phosphatase 84 Total Protein 6.9 Albumin 3.7 Globulin 3.2 Albumin/Globulin Ratio 1.2 DS: Diagnosis Discharge Diagnosis (1) Viral pneumonia: Status: Acute Code(s): J12.9 - Viral pneumonia, unspecified (2) NSTEMI (non-ST elevated myocardial infarction): Status: Acute Code(s): I21.4 - Non-ST elevation (NSTEMI) myocardial infarction (3) CAD in [place] artery: Status: Acute Code(s): I25.10 - Atherosclerotic heart disease of [place] coronary artery without angina pectoris (4) RVF (right ventricular failure): Status: Acute Code(s): I50.810 - Right heart failure, unspecified (5) Pulmonary hypertension: Status: Acute Code(s): I27.20 - Pulmonary hypertension, unspecified (6) Nicotine dependence: Status: Acute Code(s): F17.200 - Nicotine dependence, unspecified, uncomplicated (7) Acute hypoxic respiratory failure: Status: Acute Code(s): J96.01 - Acute respiratory failure with hypoxia Meds Home Medications and Allergies Home Medications ?Medication ?Instructions ?Recorded ?Confirmed ?Type apixaban 2.5 mg tablet (Eliquis) 2.5 mg PO BID 5 06/04/25 History baclofen 10 mg tablet 10 mg PO QID 06/04/25 History cholecalciferol (vitamin D3) 125 125 mcg PO DAILY 02/2106/04/25 History mcg (5,000 unit) tablet clonazepam 1 mg tablet 1 mg PO BID 06/04/25 5 History fluticasone propionate 50 1 spray intranasal DAILY 02/2106/04/25 History mcg/actuation nasal spray,suspension gabapentin 300 mg capsule 300 mg PO QID 06/04/2506/04 History naproxen 500 mg tablet 500 mg PO BID 06/04/2506/04 History ondansetron 8 mg disintegrating 8 mg PO BID PRN Nausea 06/04/25 06/04/25 History tablet oxycodone-acetaminophen 10 mg-325 10 - 325 tab PO BID 06/04/25 06/04/25 History mg tablet pyridoxine (vitamin B6) 100 mg 100 mg PO DAILY 5 06/04/25 History tablet sertraline 100 mg tablet 100 mg PO DAILY 06/04/2502/21 History sumatriptan succinate 50 mg tablet 50 mg PO BIDP PRN m igraine 06/04/25 06/04/25 History headaches clopidogrel 75 mg tablet (Plavix) 75 mg PO DAILY #30 t abs 06/07/25 Rx atorvastatin 40 mg tablet 40 mg PO HS 30 days #30 tabs 06/08/25 Rx empagliflozin 10 mg tablet 10 mg PO DAILY 30 days #30 tabs 06/08/25 Rx (Jardiance) fluticasone fur. 100 mcg-umeclid 1 inh inhalation FERNANDO Y #60 ea 06/08/25 Rx 62.5 mcg-vilant 25 mcg inhalat.powder (Trelegy Ellipta) furosemide 40 mg tablet 40 mg PO DAILY 30 days #30 t abs 06/08/25 Rx levofloxacin 750 mg tablet 750 mg PO DAILY 5 days #5 t abs 06/08/25 Rx levothyroxine 100 mcg tablet 100 mcg PO DAILY #30 tabs 06/08/25 Rx (Synthroid) spironolactone 25 mg tablet 25 mg PO DAILY 30 days #30 tabs 06/08/25 Rx New Prescriptions to Start Prescriptions: Aren Broussard clopidogrel [Plavix] Maurilio Mitchell empagliflozin [Jardiance] Aren Candelaria [id number] [Trelegy Ellipta] Aren Candelaria furosemide Teagan,Aren levofloxacin Aren Candelaria levothyroxine [Synthroid] Aren Candelaria spironolactone Aren Candelaria Allergies Allergy/AdvReac Type Severity Reaction Status Date / Time aspirin Allergy Hives Verified 06/03/25 15:48 cefaclor (From [facility]) Allergy Rash Verified 06/03/25 15:48 floxacillin Allergy Rash Verified 06/03/25 15:48 Discharge Plan Disposition Patient Disposition: Home, Self-Care Condition: Fair Discharge Order Discharge Orders: Discharge Order (Routine); Ordered 06/08/25 Ordered By: Aren Candelaria Follow up Plan Follow up with: Tierra Lucas APRN [Nurse Practitioner, Cardiology] - 1 week Taz Gauthier MD [Physician, Pulmonology] - 1 week Renato Hwang MD [Primary Care Provider, Medical] - 1 week Prescriptions/Medication Reconciliation: New clopidogrel [Plavix] 75 mg Tablet 75 mg PO DAILY Qty: 30 6RF furosemide 40 mg Tablet 40 mg PO DAILY 30 Days Qty: 30 0RF atorvastatin 40 mg Tablet 40 mg PO HS 30 Days Qty: 30 0RF spironolactone 25 mg Tablet 25 mg PO DAILY 30 Days Qty: 30 0RF Jardiance 10 mg Tablet 10 mg PO DAILY 30 Days Qty: 30 0RF levofloxacin 750 mg tablet 750 mg PO DAILY 5 Days Qty: 5 0RF Trelegy Ellipta 100-62.5-25 mcg Blister With Device 1 inh inhalation DAILY Qty: 60 0RF levothyroxine [Synthroid] 100 mcg tablet 100 mcg PO DAILY Qty: 30 0RF Continued sertraline 100 mg tablet 100 mg PO DAILY Patient Comments: TAKE ONE TABLET BY MOUTH EVERY DAY clonazepam 1 mg tablet 1 mg PO BID Patient Comments: Take 1 tablet twice a day by oral route. oxycodone-acetaminophen 10-325 mg tablet 10 - 325 tab PO BID Patient Comments: Take 1 tablet twice a day by oral route. gabapentin 300 mg capsule 300 mg PO QID Patient Comments: Take 1 capsule by mouth 4 times daily pyridoxine (vitamin B6) 100 mg tablet 100 mg PO DAILY Patient Comments: TAKE ONE TABLET BY MOUTH EVERY DAY fluticasone propionate 50 mcg/actuation spray,suspension 1 spray INTRANASAL DAILY Patient Comments: [place] 1 spray every day by intranasal route. naproxen 500 mg tablet 500 mg PO BID Patient Comments: take 1 tablet by mouth 2 times a day cholecalciferol (vitamin D3) 125 mcg (5,000 unit) tablet 125 mcg PO DAILY Patient Comments: TAKE 1 TABLET BY MOUTH EVERY DAY Eliquis 2.5 mg tablet 2.5 mg PO BID Patient Comments: Take 1 tablet twice a day by oral route. sumatriptan succinate 50 mg tablet 50 mg PO BIDP PRN (Reason: migraine headaches) Patient Comments: Take 1 tablet twice a day by oral route as needed. ondansetron 8 mg tablet,disintegrating 8 mg PO BID PRN (Reason: Nausea) Patient Comments: DISSOLVE 1 tablet ON THE TONGUE twice a day as needed. baclofen 10 mg tablet 10 mg PO QID Patient Comments: Take 1 tablet 4 times a day by oral route. Discontinued azithromycin 250 mg tablet 250 mg PO DAILY Patient Comments: TAKE 2 TABLETS BY MOUTH ON DAY 1, THEN TAKE 1 TABLET DAILY ON DAYS 2-5 amlodipine 2.5 mg tablet 2.5 mg PO DAILY Patient Comments: TAKE ONE TABLET BY MOUTH EVERY DAY furosemide 20 mg tablet 20 mg PO DAILY Patient Comments: Take 1 tablet every day by oral route as needed for 30 days. simvastatin 20 mg tablet 20 mg PO DAILY Patient Comments: TAKE ONE TABLET BY MOUTH EVERY DAY levothyroxine [Synthroid] 150 mcg tablet 150 mcg PO DAILY Patient Comments: Take 1 tablet every day by oral route in the morning for 30 days. triamterene-hydrochlorothiazid 37.5-25 mg tablet 0.5 tab PO DAILY Patient Comments: Take 1/2 (one-half) tablet by mouth once daily Other Ambulatory Orders: Consult to Cardiac Rehabilitation (Routine) Facility: [facility] - Location: Cardiac Rehabilitation Ordered By: Maurilio Mitchell Problem Reconciliation Problems Reviewed?: Yes Patient Discharge Instructions Additional Instructions: Please follow-up with your neurologist within 2 weeks for further management of multiple sclerosis. Patient Instructions: DI for Chronic Obstructive Pulmonary Disease, DI for Cardiac Catheterization, DI for Hypokalemia, DI for Surgical Site Infection, DI for Respiratory Failure, Stop Light COPD Print Language: Trinidadian Providers Primary Care Provider: Renato Hwang Admit Provider: Rohan Hua Attending Provider: Rohan Hua
[2025-06-08] MEDS: FLUTICASONE/UMECLIDIN/VILANTER 100/62.5/25MCG INHALER 1 PUFF IH (11:48)
[2025-06-08] MEDS: LEVOFLOXACIN/D5W 750 MG/150 ML 750 MG/150 ML PIGGYBACK 100 MG IV (11:48)
--- NOTE | 2025-06-08 12:07 | CARE MANAGER ---
Patient ordered 3L supplemental O2 at discharged. Patient Choice verbally signed for Lamonte, and order/clinical has been faxed. Portable will be delivered to bedside, prior to discharge.
--- NOTE | 2025-06-10 10:03 | SW/DCPLANNER ---
Phoned patient x2 and each time left message with name and number on it. Brandon DIANE Bowl Attendant
== END 2025-06-08 14:02 | disposition home or self-care (01) | DRG 981 ==
LOC: ER 22:28 → ICU 06-04 06:16 → 2ND 06-05 15:08
PROVIDERS: Internal Medicine; Internal Medicine Pulmonary Disease; Nurse Practitioner Family; Student in an Organized Health Care Education/Training Program; Admitting Provider Internal Medicine Adolescent Medicine; Emergency Provider Emergency Medicine; PCP Emergency Medicine; Visit Provider Internal Medicine Adolescent Medicine
PROC: 4A023N7 Measurement of Cardiac Sampling and Pressure, Left Heart, Percutaneous Approach (ICD-10-PCS; CPT 93452; principal; 2025-06-07 12:15)
PROC: 4A023N6 Measurement of Cardiac Sampling and Pressure, Right Heart, Percutaneous Approach (ICD-10-PCS; CPT 93451; 2025-06-07 12:15)
DX: J12.89 Other viral pneumonia (principal); I21.4 Non-ST elevation (NSTEMI) myocardial infarction; J96.01 Acute respiratory failure with hypoxia; I50.33 Acute on chronic diastolic (congestive) heart failure; J96.22 Acute and chronic respiratory failure with hypercapnia; J44.0 Chronic obstructive pulmonary disease with (acute) lower respiratory infection; F17.210 Nicotine dependence, cigarettes, uncomplicated; I27.20 Pulmonary hypertension, unspecified; I11.0 Hypertensive heart disease with heart failure; G35 Multiple sclerosis; E05.80 Other thyrotoxicosis without thyrotoxic crisis or storm; F32.A Depression, unspecified; E83.51 Hypocalcemia; F41.9 Anxiety disorder, unspecified; I25.10 Atherosclerotic heart disease of native coronary artery without angina pectoris; E78.00 Pure hypercholesterolemia, unspecified; E87.6 Hypokalemia; B97.89 Other viral agents as the cause of diseases classified elsewhere; B97.10 Unspecified enterovirus as the cause of diseases classified elsewhere; R73.03 Prediabetes; Z86.718 Personal history of other venous thrombosis and embolism; Z79.890 Hormone replacement therapy; Z79.01 Long term (current) use of anticoagulants; Z79.899 Other long term (current) drug therapy; Z88.6 Allergy status to analgesic agent; Z88.1 Allergy status to other antibiotic agents; Z71.6 Tobacco abuse counseling
CPT/HCPCS: 0223U; 36415; 36600; 71045; 71275; 80048; 80053; 80061; 82803; 82810; 83036; 83605; 83735; 83880; 84145; 84439; 84443; 84484; 85025; 85347; 86140; 87070; 87205; 93005; 93306; 93970; 94640; 94761; 97162; 97165; 99152; 99153; 99285; C1725; C1769; C1874; C1894; J0612; J0696; J1200; J1644; J1650; J1938; J1956; J2003; J2250; J2919; J3010; J7040; J7050; J7120; Q9967

== ENCOUNTER 2025-06-15 07:46 | Outpatient (CLI) | payer MEDICAID, SELFPAY ==
--- OUTSIDE RECORDS SUMMARY | 2025-05-26 12:45 | XMS_ITS | Encounter Summary ---
[facility] [address] [place] [address] Care Team Providers Care Metallurgical Lab Technician Name Role Phone Renato Hwang MD Primary Care Provider [phone] Reason for Visit * Reason Comments Hypertension Edema Encounter Details Date Type Department Care Team (Latest Contact Info) Description 05/26/2025 12:45 PM EDT Office Visit [facility] [address] [place] [address] Gerri Mchugh APRN [address] [place], [place] [id number] Preop cardiovascular exam (Primary Dx); Smoker; History of DVT (deep vein thrombosis); Acute pain of right shoulder Social History Tobacco Use Types Packs/Day Years Used Date Smoking Tobacco: Every Day Cigarettes 1.5 46.3 Started: 02/28/1979 Smokeless Tobacco: Never Alcohol Use Standard Drinks/Week Comments Never 0 (1 standard drink = 0.6 oz pur e alcohol) Comments Unknown Sex and Gender Information Value Date Recorded Sex Assigned at Female 05/13/2025 1:37 PM EDT Legal Sex Female 10:19 AM EDT Gender Identity Not on file Sexual Orientation Straight 05/13/2025 1: 37 PM EDT documented as of this encounter Last Filed Vital Signs Vital Sign Reading Time Taken Comments Blood Pressure 118/68 05/26/2025 1:08 PM EDT Pulse 84 05/26/2025 1:08 PM EDT Temperature - - Respiratory Rate 19 05/26/2025 1:08 PM EDT Oxygen Saturation 96% 05/26/2025 1:08 PM EDT Inhaled Oxygen Concentration - - Weight - - Height 170.2 cm (5' 7.01 ) 05/26/2025 1:08 PM ED T Body Mass Index - - documented in this encounter Progress Notes * Gerri Mchugh APRN - 05/26/2025 12:45 PM EDT Images from the original note were not included. Date: 05/26/2025 Name: Vivi Mueller : 1960 PCP: Renato Hwang MD REF: No ref. provider found [facility] Provider Note ..Hypertension and Edema History of Present Illness The patient is a 67-year-old female who presents for follow-up. She has not yet undergone her shoulder surgery due to a fall that resulted in a femur fracture. This incident led to an exacerbation of her multiple sclerosis (MS), causing paralysis in her left hand. Although she has regained some mobility in her hand, she is cautious about overexertion. She is eager to proceed with the shoulder surgery and has completed all necessary preoperative clearances. She will have one more consultation with Dr. Ayala before the surgery is scheduled. The delay in scheduling the surgery was to allow sufficient time for her femur to heal. She reports no complications from the anesthesia or any infections post-surgery. She denies any chest pain, SOA, edema, palpitations, or syncope. She is in her wheelchair related to her MS. PAST SURGICAL HISTORY: Femur replacement surgery No specialty comments available. There are no discontinued medications. Allergies Allergen Reactions Aspirin Anaphylaxis, Hives and Unknown (See Comments) Cefaclor Hives and Unknown (See Comments) Ofloxacin Hives, Itching and Unknown (See Comments) Current Outpatient Medications: amLODIPine (NORVASC) 2.5 MG tablet, Take 1 tablet by mouth Daily., Disp: , Rfl: baclofen (LIORESAL) 10 MG tablet, Take 1 tablet 4 times a day by oral route., Disp: , Rfl: Biotin 5000 MCG capsule, , Disp: , Rfl: Cholecalciferol (vitamin D3) 125 MCG (5000 UT) tablet tablet, Take 1 tablet by mouth Daily., Disp: , Rfl: clonazePAM (KlonoPIN) 1 MG tablet, Take 1 tablet by mouth 2 (Two) Times a Day., Disp: , Rfl: docusate sodium (COLACE) 250 MG capsule, , Disp: , Rfl: Eliquis 5 MG tablet tablet, Take 1 tablet twice a day by oral route as directed. (Patient taking differently: Take 0.5 tablets by mouth Every 12 (Twelve) Hours.), Disp: , Rfl: Ferrous Sulfate ER (Slow Fe) 45 MG tablet controlled-release, , Disp: , Rfl: fluticasone (FLONASE) 50 MCG/ACT nasal spray, [place] 1 spray every day by intranasal route., Disp: ,Rfl: gabapentin (NEURONTIN) 300 MG capsule, Take 1 capsule by mouth 4 (Four) Times a Day., Disp: , Rfl: ondansetron ODT (ZOFRAN-ODT) 8 MG disintegrating tablet, DISSOLVE 1 tablet ON THE TONGUE twice a day as needed., Disp: , Rfl: oxyCODONE-acetaminophen (PERCOCET) 10-325 MG per tablet, Take 1 tablet by mouth Every 12 (Twelve) Hours., Disp: , Rfl: promethazine (PHENERGAN) 25 MG tablet, take 1 tablet by mouth 4 times a day as needed, Disp: , Rfl: Pyridoxine HCl (Vitamin B6) 100 MG tablet, Take 1 tablet by mouth Daily., Disp: , Rfl: sertraline (ZOLOFT) 100 MG tablet, Take 1 tablet by mouth Daily., Disp: , Rfl: simvastatin (ZOCOR) 20 MG tablet, Take 1 tablet by mouth Daily., Disp: , Rfl: SUMAtriptan (IMITREX) 50 MG tablet, Take 1 tablet by mouth Every 12 (Twelve) Hours., Disp: , Rfl: Synthroid 150 MCG tablet, Take 1 tablet every day by oral route in the morning for 30 days., Disp: , Rfl: triamterene-hydrochlorothiazide (MAXZIDE-25) 37.5-25 MG per tablet, Take 0.5 tablets by mouth Daily., Disp: , Rfl: Past Medical History: Diagnosis Date Cluster headache Difficulty walking HL (hearing loss) Hyperlipidemia Hypertension Migraine MS (multiple sclerosis) Patient Active Problem List Diagnosis MS (multiple sclerosis) Blistering Migraine Essential hypertension Hyperlipidemia HL (hearing loss) Difficulty walking Cluster headache Preop cardiovascular exam Abnormal EKG History of DVT (deep vein thrombosis) Acute pain of right shoulder Smoker Family History Problem Relation Age of Onset Migraines Mother Stroke Mother family history includes Migraines in her mother; Stroke in her mother. Social History Socioeconomic History Marital status: Tobacco Use Smoking status: Every Day Current packs/day: 1.50 Average packs/day: 1.5 packs/day for 46.2 years (69.4 ttl pk-yrs) Types: Cigarettes Start date: 02/28/1979 Smokeless tobacco: Never Vaping Use Vaping status: Never Used Substance and Sexual Activity Alcohol use: Never Drug use: Never Sexual activity: Yes Partners: Male control/protection: Post-menopausal, Tubal ligation Vital Signs: BP 118/68 (BP Location: Right arm, Patient Position: Sitting, Cuff Size: Adult) Pulse 84 Resp 19 Ht 170.2 cm (67.01 ) SpO2 96% BMI 21.61 kg/m?? Estimated body mass index is 21.61 kg/m?? as calculated from the following: Height as of this encounter: 170.2 cm (67.01 ). Weight as of 01/12/25: 62.6 kg (138 lb). Physical Exam Vitals reviewed. Constitutional: Appearance: Normal appearance. She is well-developed. HENT: Head: Normocephalic and atraumatic. Eyes: General: No scleral icterus. Pupils: Pupils are equal, round, and reactive to light. Cardiovascular: Rate and Rhythm: Normal rate and regular rhythm. Heart sounds: Normal heart sounds. No murmur heard. Pulmonary: Breath sounds: Normal breath sounds. No wheezing or rhonchi. Musculoskeletal: Right lower leg: No edema. Left lower leg: No edema. Skin: General: Skin is warm and dry. Capillary Refill: Capillary refill takes less than 2 seconds. Coloration: Skin is not cyanotic. Nails: There is no clubbing. Neurological: Mental Status: She is alert and oriented to person, place, and time. Motor: Weakness present. Gait: Gait abnormal. Psychiatric: Mood and Affect: Mood normal. Behavior: Behavior is cooperative. Thought Content: Thought content normal. Physical Exam General: Patient appears well-healed from previous surgery, no signs of distress. Skin: Well-healed surgical scars noted. Results Assessment and Plan Diagnoses and all orders for this visit: 1. Preop cardiovascular exam (Primary) 2. Smoker 3. History of DVT (deep vein thrombosis) 4. Acute pain of right shoulder Assessment & Plan - No chest pain -Insurance denied pre-op cardiac testing -Did well with femur repair -Can follow-up PRN Recommendations: ER if symptoms increase and Report if any new/changing symptoms immediately Follow Up Return if symptoms worsen or fail to improve. Patient or patient ocean import representative verbalized consent for the use of Ambient Listening during the visit with Gerri Mchugh APRN for chart documentation. 05/26/2025 14:39 EDT Gerri Mchugh APRN 05/26/2025 Please note that this explicitly excludes time spent on other separate billable services such as performing procedures or test interpretation, when applicable. This note was created using dictation software which occasionally transcribes nonsensical phrases. Please contact the provider if any clarification is needed. documented in this encounter Plan of Treatment Not on file documented as of this encounter Visit Diagnoses Diagnosis Preop cardiovascular exam- Primary Pre-operative cardiovascular examination Smoker Tobacco use disorder History of DVT (deep vein thrombosis) Acute pain of right shoulder documented in this encounter Care Teams Metallurgical Lab Technician Relationship Specialty Start Date End Date Renato Hwang MD [address] [place] [address] PCP - General Emergency Medicine 04/10/24 documented as of this encounter
--- OUTSIDE RECORDS SUMMARY | 2025-06-15 07:50 | XMS_ITS | Encounter Summary ---
Author Organization [facility] Address [address] [place] [address] Care Team Providers Care Aquatics Director Name Role Phone Cindy Chow MD Primary Care Provider [phone] Encounter Details Date Type Department Care Team ([facility] st Contact Info) Description 04/09/2023 Orders Only External Location [address] [place] [address] Provider, External Social History Tobacco Use Types [...] documented as of this encounter Care Teams Aquatics Director Relationship Specialty Start Date End Date Cindy Chow MD [address] [place] [address] [address] [place] [address] PCP - General 02/10/21 documented as of this encounter
--- OUTSIDE RECORDS SUMMARY | 2025-06-15 07:50 | XMS_ITS | Clinical Summary ---
Author Organization [facility] ([place], [place], [place], [place]) Address [address] [place] [address] Care Team Providers Care Alumni Relations Coordinator Name Role Phone Unavailable Primary Care Provider Unavailabl e Encounters Date Type Department Care Team Description 06/04/2025 Telephone [facility] [address] [place] [address] Shamir Cruz MD Advice Only from Last 3 Months Social History Tobacco Use Types Packs/Day Years Used Date Smoking Tobacco: Never Assessed Comments Unknown Sex and Gender Information Value Date Recorded Sex Assigned at Not on file Legal Sex Female 2:25 PM CDT Gender Identity Not on file Sexual Orientation Not on file Plan of Treatment Not on file Insurance [facility]
--- OUTSIDE RECORDS SUMMARY | 2025-06-15 07:50 | XMS_ITS | Encounter Summary ---
Author Organization [facility] Address [address] [place] [address] Care Team Providers Care Director Of Primary Name Role Phone Renato Hwang MD Primary Care Provider [phone] Reason for Visit * Reason Onset Date Comments Isidra MCHUGH - CORBY 06/04/2025 Encounter Details Date Type Department Care Team (Late st Contact Info) Description 06/04/2025 Telephone [facility] [address] [place] [address] Gerri Mchugh APRN [address] [place] [address] Isidra MCHUGH - RECORDS Social [...] process and was unsuccessful Caller: SHABBIR FROM [facility] Relationship to patient: [facility] Best call back number: [phone] Patient is needing: SHABBIR CALLED REQUESTING LAST OFFICE NOTE AND EKG FOR PT. THESE CAN BE FAXED [phone]. documented in this encounter Plan of Treatment Not on file documented as of this encounter Visit Diagnoses Not on filedocumented in this encounter Care Teams Director Of Primary Relationship Specialty Start Date End Date Renato Hwang MD [address] [place] [address] PCP - General Emergency Medicine 04/10/24 documented as of this encounter
--- OUTSIDE RECORDS SUMMARY | 2025-06-15 07:50 | XMS_ITS | Referral Summary ---
Author Organization [facility] ([place], [place], [place], [place]) Address [address] [place] [address] Care Team Providers Care Superintendent Transmission Name Role Phone Unavailable Primary Care Provider Unavailabl e Encounters Date Type Department Care Team Description 06/04/2025 Telephone [facility] [address] [place] [address] Shamir Cruz MD Advice Only from Last 3 Months Social History Tobacco Use Types Packs/Day Years Used Date Smoking Tobacco: Never Assessed Comments Unknown Sex and Gender Information Value Date Recorded Sex Assigned at Not on file Legal Sex Female 2:25 PM CDT Gender Identity Not on file Sexual Orientation Not on file Plan of Treatment Not on file Insurance [facility]
--- OUTSIDE RECORDS SUMMARY | 2025-06-15 07:51 | XMS_ITS | Clinical Summary ---
Author Organization [facility] Address [address] [place] [address] Care Team Providers Care Patient Support Assistant Name Role Phone Cindy Chow MD Primary Care Provider [phone] Allergies Active Allergy Reactions Criticality Noted Date [...] 150 MCG tablet 02/28/2023 Active HYDROcodone-acet aminophen ([place]) 7.5-325 MG tablet 02/23/2023 Active gabapentin (Neurontin) [...] 04/02/2025 Telephone [facility] Emergency Department [address] [place] [address] Delfina Sutherland MD 04/01/2025 4:43 PM EDT - 04/01/2025 8:09 PM EDT Emergency [facility] Emergency Department [address] [place] [address] Maryjane Tejada MD MS (multiple sclerosis) ([facility]) (Primary Dx); Numbness of right hand; Hx of multiple sclerosis ([facility]) Discharge Disposition: Home or Self Care 04/01/2025 Travel 03/28/2025 Orders Only External Location [address] [place] [address] Provider, External 03/28/2025 Orders Only External Location [address] [place] [address] Provider, External from Last 3 Months Immunizations [...] - Risk 60-74 years 1-dose series) 2022 [id number] Vaccine ( - season) 2025 08/15/2022, 08/22/2021, [...] 2 Hour, Plasma (04/01/2025 7:03 PM EDT) [facility] Troponin T, High Sensitivity, 2 Hour 18(H) <14 ng/L 04/01/2025 7:24 PM EDT [facility] Troponin Delta 0 <10 ng/L 04/01/2025 7:24 PM EDT [facility] Troponin Delta Interpretation Not Significant 04/01/2025 7:24 PM EDT [facility] Comment:Not Significant. No acute change in troponin observed between the baseline and 2 hour samples. Blood Venous blood specimen / Unknown Venipuncture / Unknown 04/01/2025 7:03 PM EDT 04/01/2025 7:05 PM EDT [place] [facility] BLOOD ORDERABLES Final Resul t [facility] [address] [place] [address] * XR Chest 1 View (04/01/2025 5:56 [...] ECG Atrial Rate 68 BPM MUSE ECG NC Interval 160 ms MUSE ECG QRSD Interval 68 ms MUSE ECG QT Interval 410 ms MUSE ECG QTC Interval 435 ms MUSE ECG P [place] 28 degrees MUSE ECG R [place] 74 degrees MUSE ECG T Wave [place] 47 degrees MUSE ECG Diagnosis Poor data [...] 1/2 Differentiation (04/01/2025 5:00 PM EDT) Pathologist [facility] HIV 1 & 2 Antibody/Antigen Screen Non Reactive Non Reactive 04/01/2025 5:55 PM EDT [facility] Comment:Screening for HIV 1 & 2 antibodies, and P24 antigen is NONREACTIVE. No confirmatory testing is required. Blood Venous blood specimen / Unknown Venipuncture / Unknown 04/01/2025 5:00 PM EDT 04/01/2025 5:15 PM EDT [place] [facility] BLOOD ORDERABLES Final Resul t [facility] [address] [place] [address] * (ABNORMAL) Troponin now and 120 min (04/01/2025 5:00 PM EDT) Pathologist [facility] Troponin T, High Sensitivity, 0 Hour 18(H) <14 ng/L 04/01/2025 5:29 PM EDT [facility] Blood Venous blood specimen / Unknown Venipuncture / Unknown 04/01/2025 5:00 PM EDT 04/01/2025 5:03 PM EDT [place] [facility] BLOOD ORDERABLES Final Resul t Performing Organization Address [facility] Co de Phone Number [facility] [address] [place] [address] * APTT (PTT) (04/01/2025 5:00 PM EDT) aPTT 27 25 - 35 sec 04/01/2025 5:20 PM EDT [facility] Blood Venous blood specimen / Unknown Venipuncture / Unknown 04/01/2025 5:00 PM EDT 04/01/2025 5:03 PM EDT [place] [facility] BLOOD ORDERABLES Final Resul t Performing Organization Address [facility] Phone Number [facility] [address] [place] [address] * Prothrombin Time (04/01/2025 5:00 PM EDT) Prothrombin Time 13.6 12.0 - 14.3 sec 04/01/2025 5:19 PM EDT [facility] INR 1.1 0.9 - 1.1 04/01/2025 5:19 PM EDT [facility] Blood Venous blood specimen / Unknown Venipuncture / Unknown 04/01/2025 5:00 PM EDT 04/01/2025 5:03 PM EDT Narrative [facility] - 04/01/2025 5:19 PM EDT OPTIMAL INR RANGES FOR PATIENT ON ORAL ANTICOAGULANT THERAPY Prevention of venous thromboembolism INR 2.0 to 3.0 In patients with heart disease: Atrial fibrillation INR 2.0 to 3.0 Valvular heart disease INR 2.0 to 3.0 Tissue heart valves INR 2.0 to 3.0 Mechanical prosthetic valves INR 2.5 to 3.5 Prevention of recurrent MN INR 2.5 to 3.5 [place] [facility] BLOOD ORDERABLES Final Resul t Performing Organization Address [facility] Co de Phone Number [facility] [address] [place] [address] * (ABNORMAL) Anti Xa Level Unfractionated Heparin (04/01/2025 5:00 PM EDT) Anti Xa Level Unfractionated Heparin 1.08(HH) <1.00 IU/mL 04/01/2025 5:35 PM EDT [facility] Blood Venous blood specimen / Unknown Venipuncture / Unknown 04/01/2025 5:00 PM EDT 04/01/2025 5:03 PM EDT Narrative [facility] - 04/01/2025 5:35 PM EDT Therapeutic Range: UFH Full Dose and ACS/MN protocols*: 0.30 - 0.70 IU/mL UFH Low Dose protocol*: 0.25 - 0.50 IU/mL UFH prophylaxis: Not established [place] [facility] BLOOD ORDERABLES Final Resul t Performing Organization Address [facility] Co de Phone Number [facility] [address] [place] [address] * (ABNORMAL) CBC with Diff (04/01/2025 5:00 PM EDT) WBC Count 8.42 3.70 - 10.30 10*3/uL LAB HEMATOLOGY METHOD 04/01/2025 5:07 PM EDT [facility] RBC Count 4.19 3.90 - 5.20 10*6/uL LAB HEMATOLOGY METHOD 04/01/2025 5:07 PM EDT [facility] HGB 12.2 11.2 - 15.7 g/dL LAB HEMATOLOGY METHOD 04/01/2025 5:07 PM EDT [facility] HCT 37.9 34.0 - 45.0 % LAB HEMATOLOGY METHOD 04/01/2025 5:07 PM EDT [facility] Platelet Count 334 155 - 369 10*3/uL LAB HEMATOLOGY METHOD 04/01/2025 5:07 PM EDT [facility] MCV 91 79 - 98 fL LAB HEMATOLOGY METHOD 04/01/2025 5:07 PM EDT [facility] MCH 29.1 26.0 - 32.0 pg LAB HEMATOLOGY METHOD 04/01/2025 5:07 PM EDT [facility] MCHC 32.2 30.7 - 35.5 g/dL LAB HEMATOLOGY METHOD 04/01/2025 5:07 PM EDT [facility] RDW 15.6(H) 11.5 - 14.5 % LAB HEMATOLOGY METHOD 04/01/2025 5:07 PM EDT [facility] MPV 9.0 8.8 - 12.5 fL LAB HEMATOLOGY METHOD 04/01/2025 5:07 PM EDT [facility] nRBC 0.0 <=0.0 per 100 WBCs LAB HEMATOLOGY METHOD 04/01/2025 5:07 PM EDT [facility] Differential Type Automated LAB HEMATOLOGY METHOD 04/01/2025 5:07 PM EDT [facility] Neutrophils % 67 % LAB HEMATOLOGY METHOD 04/01/2025 5:07 PM EDT [facility] Lymphocytes % 22 % LAB HEMATOLOGY METHOD 04/01/2025 5:07 PM EDT [facility] Monocytes % 8 % LAB HEMATOLOGY METHOD 04/01/2025 5:07 PM EDT [facility] Eosinophils % 2 % LAB HEMATOLOGY METHOD 04/01/2025 5:07 PM EDT [facility] Basophils % 1 % LAB HEMATOLOGY METHOD 04/01/2025 5:07 PM EDT [facility] Immature Granulocytes % 0 % LAB HEMATOLOGY METHOD 04/01/2025 5:07 PM EDT [facility] Neutrophils Absolute 5.60 1.60 - 6.10 10*3/uL LAB HEMATOLOGY METHOD 04/01/2025 5:07 PM EDT [facility] Lymphocytes Absolute 1.83 1.20 - 3.90 10*3/uL LAB HEMATOLOGY METHOD 04/01/2025 5:07 PM EDT [facility] Monocytes Absolute 0.64 0.30 - 0.90 10*3/uL LAB HEMATOLOGY METHOD 04/01/2025 5:07 PM EDT [facility] Eosinophils Absolute 0.20 0.00 - 0.50 10*3/uL LAB HEMATOLOGY METHOD 04/01/2025 5:07 PM EDT [facility] Basophils Absolute 0.12(H) 0.00 - 0.10 10*3/uL LAB HEMATOLOGY METHOD 04/01/2025 5:07 PM EDT [facility] Immature Granulocytes Absolute 0.03 0.00 - 0.06 10*3/uL LAB HEMATOLOGY METHOD 04/01/2025 5:07 PM EDT [facility] Blood Venous blood specimen / Unknown Venipuncture / Unknown 04/01/2025 5:00 PM EDT 04/01/2025 5:03 PM EDT Narrative [facility] - 04/01/2025 5:07 PM EDT Therapeutic decision making should be based on absolute values, rather than percentages. [place] [facility] BLOOD ORDERABLES Final Resul t Performing Organization Address City/[facility]/ZIP Co de Phone Number [facility] [address] [place] [address] * Test Qualitative Plasma (04/01/2025 5:00 PM EDT) Test Negative Negative 04/01/2025 5:29 PM EDT [facility] Blood Venous blood specimen / Unknown Venipuncture / Unknown 04/01/2025 5:00 PM EDT 04/01/2025 5:03 PM EDT Narrative [facility] - 04/01/2025 5:29 PM EDT Reference Range: Males and non- females: Negative. [place] [facility] BLOOD ORDERABLES Final Resul t Performing Organization Address City/[facility]/ZIP Co de Phone Number [facility] [address] [place] [address] * (ABNORMAL) Comprehensive Metabolic Panel (04/01/2025 5:00 PM EDT) Glucose, Plasma 89 74 - 99 mg/dL 04/01/2025 5:29 PM EDT [facility] BUN, Plasma 20 8 - 23 mg/dL 04/01/2025 5:29 PM EDT [facility] Creatinine, Plasma 0.79 0.60 - 1.10 mg/dL 04/01/2025 5:29 PM EDT [facility] BUN/Creatinine Ratio 25 04/01/2025 5:29 PM EDT [facility] Sodium, Plasma 141 136 - 145 mmol/L 04/01/2025 5:29 PM EDT [facility] Potassium, Plasma 3.6 3.6 - 4.9 mmol/L 04/01/2025 5:29 PM EDT [facility] Chloride, Plasma 103 97 - 107 mmol/L 04/01/2025 5:29 PM EDT [facility] CO2, Plasma 27 22 - 29 mmol/L 04/01/2025 5:29 PM EDT [facility] Anion Gap 11 6 - 16 mmol/L 04/01/2025 5:29 PM EDT [facility] Total Calcium, Plasma 8.5(L) 8.9 - 10.2 mg/dL 04/01/2025 5:29 PM EDT [facility] Total Protein 6.1(L) 6.3 - 7.9 g/dL 04/01/2025 5:29 PM EDT [facility] Albumin, Plasma 3.4(L) 3.5 - 5.2 g/dL 04/01/2025 5:29 PM EDT [facility] AST, Plasma 18 10 - 35 U/L 04/01/2025 5:29 PM EDT [facility] ALT, Plasma 12 10 - 35 U/L 04/01/2025 5:29 PM EDT [facility] Alkaline Phosphatase, Plasma 156(H) 46 - 142 U/L 04/01/2025 5:29 PM EDT [facility] Total Bilirubin, Plasma 0.4 0.2 - 1.1 mg/dL 04/01/2025 5:29 PM EDT [facility] eGFRcr 84.2 mL/min/1.7 3m*2 04/01/2025 5:29 PM EDT [facility] Comment:Reported eGFRcr in m L/min/1.73m2 is based the CKD-EPI 2020 equation that does not use a race coefficient. Blood Venous blood specimen / Unknown Venipuncture / Unknown 04/01/2025 5:00 PM EDT 04/01/2025 5:03 PM EDT [place] [facility] BLOOD ORDERABLES Final Resul t Performing Organization Address City/[facility]/ZIP Co de Phone Number [facility] [address] [place] [address] * Light Blue Top (04/01/2025 4:58 PM EDT) Pathologist [facility] Extra Hold for add-ons 04/01/2025 8:01 PM EDT [facility] Comment:Auto resulted. Blood Venous blood specimen / Unknown 04/01/2025 4:58 PM EDT 04/01/2025 5:08 PM EDT us [place] [facility] BLOOD ORDERABLES Final Resul t Performing Organization Address [facility] Co de Phone Number [facility] [address] [place] [address] * POCT glucose meter (04/01/2025 4:58 PM EDT) [facility] POCT Glucose 92 74 - 99 mg/dL [...] 04/01/2025 5:36 PM EDT [facility] Cottage Cheese Maker ID Dolores Khan 04/01/2025 5:36 PM EDT HEALTHCARE LAB Device ID [id number] 04/01/2025 5:36 PM EDT [facility] Specimen Type POC Venous 04/01/2025 5:36 PM EDT [facility] Blood Venous blood specimen / Unknown 04/01/2025 4:58 PM EDT 04/01/2025 5:36 PM EDT us Maryjane Tejada MD LAB POINT OF CARE TE ST DOCKED DEVICE UNSOLICITED RESULTS Final Result Performing Organization Address City/[facility]/ZIP Co de Phone Number [facility] [address] [place] [address] * CT Angio Neck (04/01/2025 4:54 PM [...] No significant stenosis or occlusion. No aneurysm. [place] and Major Peripheral Branches: There [...] atherosclerosis. No significantstenosis or occlusion. No aneurysm. [place] and Major Peripheral Branches: There [...] MD on 04/01/2025 5:06 PM [place] [facility] PROCEDURES Final Result * CT Angio Head (04/01/2025 4:54 PM EDT) Anatomical Region Laterality Modality [place] Computed Tomogr aphy Impressions 04/01/2025 5:06 PM EDT Neck CTA: No hemodynamically significant stenosis is present within the cervical carotid and vertebral systems. Head CTA: No hemodynamically significant intracranial arterial stenosis or aneurysm is present. CRITICAL RESULT: None. COMMUNICATION: Per this written report. Drafted by Ana Roach MD on 04/01/2025 5:00 PM Final report signed by Aan Roach MD on 04/01/2025 5:06 PM Narrative [...] No significant stenosis or occlusion. No aneurysm. [place] and Major Peripheral Branches: There [...] atherosclerosis. No significantstenosis or occlusion. No aneurysm. [place] and Major Peripheral Branches: There [...] MD on 04/01/2025 5:06 PM [place] [facility] PROCEDURES Final Result * CT Head [...] physicians. COMPARISON: Outside Head CT 03/28/2025 from [facility] Outside brain MRI 04/09/2023 from [facility] FINDINGS: Diagnostic Quality: Adequate. The [...] physicians. COMPARISON: Outside Head CT 03/28/2025 from [facility] Outside brain MRI 04/09/2023 from [facility] FINDINGS: Diagnostic Quality: Adequate. The [...] 3 Months Insurance [employer] Care Teams Patient Support Assistant Relationship Specialty Start Date End Date Cindy Chow MD [address] [place] [address] [address] [place] [address] PCP - General 02/10/21
--- OUTSIDE RECORDS SUMMARY | 2025-06-15 07:51 | XMS_ITS | Encounter Summary ---
[facility] [address] [place] [address] Care Team Providers Care Material Yard Clerk Name Role Phone Renato Hwang MD Primary Care Provider [phone] Reason for Visit * Reason Onset Date Comments DR. LAW - CARDIAC CLEARANCE 05/11/2025 Encounter Details Date Type Department Care Team (Late st Contact Info) Description 05/11/2025 Telephone [facility] C[facility] [address] [place] [address] Britni Law MD [address] [place] [address] DR. LAW - CARDIAC CLEARANCE [...] on filedocumented in this encounter Care Teams Material Yard Clerk Relationship Specialty Start Date End Date Renato Hwang MD [address] [place] [address] PCP - General Emergency Medicine 04/10/24 documented as of this encounter
--- OUTSIDE RECORDS SUMMARY | 2025-06-15 07:51 | XMS_ITS | Encounter Summary ---
[facility] Address [address] [place] [address] Care Team Providers Care Applications Tester Name Role Phone Renato Hwang MD Primary Care Provider [phone] Encounter Details Date Type Department Care Team [...] on filedocumented in this encounter Care Teams Applications Tester Relationship Specialty Start Date End Date Renato Hwang MD [address] [place] [address] PCP - General Emergency Medicine 04/10/24 documented as of this encounter
--- OUTSIDE RECORDS SUMMARY | 2025-06-15 07:51 | XMS_ITS | Encounter Summary ---
[facility] Address [address] [place] [address] Care Team Providers Care Towel Sewer Name Role Phone Renato Hwang MD Primary Care Provider [phone] Encounter Details Date Type Department Care Team (Late st Contact Info) Description 05/13/2025 Telephone [facility] CARDIOLOGY [address] [place] [address] Gerri Mchugh APRN [address] [place], [place] [id number] Social History Tobacco Use Types Packs/Day Years [...] on filedocumented in this encounter Care Teams Towel Sewer Relationship Specialty Start Date End Date Renato Hwang MD [address] [place] [address] PCP - General Emergency Medicine 04/10/24 documented as of this encounter
--- OUTSIDE RECORDS SUMMARY | 2025-06-15 07:51 | XMS_ITS | Encounter Summary ---
Author Organization [facility] Address [address] [place] [address] Care Team Providers Care Clerk Of Superior Court Name Role Phone Renato Hwang MD Primary Care Provider [phone] Encounter Details Date Type Department Care Team (Late st Contact Info) Description 05/26/2025 Patient rounding ([facility] only) [facility] [address] [place] [address] Gerri Mchugh APRN [address] [place], [place] [id number] Social History Tobacco Use Types Packs/Day Years [...] is Tawny Marie and I am the Occupational Rehabilitation Aide for [facility]. I would like to thank you [...] your first visit to us as a [facility]? In the next few days, you will be receiving a Patient Experience Survey. Thank you for taking the time to answer a few questions today. I hope you have a good day. documented in this encounter Plan of Treatment Not on file documented as of this encounter Visit Diagnoses Not on filedocumented in this encounter Care Teams Clerk Of Superior Court Relationship Specialty Start Date End Date Renato Hwang MD [address] [place] [address] PCP - General Emergency Medicine 04/10/24 documented as of this encounter
--- OUTSIDE RECORDS SUMMARY | 2025-06-15 07:51 | XMS_ITS | Clinical Summary ---
Author Organization [facility] Address [address] [place] [address] Care Team Providers Care Steel Tier Name Role Phone Renato Hwang MD Primary Care Provider [phone] Allergies Active Allergy Reactions Criticality Noted Date [...] Active fluticasone (FLONASE) 50 MCG/ACT nasal spray [place] 1 spray every day by intranasal route. [...] Type Department Care Team Description 06/04/2025 Telephone [facility] [address] [address] Gerri Mchugh APRN A. SCHNEIDER - RECORDS 05/26/2025 12:45 PM EDT Office Visit [facility] [address] [place] [address] Gerri Mchugh, [place] Preop cardiovascular exam (Primary Dx); Smoker; History of DVT (deep vein thrombosis); Acute pain of right shoulder 05/26/2025 Patient rounding ([facility] only) [facility] [address] [address] Gerri Mchugh, [place] 05/26/2025 Travel 05/13/2025 Telephone [facility] [address] [address] Gerri Mchugh, [place] 05/11/2025 Telephone [facility] [address] [address] WAESPE - CARDIAC [...] ve Non-Reacti ve 07/11/2024 12:09 AM EDT [facility] Hep A IgM Non-Reacti ve Non-Reacti ve 07/11/2024 12:09 AM EDT [facility] Hep B C IgM Non-Reacti ve Non-Reacti ve 07/11/2024 12:09 AM EDT [facility] Hepatitis C Ab Non-Reacti ve Non-Reacti ve 07/11/2024 12:09 AM EDT [facility] Blood Venipuncture / Unknown 07/10/2024 3:32 PM EDT 07/10/2024 3:32 PM EDT Narrative [facility] - 07/11/2024 12:09 AM EDT Results may be falsely decreased if patient taking Biotin. us Rohan Mcelroy MD LAB BLOOD ORDERABLES Final Re sult [facility]
[address] [place] [address], from Last 3 Months or Most Recently Relevant to Health Maintenance Insurance [employer] Care Teams Steel Tier Relationship Specialty Start Date End Date Renato Hwang MD [address] [place] [address] PCP - General Emergency Medicine 04/10/24
--- OUTSIDE RECORDS SUMMARY | 2025-06-15 07:51 | XMS_ITS | Encounter Summary ---
Author Organization [employer] ([place], [place], [place], [place]) Address [address] [place] [address] Care Team Providers Care Stock Preparer Name Role Phone Unavailable Primary Care Provider Unavailabl e Reason for Visit * Reason Onset Date Comments Advice Only 06/04/2025 Encounter Details Date Type Department Care Team (Late st Contact Info) Description 06/04/2025 Telephone [facility] [address] [place] [address] Shamir Cruz MD [address] [place] [address] [place] [id number] Advice Only Social History Tobacco Use Types Packs/Day Years Used Date Smoking Tobacco: Never Assessed Comments Unknown Sex and Gender Information Value Date Recorded Sex Assigned at Not on file Legal Sex Female 2:25 PM CDT Gender Identity Not on file Sexual Orientation Not on file documented as of this encounter Miscellaneous Notes * Telephone Encounter - Shamir Cruz MD - 06/05/2025 6:44 AM EDT . documented in this encounter Plan of Treatment Not on file documented as of this encounter Visit Diagnoses Not on filedocumented in this encounter
[2025-06-15 08:14] LABS: Hematocrit 44.9 % (37.0-47.0); Hemoglobin 14.5 g/dL (12.2-16.2); Immature Granulocytes % 0.7 %; Mean Corpuscular HGB Conc 32.3 g/dL (31.8-35.4); Mean Corpuscular Hemoglobin 27.7 pg (27.0-31.2); Mean Corpuscular Volume 85.7 fl (81-99); Nucleated Red Blood Cells % 0 %; Platelet Count 317 K/mm3 (142-424); Red Blood Count 5.24 M/mm3 (4.20-5.40); Red Cell Distribution Width-SD 53.9 fL; White Blood Count 12.2 K/mm3 (4.8-10.8)
[2025-06-15 08:57] LABS: Anion Gap 7.6 mEq/L (5-15); Blood Urea Nitrogen 21 mg/dl (7-17); Calcium 8.8 mg/dl (8.4-10.2); Carbon Dioxide 31 mmol/L (22.0-30.0); Chloride 105 mmol/L (98-107); Creatinine,Serum 0.90 mg/dl (0.52-1.04); Estimated Glomerular Filt Rate 63 ml/min (>60); GFR (African American) 77 ML/MIN (>60); Glucose 94 mg/dl (74-100); Potassium 3.6 mmoL/L (3.5-5.1); Sodium 140 mmol/L (136-145)
== END 2025-06-15 23:59 | disposition home or self-care (01) ==
LOC: LAB 07:48
PROVIDERS: PCP Emergency Medicine; Visit Provider Nurse Practitioner Family
DX: I21.4 Non-ST elevation (NSTEMI) myocardial infarction (principal)
CPT/HCPCS: 36415; 80048; 85025